=== PATIENT | male | born 1935 | race Caucasian/White ===

== ENCOUNTER 2017-12-12 14:30 | Inpatient (IN) | payer MEDICARE, BC, OTHER, SELFPAY ==
[2017-12-12] VITALS (12 sets, daily range): BP systolic 53–159; BP diastolic 39–77; PULSE 64–101; RESP 16–30; TEMP 36.4–37.3; O2SAT 90–97; BMI 30.2; BMI 30.7
--- NOTE | 2017-12-12 14:42 | ED.RN ---
PT DECLINES WHEN ASKED IF HE WOULD LIKE US TO CONTACT HIS DAUGHTER.
--- NOTE | 2017-12-12 14:51 | EKG12_ITS ---
Test Reason : HYPOTENSION Blood Pressure : / mmHG Vent. Rate : 094 BPM Atrial Rate : 094 BPM P-R Int : 240 ms QRS Dur : 124 ms QT Int : 400 ms P-R-T Axes : 000 143 026 degrees QTc Int : 500 ms Sinus rhythm with 1st degree A-V block with occasional Premature ventricular complexes Right bundle branch block Left posterior fascicular block Bifascicular block Inferior infarct , age undetermined Abnormal ECG Confirmed by ALICIA JENSEN, SANDRA ([id number]), restaurant expeditor ANIL DYER ([id number]) on 12/14/2017 2:30:44 PM Referred By: HARSH/GARRETT Confirmed By:SANDRA VARGAS MD
--- NOTE | 2017-12-12 14:51 | RAD_ITS ---
STUDY: X-RAY CHEST REASON FOR EXAM: Male, 82 years old. Cough. TECHNIQUE: Single AP portable view of the chest. COMPARISON: Comparison is made with prior study dated September 27, 2012. FINDINGS: EKG electrodes are seen. Since prior study, there has been progressive pleural-parenchymal changes in the left hemithorax. This may represent either progressive scarring or superimposed left lower lobe infiltrate. Left pleural scarring. Sternal cerclage wires and vascular clips are present from a prior sternotomy and coronary artery bypass graft procedure (CABG). Normal mediastinum and yosi. Normal visualized pulmonary arteries. There is atherosclerotic calcification of the aortic arch with tortuosity. There are diffuse degenerative changes of the visualized thoracic spine. Normal visualized ribs, clavicles, and shoulders. There is no demonstrated abnormality of the visualized soft tissue structures of the upper abdomen. RAD/Chest 1 View (Portable) IMPRESSION: Since prior study, there has been progressive pleural-parenchymal changes in the left hemithorax. This may represent either progressive fibrosis versus fibrosis and superimposed left basilar atelectasis and/or infiltrate. Radiographic follow-up is recommended. Electronically Signed: Rikki Hastings MD at 15:18 EDT Tel [phone], Service support ,
[2017-12-12 15:09] LABS: Absolute Lymphocyte Count 2.21 X10^3/ul (0.83-4.51); Absolute Neutrophil Count 11.5 X10^3/uL (2.0-7.7); Basophil# 0.07 X10^3/uL; Basophil% 0.5 % (0-1); Eosinophil# 0.02 X10^3/uL; Eosinophils% 0.1 % (0-5); Hematocrit 45.3 % (40-54); Hemoglobin 14.7 g/dl (13.0-16.5); Lymphocyte # 2.21 X10^3/ul (4.0); Lymphocyte % 15.1 % (19-41); Mean Corp Hgb Conc 32.5 g/gl (32-36); Mean Corpuscular Hgb 29.3 pg (27.0-32.0); Mean Corpuscular Volume 90.2 fL (80-94); Mean Platelet Vol. 9.6 fl (6.2-12.0); Monocyte# 0.85 X10^3/uL; Monocyte% 5.8 % (0-10); Neutrophil # 11.47 X10^3/uL (2.7-7.7); Neutrophil % 78.4 % (47-70); Platelet Count 285 K/mm3 (150-450); RBC Distribution Width CV 15.2 % (11.6-14.6); Red Blood Count 5.02 M/mm3 (4.6-6.2); White Blood Count 14.6 K/mm3 (4.4-11.0)
[2017-12-12 15:10] LABS: POSITIVE COUNT NO; POSITIVE DIFFERENTIAL NO; POSITIVE MORPHOLOGY NO
[2017-12-12 15:11] LABS: Prothrombin Time (Protime)PT. 13.6 SECONDS (11.7-14.9)
[2017-12-12] MEDS: 0.9% Normal Saline 1,000 ML IV.SOLN. 3100 ML IV (15:11)
[2017-12-12] MEDS: Ondansetron 4 MG/2 ML Vial IV (15:11)
[2017-12-12 15:12] LABS: Partial Thromboplast Time 25.7 Seconds (24.1-36.2)
[2017-12-12 15:14] LABS: AST(SGOT) 12 U/L (15-37); Alanine Aminotransfer ALT/SGPT 13 U/L (16-61); Albumin, Serum 3.8 g/dL (3.2-5.0); Alkaline Phosphatase 111 U/L (45-117); Anion Gap 9 (5-15); BUN 22 mg/dL (7-18); BUN/Creat Ratio 9.1 RATIO (10-20); Calcium,Total 9.1 mg/dL (8.5-10.1); Chloride 107 mmol/L (98-107); Creatinine, Serum 2.43 mg/dL (0.70-1.30); EST Glomerular Filtration Rate 27 mL/min (>60); Est Glom Filt Rate - Afr Amer 33 mL/min (>60); Glucose 128 mg/dL (74-106); Potassium 4.6 mmol/L (3.5-5.1); Protein, Total 7.8 g/dL (6.4-8.2); Sodium Level 141 mmol/L (136-145)
[2017-12-12 15:16] LABS: Bedside Glucose 122 mg/dL (70-110)
[2017-12-12 15:57] LABS: Lactic Acid 2.2 mmol/L (0.4-2.0)
--- NOTE | 2017-12-12 16:34 | ED.DCSUM_ITS ---
- ER Visit Summary Date of Service: 12/12/17 Chief Complaint: Nausea and vomiting History of Present Illness: The patient is a 82 M presenting for evaluation secondary to nausea and vomiting. Patient reports over the course last 3-4 days he has been having a significant amount of nausea vomiting and difficulty with keeping down fluids. Patient states that his emesis is nonbloody nonbilious, he denies any persistent abdominal pain. Patient reports that he has baseline dyspnea that is unchanged denies any chest pain denies any fevers denies any diarrhea. No blood in his emesis or blood in his stool. Review of systems otherwise negative. Physical Examination: Vital signs are notable for a blood pressure of 53/39. Ill-appearing male lying in the bed somewhat pale and diaphoretic but otherwise not in physiologic distress. No conjunctival pallor no scleral icterus. Dry mucous membranes. No JVD. Heart was regular rate and rhythm lungs sounds clear. Abdomen was soft nontender nondistended. Skin was somewhat cool and diaphoretic and peripheral pulses are decreased and +1 bilaterally no lateralizing neurological deficits. Test Results: CBC demonstrates leukocytosis of 14, chemistry shows acute kidney injury BUN of 22, creatinine 2.43. Lactic acid elevated 2.2. Chest x-ray shows atelectasis. Emergency Department Course and Treatment: Patient presented with a significant amount of hypotension. Immediately 2 IVs were established and the patient was given a 30 cc/kg fluid bolus. She actually had improvement of his blood pressure drastically from the 50s over 30s to 156/63 on repeat evaluation. Patient has evidence of lactic acidosis and elevated creatinine. I did not identify any other evidence of infection on this patient. Given the patient's profound hypotension I do believe that he requires admission and observation. I discussed this with the hospitalist and the patient will be admitted. Disposition: Admission Impression: 1. Hypertension 2. Dehydration 3. Acute kidney injury 4. Nausea and vomiting Critical care time 40 minutes This note was generated with [employer] dictation software. It may contain incorrect words, spelling, and punctuation that were not noted in review of the chart prior to signing ED Disposition - Plan for ED Patient: Chief Complaint: Nausea/Vomiting Referrals: Gomez Mcnally MD [Primary Care Provider] -
--- NOTE | 2017-12-12 16:53 | PCM.HP.STD ---
Problem List (1) Hyperlipidemia Status: Chronic (2) Stage III chronic kidney disease Status: Chronic (3) Type 2 diabetes mellitus Status: Chronic (4) Hypertension Status: Chronic (5) Status post coronary artery bypass graft Status: Chronic (6) Coronary artery disease Status: Chronic History of Present Illness Date of Admission: 12/12/17 Chief Complaint: Nausea and vomiting, low blood pressure. The patient is a 82 year old M with past medical history as mentioned above was referred to the ER by his PCP because of low blood pressure. The patient is poor informant and was not able to provide good history. He was sent by his PCP today for low blood pressure and complains of nausea and vomiting. He mentioned that he has been having nausea and minimal vomiting for last 3-4 days. He mentioned that the vomitus is nonbloody, nonbilious and he denies any abdominal pain. He denies fever chills. He denies constipation or diarrhea. He denies urinary symptoms. Denied cough or sputum production. Denied chest pain or shortness of breath. He has a history of type 2 diabetes mellitus and he has been on insulin, glipizide and Onglyza and his blood sugar seemed to be under control. He has history of CAD status post CABG followed by stents and he has been on aspirin, Plavix, beta blockers and AYAN inhibitors. He has a history of stage III chronic kidney disease and his creatinine has been around 1.9-2 mg/dL. Upon arrival to ER, blood pressure was very low at 53/59 and 92/51. He was afebrile, heart rate was stable and pulse ox is stable. His routine blood work is remarkable for leukocytosis, creatinine of 2.43. Lactic acid was 2.2. LFT was unremarkable. Chest x-ray revealed left mid and lower zone reticular shadow which could be due to fibrosis, no significant change compared to previous x-ray. EKG revealed sinus rhythm with first-degree AV block, AZ interval is 240 ms and also showed a right bundle branch block, no acute ischemic changes. He is being admitted for acute kidney injury double stage III chronic kidney disease, hypotension and lactic acidosis. Past Medical History Past Medical History (Chronic Problems): Chronic Problems Hyperlipidemia (Chronic) Stage III chronic kidney disease (Chronic) Type 2 diabetes mellitus (Chronic) Hypertension (Chronic) Status post coronary artery bypass graft (Chronic) Coronary artery disease (Chronic) Allergies venom-honey bee [bee venom (honey bee)] Allergy (Verified 12/12/17 14:39) Hives Home Medications: Ambulatory Orders Medication Instructions Recorded Atorvastatin Calcium [Lipitor] 40 mg PO QHS 02/17/16 Clopidogrel Bisulfate [Plavix] 75 mg PO DAILY 02/17/16 Furosemide [Lasix] 20 mg PO QODAY 02/17/16 Isosorbide Mononitrate [Isosorbide 30 mg PO DAILY 02/17/16 Mononitrate ER] Metoprolol Tartrate [Lopressor 12.5 mg PO BID 02/17/16 (Beta Vianey)] Omeprazole [Prilosec] 40 mg PO DAILY 02/17/16 Potassium Chloride [Klor-Con 10] 10 meq PO DAILY 02/17/16 Acetaminophen [Tylenol Extra 500 mg PO Q6H PRN PRN 12/12/17 Strength] Glipizide 5 mg PO DAILY 12/12/17 Glucosam/Chond/MSM/[place]/Hyal 1 each PO DAILY 12/12/17 [Glucosamine-Chondr Complex Tab] Insulin Glargine,Hum.rec.anlog 20 unit SQ QHS 12/12/17 [Lantus] Insulin Glargine,Hum.rec.anlog 46 unit SQ BREAKFAST 12/12/17 [Lantus] Lisinopril [Zestril] 2.5 mg PO QHS 12/12/17 Menthol [Biofreeze] 1 applic TP PRN PRN 12/12/17 Multivitamin [Daily Multiple 1 each PO DAILY 12/12/17 Vitamin] Koppel Xl 1 tab PO BID 12/12/17 Saxagliptin HCl [Onglyza] 2.5 mg PO DAILY 12/12/17 Stress Care 2 cap PO DAILY 12/12/17 Surgical History: noncontributory Psychiatric History: No pertinent psych hx Lives: Spouse/ Significant Other Smoking Status: Current every day smoker Tobacco Use: Cigarettes Alcohol: None Drugs: None - *Family History Maternal History Items: No pertinent history Paternal History Items: No pertinent history Review of Systems Constitutional: Denies: Anorexia, Chills, Fever, Weakness Eyes: Denies: Blurred vision, Double vision, Drainage, Redness HEENT: Denies: Difficulty Hearing, Ear Pain, Eye Pain, Nasal Congestion, Sore Throat Cardiovascular: Reports: Light Headedness. Denies: Chest Pain, Chest Tightness, Edema, Heaviness, Palpitations, Syncope Respiratory: Denies: Cough, Pleuritic Pain, Shortness of Breath, Sputum production, Wheezing Gastrointestinal: Reports: Nausea, Vomiting. Denies: Abdominal Pain, Constipation, Diarrhea Genitourinary: Denies: Dysuria, Frequency, Hematuria Musculoskeletal: Denies: Arm Pain, Back Pain, Foot Pain Skin: Denies: Dryness, Rash Neurological: Denies: Balance problems, Double vision, Change in Speech, Slurred speech, Confusion, Focal weakness, Incoordination, Numbness Psychiatric: Denies: Anxiety, Depression Endocrine: Denies: Change in Body Habitus, Polydipsia VTE Information - Inpt Only VTE Present on Admission: No VTE Mechan Device Prophylaxis: None VTE Pharm Prophylaxis ordered?: Yes - Physical Exam General: Alert, Oriented x3, Cooperative, No apparent distress HEENT: Atraumatic, PERRLA, EOMI, Normocephalic Oral: Moist Mucosa, No Gingival or Mucosal Lesions/ Ulcerations Neck: Supple, No JVD, Negative Carotid Bruits, Trachea Midline, Thyroid Normal Size and Texture Lungs: Clear to auscultation, No rhonchi, No wheeze, No rales, Diminished Cardiovascular: Regular rate, Regular Rhythm, Normal S1, Normal S2, PMI Normal Abdomen: Bowel Sounds Present, Soft, Non Tender, Non-Distended, No Hepato-splenomegaly, Obese Extremities: No clubbing, No cyanosis, No edema Skin: No rashes, No breakdown Lymphatic: No Cervical, Supraclavicular, or Inguinal Adenopathy Neurological: Cranial nerves II-XII grossly intact, Motor Exam 5/5 strength throughout Psych/Mental Status: Normal Affect, Appropriate, Alert and oriented to time, place, person, mood and affect Vital Signs Temp Pulse Resp BP Pulse Ox 98.2 F 81 19 H 156/63 H 97 12/12/17 16:05 12/12/17 16:04 12/12/17 16:04 12/12/17 16:04 12/12/17 16:04 Oxygen Flow Rate (L/min) 2 Oxygen Delivery Method Nasal Cannula Weight: 242 lb Body Mass Index (BMI) 30.2 Finger Stick Blood Glucose 122 Laboratory Tests Past 24 Hrs 12/12/17 12/12/17 12/12/17 14:41 14:41 14:41 WBC 14.6 H RBC 5.02 Hgb 14.7 Hct 45.3 MCV 90.2 MCH 29.3 MCHC 32.5 RDW 15.2 H RDW Differential 50.0 H Plt Count 285 MPV 9.6 Immature Gran % (Auto) 0.100 Neut % (Auto) 78.4 H Lymph % (Auto) 15.1 L Vilas % (Auto) 5.8 Eos % (Auto) 0.1 Baso % (Auto) 0.5 Absolute Neuts (auto) 11.5 H Absolute Lymphs (auto) 2.21 Total Counted Not Reportable PT 13.6 INR 1.0 APTT 25.7 Sodium 141 Potassium 4.6 Chloride 107 Carbon Dioxide 25.0 Anion Gap 9 BUN 22 H Creatinine 2.43 H Estim Creat Clear Calc 28.50 Est GFR (MDRD) Af Amer 33 L Est GFR (MDRD) Non-Af 27 L BUN/Creatinine Ratio 9.1 L Glucose 128 H Lactic Acid Calcium 9.1 Total Bilirubin 0.60 AST 12 L ALT 13 L Alkaline Phosphatase 111 Total Protein 7.8 Albumin 3.8 Globulin 4.0 Albumin/Globulin Ratio 1.0 12/12/17 15:02 WBC RBC Hgb Hct MCV MCH MCHC RDW RDW Differential Plt Count MPV Immature Gran % (Auto) Neut % (Auto) Lymph % (Auto) Vilas % (Auto) Eos % (Auto) Baso % (Auto) Absolute Neuts (auto) Absolute Lymphs (auto) Total Counted PT INR APTT Sodium Potassium Chloride Carbon Dioxide Anion Gap BUN Creatinine Estim Creat Clear Calc Est GFR (MDRD) Af Amer Est GFR (MDRD) Non-Af BUN/Creatinine Ratio Glucose Lactic Acid 2.2 H Calcium Total Bilirubin AST ALT Alkaline Phosphatase Total Protein Albumin Globulin Albumin/Globulin Ratio POC Glucose 12/12/17 15:09 POC Glucose 122 H Clinical Impression(s) from Imaging Studies Chest X-Ray 12/12/17 14:51 IMPRESSION: Since prior study, there has been progressive pleural-parenchymal changes in the left hemithorax. This may represent either progressive fibrosis versus fibrosis and superimposed left basilar atelectasis and/or infiltrate. Radiographic follow-up is recommended. Electronically Signed: Rikki Hastings MD at 15:18 EDT Tel [phone], Service support , Assessment/Plan This is an 82 years old male patient presented to the ED from his PCPs office for complaints of nausea and vomiting as well as very low blood pressure, found to have acute on chronic renal failure as well as lactic acidosis and he is being admitted for treatment. #1 hypotension: Initial blood pressure upon arrival to ER was 53/59. With IV fluid bolus therapy, blood pressure significantly improved. Patient is afebrile, heart rate stable, pulse ox is maintained on 2 L of oxygen. EKG reviewed as above. Chest x-ray showed chronic findings, no acute infiltrate. This is likely because of nausea and vomiting as well as his antihypertensive medications and diuretics. Plan: Admit to [facility] floor, cardiac monitoring, IV fluids, hold Lasix, lisinopril, repeat CBC and BMP tomorrow morning, repeat orthostatic vitals tomorrow morning, PT OT evaluation and treatment. #2 acute kidney injury double stage III chronic kidney disease: His baseline creatinine has been around 2 mg/dL. Admission creatinine is 2.4, this is likely because of dehydration, hypotension as well as diuretics and AYAN inhibitors. Patient has been on Lasix and lisinopril. Plan: IV fluids, input output chart, hold lisinopril and Lasix, repeat BMP tomorrow morning. #3 lactic acidosis: This is likely because of hypotension. He does have leukocytosis which is likely reactive secondary to stress and hypotension. Chest x-ray showed no acute findings, chronic findings noted. He denies urinary symptoms. At this time, infection is unlikely. Plan for IV fluids, repeat lactic acid in 3 hours, blood culture sent. #4 CAD status post CABG and stents: EKG reviewed, no acute ischemic changes. Patient denies any chest pain. Continue Plavix, statins, beta blockers, nitrates and lisinopril. #5 type 2 diabetes mellitus: ADA diet, Accu-Cheks, insulin scale, continue glipizide, continue Lantus insulin, continue Onglyza, sliding scale. #6 hypertension: At this time, blood pressure improved. Plan to hold Lasix and lisinopril, continue metoprolol and nitrates. #7 stage III chronic kidney disease: Baseline creatinine has been around 1.9-2 mg/dL, plan as above. #8 hyperlipidemia: Continue statins. #9 DVT prophylaxis: Subcu heparin. This note was generated with [employer] dictation software. It may contain incorrect words, spelling, and punctuation that were not noted in checking the note before signing. Code Visit Inpatient E&M: 42870 Init Hosp L3
--- NOTE | 2017-12-12 17:04 | HP.PCM_ITS ---
Problem List (1) Hyperlipidemia Status: Chronic (2) Stage III chronic kidney disease Status: Chronic (3) Type 2 diabetes mellitus Status: Chronic (4) Hypertension Status: Chronic (5) Status post coronary artery bypass graft Status: Chronic (6) Coronary artery disease Status: Chronic History of Present Illness Date of Admission: 12/12/17 Chief Complaint: Nausea and vomiting, low blood pressure. The patient is a 82 year old M with past medical history as mentioned above was referred to the ER by his PCP because of low blood pressure. The patient is poor informant and was not able to provide good history. He was sent by his PCP today for low blood pressure and complains of nausea and vomiting. He mentioned that he has been having nausea and minimal vomiting for last 3-4 days. He mentioned that the vomitus is nonbloody, nonbilious and he denies any abdominal pain. He denies fever chills. He denies constipation or diarrhea. He denies urinary symptoms. Denied cough or sputum production. Denied chest pain or shortness of breath. He has a history of type 2 diabetes mellitus and he has been on insulin, glipizide and Onglyza and his blood sugar seemed to be under control. He has history of CAD status post CABG followed by stents and he has been on aspirin, Plavix, beta blockers and AYAN inhibitors. He has a history of stage III chronic kidney disease and his creatinine has been around 1.9-2 mg/dL. Upon arrival to ER, blood pressure was very low at 53/59 and 92/ 51. He was afebrile, heart rate was stable and pulse ox is stable. His routine blood work is remarkable for leukocytosis, creatinine of 2.43. Lactic acid was 2.2. LFT was unremarkable. Chest x-ray revealed left mid and lower zone reticular shadow which could be due to fibrosis, no significant change compared to previous x-ray. EKG revealed sinus rhythm with first-degree AV block, WA interval is 240 ms and also showed a right bundle branch block, no acute ischemic changes. He is being admitted for acute kidney injury double stage III chronic kidney disease, hypotension and lactic acidosis. Past Medical History Past Medical History (Chronic Problems): Chronic Problems Hyperlipidemia (Chronic) Stage III chronic kidney disease (Chronic) Type 2 diabetes mellitus (Chronic) Hypertension (Chronic) Status post coronary artery bypass graft (Chronic) Coronary artery disease (Chronic) Allergies venom-honey bee [bee venom (honey bee)] Allergy (Verified 12/12/17 14:39) Hives Home Medications: Ambulatory Orders Medication Instructions Recorded Atorvastatin Calcium [Lipitor] 40 mg PO QHS 02/17/16 Clopidogrel Bisulfate [Plavix] 75 mg PO DAILY 02/17/16 Furosemide [Lasix] 20 mg PO QODAY 02/17/16 Isosorbide Mononitrate [Isosorbide 30 mg PO DAILY 02/17/16 Mononitrate ER] Metoprolol Tartrate [Lopressor 12.5 mg PO BID 02/17/16 (Beta Vianey)] Omeprazole [Prilosec] 40 mg PO DAILY 02/17/16 Potassium Chloride [Klor-Con 10] 10 meq PO DAILY 02/17/16 Acetaminophen [Tylenol Extra 500 mg PO Q6H PRN PRN 12/12/17 Strength] Glipizide 5 mg PO DAILY 12/12/17 Glucosam/Chond/MSM/Stamps/Hyal 1 each PO DAILY 12/12/17 [Glucosamine-Chondr Complex Tab] Insulin Glargine,Hum.rec.anlog 20 unit SQ QHS 12/12/17 [Lantus] Insulin Glargine,Hum.rec.anlog 46 unit SQ BREAKFAST 12/12/17 [Lantus] Lisinopril [Zestril] 2.5 mg PO QHS 12/12/17 Menthol [Biofreeze] 1 applic TP PRN PRN 12/12/17 Multivitamin [Daily Multiple 1 each PO DAILY 12/12/17 Vitamin] [place] Xl 1 tab PO BID 12/12/17 Saxagliptin HCl [Onglyza] 2.5 mg PO DAILY 12/12/17 Stress Care 2 cap PO DAILY 12/12/17 Surgical History: noncontributory Psychiatric History: No pertinent psych hx Lives: Spouse/ Significant Other Smoking Status: Current every day smoker Tobacco Use: Cigarettes Alcohol: None Drugs: None - *Family History Maternal History Items: No pertinent history Paternal History Items: No pertinent history Review of Systems Constitutional: Denies: Anorexia, Chills, Fever, Weakness Eyes: Denies: Blurred vision, Double vision, Drainage, Redness HEENT: Denies: Difficulty Hearing, Ear Pain, Eye Pain, Nasal Congestion, Sore Throat Cardiovascular: Reports: Light Headedness. Denies: Chest Pain, Chest Tightness , Edema, Heaviness, Palpitations, Syncope Respiratory: Denies: Cough, Pleuritic Pain, Shortness of Breath, Sputum production, Wheezing Gastrointestinal: Reports: Nausea, Vomiting. Denies: Abdominal Pain, Constipation, Diarrhea Genitourinary: Denies: Dysuria, Frequency, Hematuria Musculoskeletal: Denies: Arm Pain, Back Pain, Foot Pain Skin: Denies: Dryness, Rash Neurological: Denies: Balance problems, Double vision, Change in Speech, Slurred speech, Confusion, Focal weakness, Incoordination, Numbness Psychiatric: Denies: Anxiety, Depression Endocrine: Denies: Change in Body Habitus, Polydipsia VTE Information - Inpt Only VTE Present on Admission: No VTE Mechan Device Prophylaxis: None VTE Pharm Prophylaxis ordered?: Yes - Physical Exam General: Alert, Oriented x3, Cooperative, No apparent distress HEENT: Atraumatic, PERRLA, EOMI, Normocephalic Oral: Moist Mucosa, No Gingival or Mucosal Lesions/ Ulcerations Neck: Supple, No JVD, Negative Carotid Bruits, Trachea Midline, Thyroid Normal Size and Texture Lungs: Clear to auscultation, No rhonchi, No wheeze, No rales, Diminished Cardiovascular: Regular rate, Regular Rhythm, Normal S1, Normal S2, PMI Normal Abdomen: Bowel Sounds Present, Soft, Non Tender, Non-Distended, No Hepato- splenomegaly, Obese Extremities: No clubbing, No cyanosis, No edema Skin: No rashes, No breakdown Lymphatic: No Cervical, Supraclavicular, or Inguinal Adenopathy Neurological: Cranial nerves II-XII grossly intact, Motor Exam 5/5 strength throughout Psych/Mental Status: Normal Affect, Appropriate, Alert and oriented to time, place, person, mood and affect Vital Signs Temp Pulse Resp BP Pulse Ox 98.2 F 81 19 H 156/63 H 97 12/12/17 16:05 12/12/17 16:04 12/12/17 16:04 12/12/17 16:04 12/12/17 16:04 Oxygen Flow Rate (L/min) 2 Oxygen Delivery Method Nasal Cannula Weight: 242 lb Body Mass Index (BMI) 30.2 Finger Stick Blood Glucose 122 Laboratory Tests Past 24 Hrs 12/12/17 12/12/17 12/12/17 14:41 14:41 14:41 WBC 14.6 H RBC 5.02 Hgb 14.7 Hct 45.3 MCV 90.2 MCH 29.3 MCHC 32.5 RDW 15.2 H RDW Differential 50.0 H Plt Count 285 MPV 9.6 Immature Gran % (Auto) 0.100 Neut % (Auto) 78.4 H Lymph % (Auto) 15.1 L [place] % (Auto) 5.8 Eos % (Auto) 0.1 Baso % (Auto) 0.5 Absolute Neuts (auto) 11.5 H Absolute Lymphs (auto) 2.21 Total Counted Not Reportable PT 13.6 INR 1.0 APTT 25.7 Sodium 141 Potassium 4.6 Chloride 107 Carbon Dioxide 25.0 Anion Gap 9 BUN 22 H Creatinine 2.43 H Estim Creat Clear Calc 28.50 Est GFR (MDRD) Af Amer 33 L Est GFR (MDRD) Non-Af 27 L BUN/Creatinine Ratio 9.1 L Glucose 128 H Lactic Acid Calcium 9.1 Total Bilirubin 0.60 AST 12 L ALT 13 L Alkaline Phosphatase 111 Total Protein 7.8 Albumin 3.8 Globulin 4.0 Albumin/Globulin Ratio 1.0 12/12/17 15:02 WBC RBC Hgb Hct MCV MCH MCHC RDW RDW Differential Plt Count MPV Immature Gran % (Auto) Neut % (Auto) Lymph % (Auto) [place] % (Auto) Eos % (Auto) Baso % (Auto) Absolute Neuts (auto) Absolute Lymphs (auto) Total Counted PT INR APTT Sodium Potassium Chloride Carbon Dioxide Anion Gap BUN Creatinine Estim Creat Clear Calc Est GFR (MDRD) Af Amer Est GFR (MDRD) Non-Af BUN/Creatinine Ratio Glucose Lactic Acid 2.2 H Calcium Total Bilirubin AST ALT Alkaline Phosphatase Total Protein Albumin Globulin Albumin/Globulin Ratio POC Glucose 12/12/17 15:09 POC Glucose 122 H Clinical Impression(s) from Imaging Studies Chest X-Ray 12/12/17 14:51 IMPRESSION: Since prior study, there has been progressive pleural-parenchymal changes in the left hemithorax. This may represent either progressive fibrosis versus fibrosis and superimposed left basilar atelectasis and/or infiltrate. Radiographic follow-up is recommended. Electronically Signed: Rikki Hastings MD at 15:18 EDT Tel [phone], Service support , Assessment/Plan This is an 82 years old male patient presented to the ED from his PCPs office for complaints of nausea and vomiting as well as very low blood pressure, found to have acute on chronic renal failure as well as lactic acidosis and he is being admitted for treatment. #1 hypotension: Initial blood pressure upon arrival to ER was 53/59. With IV fluid bolus therapy, blood pressure significantly improved. Patient is afebrile , heart rate stable, pulse ox is maintained on 2 L of oxygen. EKG reviewed as above. Chest x-ray showed chronic findings, no acute infiltrate. This is likely because of nausea and vomiting as well as his antihypertensive medications and diuretics. Plan: Admit to [facility] floor, cardiac monitoring, IV fluids, hold Lasix, lisinopril, repeat CBC and BMP tomorrow morning, repeat orthostatic vitals tomorrow morning, PT OT evaluation and treatment. #2 acute kidney injury double stage III chronic kidney disease: His baseline creatinine has been around 2 mg/dL. Admission creatinine is 2.4, this is likely because of dehydration, hypotension as well as diuretics and AYAN inhibitors. Patient has been on Lasix and lisinopril. Plan: IV fluids, input output chart, hold lisinopril and Lasix, repeat BMP tomorrow morning. #3 lactic acidosis: This is likely because of hypotension. He does have leukocytosis which is likely reactive secondary to stress and hypotension. Chest x-ray showed no acute findings, chronic findings noted. He denies urinary symptoms. At this time, infection is unlikely. Plan for IV fluids, repeat lactic acid in 3 hours, blood culture sent. #4 CAD status post CABG and stents: EKG reviewed, no acute ischemic changes. Patient denies any chest pain. Continue Plavix, statins, beta blockers, nitrates and lisinopril. #5 type 2 diabetes mellitus: ADA diet, Accu-Cheks, insulin scale, continue glipizide, continue Lantus insulin, continue Onglyza, sliding scale. #6 hypertension: At this time, blood pressure improved. Plan to hold Lasix and lisinopril, continue metoprolol and nitrates. #7 stage III chronic kidney disease: Baseline creatinine has been around 1.9-2 mg/dL, plan as above. #8 hyperlipidemia: Continue statins. #9 DVT prophylaxis: Subcu heparin. This note was generated with [employer] dictation software. It may contain incorrect words, spelling, and punctuation that were not noted in checking the note before signing. Code Visit Inpatient E&M: 39705 Init Hosp L3
[2017-12-12] MEDS: 0.9% Normal Saline 1,000 ML 125 ML IV (17:23)
[2017-12-12 19:11] LABS: Reflex Lactate? Y
[2017-12-12 19:30] LABS: Lactic Acid 1.1 mmol/L (0.4-2.0)
[2017-12-12] MEDS: CLARIFY ORDER NOTE (22:28)
[2017-12-12] MEDS: Metoprolol Tartrate 25 MG Tablet 12.5 MG PO (22:39)
[2017-12-12] MEDS: Atorvastatin Calcium 40 MG Tablet PO (22:39)
[2017-12-12] MEDS: Insulin Lispro 100 UNIT/ML INSULN.PEN SC (22:40)
[2017-12-12 23:26] LABS: Bedside Glucose 154 mg/dL (70-110)
[2017-12-13] VITALS (11 sets, daily range): BP systolic 137–174; BP diastolic 60–92; PULSE 64–93; RESP 18–20; TEMP 36.7–37.1; O2SAT 95–98
[2017-12-13 01:02] LABS: Bacteria 0 SEEN /hpf (None Seen); Mucous, Urine 0 SEEN /hpf (<or=2+); Red Blood Cells-Urine 0 SEEN /hpf (0-5); Squamous Epithelial Cells - UA 0 SEEN /hpf (0-5); White Blood Cells 0 SEEN /hpf (0-5)
[2017-12-13 01:05] LABS: Color, Urine Yellow (Yellow); Glucose, Dipstick Normal (Normal); Ketone-Dipstick Negative (Negative); Leukocyte Esterase-Dipstick Negative /ul (Negative); Nitrite-Dipstick Negative (Negative); Occult Blood-Urine Negative /ul (Negative); Protein-Dipstick 30 mg/dl (Negative); Urine Bilirubin Dipstick Negative (Negative); Urine Clarity Clear (Clear); Urine Urobilinogen Normal (Normal)
[2017-12-13] MEDS: 0.9% Normal Saline 1,000 ML 125 ML IV ×3 (03:39→23:10)
[2017-12-13 06:10] LABS: Anion Gap 7 (5-15); BUN 22 mg/dL (7-18); BUN/Creat Ratio 12.1 RATIO (10-20); Calcium,Total 8.2 mg/dL (8.5-10.1); Chloride 113 mmol/L (98-107); Creatinine, Serum 1.82 mg/dL (0.70-1.30); EST Glomerular Filtration Rate 38 mL/min (>60); Est Glom Filt Rate - Afr Amer 46 mL/min (>60); Estimated Creatinine Clearance 38.05 ml/min; Glucose 76 mg/dL (74-106); Potassium 4.4 mmol/L (3.5-5.1); Sodium Level 146 mmol/L (136-145)
[2017-12-13 06:49] LABS: Absolute Lymphocyte Count 3.21 X10^3/ul (0.83-4.51); Absolute Neutrophil Count 7.7 X10^3/uL (2.0-7.7); Basophil# 0.11 X10^3/uL; Basophil% 0.9 % (0-1); Eosinophil# 0.24 X10^3/uL; Eosinophils% 1.9 % (0-5); Hematocrit 40.3 % (40-54); Hemoglobin 12.4 g/dl (13.0-16.5); Lymphocyte # 3.21 X10^3/ul (4.0); Lymphocyte % 26.1 % (19-41); Mean Corp Hgb Conc 30.8 g/gl (32-36); Mean Corpuscular Hgb 28.4 pg (27.0-32.0); Mean Corpuscular Volume 92.4 fL (80-94); Mean Platelet Vol. 9.5 fl (6.2-12.0); Monocyte# 1.06 X10^3/uL; Monocyte% 8.6 % (0-10); Neutrophil # 7.67 X10^3/uL (2.7-7.7); Neutrophil % 62.3 % (47-70); POSITIVE COUNT NO; POSITIVE DIFFERENTIAL NO; POSITIVE MORPHOLOGY NO; Platelet Count 239 K/mm3 (150-450); RBC Distribution Width CV 15.3 % (11.6-14.6); RBC Distribution Width SD 52.2 fl (35.1-43.9); Red Blood Count 4.36 M/mm3 (4.6-6.2); White Blood Count 12.3 K/mm3 (4.4-11.0)
[2017-12-13 07:06] LABS: Bedside Glucose 71 mg/dL (70-110)
[2017-12-13 07:06] LABS: Bedside Glucose 66 mg/dL (70-110)
[2017-12-13] MEDS: Metoprolol Tartrate 25 MG Tablet 12.5 MG PO ×2 (09:40→21:50)
[2017-12-13] MEDS: LINAGLIPTIN 5 MG TABLET PO (09:40)
[2017-12-13] MEDS: Clopidogrel Bisulfate 75 MG Tablet PO (09:40)
[2017-12-13] MEDS: Pantoprazole Sodium 40 MG Tablet PO (09:40)
[2017-12-13] MEDS: Isosorbide Mononitrate 30 MG Tablet PO (09:40)
--- NOTE | 2017-12-13 11:11 | NURSING ---
Update given to daughter (Caridad) at this time. Patient gave verbal consent to this RN giving update.
[2017-12-13 11:31] LABS: Bedside Glucose 114 mg/dL (70-110)
--- NOTE | 2017-12-13 13:02 | PCM.PN.HOSP ---
Subjective: Patient is an 82-year-old male with a past medical history of hyperlipidemia, CKD stage III, type 2 diabetes, hypertension, and CAD s/p CABG. Patient was admitted via the ED on 12/12/17 from his PCP's office o/a of low blood pressure. He also complained of nausea and vomiting. for 3 days prior to presentation. Emesis was nonbilious and nonbloody. BP in [facility] ED was 53/59, which improved with administration of IVF. He is being managed for [place]-on-CKD , hypotension and lactic acidosis likely due to decreased intake and vomiting. Patient seen and examined this morning. Feels much better and has no complaints. He denies any fever chills, any shortness of breath, any chest pain, any abdominal pain, any diarrhea vomiting. Review of systems otherwise negative. Vitals/I&O's: Vital Signs Temp Pulse Resp BP Pulse Ox 98.6 F 64 20 H 154/60 H 95 12/13/17 09:34 12/13/17 11:05 12/13/17 09:34 12/13/17 09:34 12/13/17 09:34 Oxygen Flow Rate (L/min) 1 Oxygen Delivery Method Room Air Weight: 245 lb 5.992 oz Body Mass Index (BMI) 30.7 Intake and Output for Last 24 Hours 12/11/17 12/12/17 12/13/17 23:59 23:59 23:59 Intake Total 800 / 800 3162 / 3162 Output Total 1350 / 1350 Balance 800 / 800 1812 / 1812 General: Alert, Oriented x3, Cooperative, No apparent distress HEENT: Atraumatic, PERRLA, EOMI, Normocephalic Oral: Moist Mucosa Neck: Supple, No JVD, Negative Carotid Bruits Lungs: Normal air movement, - - moderate bilateral coarse crackles in mid and lower lung [place] Cardiovascular: Regular rate, Regular Rhythm, Normal S1, Normal S2, No murmurs Abdomen: Bowel Sounds Present, Soft, Non Tender, Non-Distended, No Hepato-splenomegaly Extremities: No clubbing, No cyanosis, No edema, Capillary Refill Less than 3 Seconds Skin: No rashes, No breakdown Musculoskeletal: No Tenderness to Palpation of Joints or Extremities, No Muscle Wasting Lymphatic: No Cervical, Supraclavicular, or Inguinal Adenopathy Neurological: Cranial nerves II-XII grossly intact Psych/Mental Status: Normal Affect, Appropriate, Alert and oriented to time, place, person, mood and affect Laboratory Results 12/12/17 18:47: Lactic Acid Cancelled 12/12/17 18:47: Lactic Acid 1.1 12/12/17 22:37: POC Glucose 154 H 12/13/17 00:35: Urine Color Yellow, Urine Clarity Clear, Urine pH 6.0, Ur Specific [place] 1.010, Urine Protein 30 H, Urine Glucose (UA) Normal, Urine Ketones Negative, Urine Occult Blood Negative, Urine Nitrite Negative, Urine Bilirubin Negative, Urine Urobilinogen Normal, Ur Leukocyte Esterase Negative, Urine RBC 0 SEEN, Urine WBC 0 SEEN, Ur Squamous Epith Cells 0 SEEN, Urine Bacteria 0 SEEN, Urine Mucus 0 SEEN 12/13/17 05:24: WBC 12.3 H, RBC 4.36 L, Hgb 12.4 L, Hct 40.3, MCV 92.4, MCH 28.4, MCHC 30.8 L, RDW 15.3 H, RDW Differential 52.2 H, Plt Count 239, MPV 9.5, Immature Gran % (Auto) 0.200, Neut % (Auto) 62.3, Lymph % (Auto) 26.1, [place] % (Auto) 8.6, Eos % (Auto) 1.9, Baso % (Auto) 0.9, Absolute Neuts (auto) 7.7, Absolute Lymphs (auto) 3.21, Total Counted Not Reportable 12/13/17 05:24: Sodium 146 H, Potassium 4.4, Chloride 113 H, Carbon Dioxide 26.0, Anion Gap 7, BUN 22 H, Creatinine 1.82 H, Estim Creat Clear Calc 38.05, Est GFR (MDRD) Af Amer 46 L, Est GFR (MDRD) Non-Af 38 L, BUN/Creatinine Ratio 12.1, Glucose 76, Calcium 8.2 L 12/13/17 06:42: POC Glucose 66 L 12/13/17 06:59: POC Glucose 71 12/13/17 11:20: POC Glucose 114 H Diagnostic Data Chest X-Ray 12/12/17 14:51 IMPRESSION: Since prior study, there has been progressive pleural-parenchymal changes in the left hemithorax. This may represent either progressive fibrosis versus fibrosis and superimposed left basilar atelectasis and/or infiltrate. Radiographic follow-up is recommended. Electronically Signed: Rikki Hastings MD at 15:18 EDT Tel [phone], Service support , Current Medications Acetaminophen (Tylenol) 500 mg PO Q6H PRN PRN PRN Reason: PAIN Atorvastatin Calcium (Lipitor) 40 mg PO QHS [facility] Last Admin: 12/12/17 22:39 Dose: 40 mg Clopidogrel Bisulfate (Plavix) 75 mg PO DAILY [facility] Last Admin: 12/13/17 09:40 Dose: 75 mg Glipizide (Glucotrol) 5 mg PO DAILY [facility] Heparin Sodium (Porcine) (Heparin Na) 5,000 unit SC Q8 [facility] Last Admin: 12/13/17 06:40 Dose: Not Given Sodium Chloride () 1,000 mls @ 125 mls/hr IV .Q8H [facility] Last Admin: 12/13/17 03:39 Dose: 125 mls/hr Sodium Chloride () 250 mls @ 15 mls/hr IV .[id number] PRN PRN Reason: SALINE FLUSH Insulin Glargine (Lantus (Bkc)) 20 units SC QHS [facility] Last Admin: 12/12/17 22:39 Dose: 20 u Insulin Glargine (Lantus (Bkc)) 46 units SC BREAKFAST [facility] Last Admin: 12/13/17 09:39 Dose: 46 u Insulin Human Lispro (Humalog Kwikpen (Bkc)) 0 unit SC ACHS [facility] PRN Reason: Protocol Last Admin: 12/13/17 11:27 Dose: Not Given Isosorbide Mononitrate (Imdur) 30 mg PO DAILY [facility] Last Admin: 12/13/17 09:40 Dose: 30 mg Linagliptin (Tradjenta) 5 mg PO DAILY [facility] Last Admin: 12/13/17 09:40 Dose: 5 mg Magnesium Hydroxide (Milk Of Magnesia) 30 ml PO DAILY PRN PRN PRN Reason: Constipation Metoprolol Tartrate (Lopressor (Beta Vianey)) 12.5 mg PO BID [facility] Last Admin: 12/13/17 09:40 Dose: 12.5 mg Pantoprazole Sodium (Protonix) 40 mg PO DAILY [facility] Last Admin: 12/13/17 09:40 Dose: 40 mg Sodium Chloride () 5 - 30 ml IV UD PRN PRN Reason: SALINE FLUSH Medical Necessity - Tobacco Use Smoking Status: Current every day smoker Tobacco Use: Cigarettes Assessment/Plan 82-year-old male admitted from his PCPs office with complaint of nausea and vomiting was found to have a low blood pressure. Be managed for acute on chronic renal failure and lactic acidosis. 1. Hypotension due to decreased oral intake and diuretics Patient's BP is also as low as 50 systolic. Improved with IV fluid administration. Is no complaints this morning. Had been having nausea and vomiting, although while still taking his diuretics and this believed to be the cause. lactic Acid was also elevated at time of admission. Blood pressure this morning is 154 4/60. Is on IV fluids at 1 50 cc/h. We will cut down on IV fluid administration Lasix and antihypertensives currently on hold. Will resume anti-hypertensive slowly. 2. [place] on CKD, likely pre-renal Creatinine was 2.43 on admission. Slides around 2. Creatinine down to 1.82 this morning. Diuretics and AYAN inhibitors on hold. Had a total input of about 3 L since yesterday and output of 1.35 L. [place] is resolving. We will continue monitoring. 3. lactic acidosis Likely due to hypotension. No evidence of infection noted. Resolved. Was 2.2 on admission, trended down to 1.1. 4. Hypernatremia: Na is 146; was 141 on admission. Likely due to IVF administration. Will switch to 1/2 NS @ 100cc/hr 5. CAD status post CABG and stents: Stable. EKG on admission showed no acute ST changes. On aspirin, Plavix, statins, beta vianey, nitrates and lisinopril. Beta blockers and lisinopril on hold on account of hypotension. 6. Type 2 diabetes mellitus on glipizide and onglyza (formulary here has Tradjenta, so patient is now on Tradjenta) on ISS and lantus insulin 20IU qhs and 46IU qam accuchecks ACHS 7. Hyperlipidemia: stable. On statin 8. DVT prophylaxis: heparin SC This note was generated with [email or web address] dictation software. It may contain incorrect words, spelling, and punctuation that were not noted in checking the note before signing. Code Visit Inpatient E&M: 07060 Subs Hosp L3
--- NOTE | 2017-12-13 13:22 | PN_ITS ---
Subjective: Patient is an 82-year-old male with a past medical history of hyperlipidemia, CKD stage III, type 2 diabetes, hypertension, and CAD s/p CABG. Patient was admitted via the ED on 12/12/17 from his PCP's office o/a of low blood pressure. He also complained of nausea and vomiting. for 3 days prior to presentation. Emesis was nonbilious and nonbloody. BP in [facility] ED was 53/59, which improved with administration of IVF. He is being managed for [place]-on-CKD , hypotension and lactic acidosis likely due to decreased intake and vomiting. Patient seen and examined this morning. Feels much better and has no complaints. He denies any fever chills, any shortness of breath, any chest pain , any abdominal pain, any diarrhea vomiting. Review of systems otherwise negative. Vitals/I&O's: Vital Signs Temp Pulse Resp BP Pulse Ox 98.6 F 64 20 H 154/60 H 95 12/13/17 09:34 12/13/17 11:05 12/13/17 09:34 12/13/17 09:34 12/13/17 09:34 Oxygen Flow Rate (L/min) 1 Oxygen Delivery Method Room Air Weight: 245 lb 5.992 oz Body Mass Index (BMI) 30.7 Intake and Output for Last 24 Hours 12/11/17 12/12/17 12/13/17 23:59 23:59 23:59 Intake Total 800 / 800 3162 / 3162 Output Total 1350 / 1350 Balance 800 / 800 1812 / 1812 General: Alert, Oriented x3, Cooperative, No apparent distress HEENT: Atraumatic, PERRLA, EOMI, Normocephalic Oral: Moist Mucosa Neck: Supple, No JVD, Negative Carotid Bruits Lungs: Normal air movement, - - moderate bilateral coarse crackles in mid and lower lung [place] Cardiovascular: Regular rate, Regular Rhythm, Normal S1, Normal S2, No murmurs Abdomen: Bowel Sounds Present, Soft, Non Tender, Non-Distended, No Hepato- splenomegaly Extremities: No clubbing, No cyanosis, No edema, Capillary Refill Less than 3 Seconds Skin: No rashes, No breakdown Musculoskeletal: No Tenderness to Palpation of Joints or Extremities, No Muscle Wasting Lymphatic: No Cervical, Supraclavicular, or Inguinal Adenopathy Neurological: Cranial nerves II-XII grossly intact Psych/Mental Status: Normal Affect, Appropriate, Alert and oriented to time, place, person, mood and affect Laboratory Results 12/12/17 18:47: Lactic Acid Cancelled 12/12/17 18:47: Lactic Acid 1.1 12/12/17 22:37: POC Glucose 154 H 12/13/17 00:35: Urine Color Yellow, Urine Clarity Clear, Urine pH 6.0, Ur Specific [place] 1.010, Urine Protein 30 H, Urine Glucose (UA) Normal, Urine Ketones Negative, Urine Occult Blood Negative, Urine Nitrite Negative, Urine Bilirubin Negative, Urine Urobilinogen Normal, Ur Leukocyte Esterase Negative, Urine RBC 0 SEEN, Urine WBC 0 SEEN, Ur Squamous Epith Cells 0 SEEN, Urine Bacteria 0 SEEN, Urine Mucus 0 SEEN 12/13/17 05:24: WBC 12.3 H, RBC 4.36 L, Hgb 12.4 L, Hct 40.3, MCV 92.4, MCH 28.4 , MCHC 30.8 L, RDW 15.3 H, RDW Differential 52.2 H, Plt Count 239, MPV 9.5, Immature Gran % (Auto) 0.200, Neut % (Auto) 62.3, Lymph % (Auto) 26.1, [place] % ( Auto) 8.6, Eos % (Auto) 1.9, Baso % (Auto) 0.9, Absolute Neuts (auto) 7.7, Absolute Lymphs (auto) 3.21, Total Counted Not Reportable 12/13/17 05:24: Sodium 146 H, Potassium 4.4, Chloride 113 H, Carbon Dioxide 26.0 , Anion Gap 7, BUN 22 H, Creatinine 1.82 H, Estim Creat Clear Calc 38.05, Est GFR (MDRD) Af Amer 46 L, Est GFR (MDRD) Non-Af 38 L, BUN/Creatinine Ratio 12.1, Glucose 76, Calcium 8.2 L 12/13/17 06:42: POC Glucose 66 L 12/13/17 06:59: POC Glucose 71 12/13/17 11:20: POC Glucose 114 H Diagnostic Data Chest X-Ray 12/12/17 14:51 IMPRESSION: Since prior study, there has been progressive pleural-parenchymal changes in the left hemithorax. This may represent either progressive fibrosis versus fibrosis and superimposed left basilar atelectasis and/or infiltrate. Radiographic follow-up is recommended. Electronically Signed: Rikki Hastings MD at 15:18 EDT Tel [phone], Service support , Current Medications Acetaminophen (Tylenol) 500 mg PO Q6H PRN PRN PRN Reason: PAIN Atorvastatin Calcium (Lipitor) 40 mg PO QHS [facility] Last Admin: 12/12/17 22:39 Dose: 40 mg Clopidogrel Bisulfate (Plavix) 75 mg PO DAILY [facility] Last Admin: 12/13/17 09:40 Dose: 75 mg Glipizide (Glucotrol) 5 mg PO DAILY [facility] Heparin Sodium (Porcine) (Heparin Na) 5,000 unit SC Q8 [facility] Last Admin: 12/13/17 06:40 Dose: Not Given Sodium Chloride () 1,000 mls @ 125 mls/hr IV .Q8H [facility] Last Admin: 12/13/17 03:39 Dose: 125 mls/hr Sodium Chloride () 250 mls @ 15 mls/hr IV .[id number] PRN PRN Reason: SALINE FLUSH Insulin Glargine (Lantus (Bkc)) 20 units SC QHS [facility] Last Admin: 12/12/17 22:39 Dose: 20 u Insulin Glargine (Lantus (Bkc)) 46 units SC BREAKFAST [facility] Last Admin: 12/13/17 09:39 Dose: 46 u Insulin Human Lispro (Humalog Kwikpen (Bkc)) 0 unit SC ACHS [facility] PRN Reason: Protocol Last Admin: 12/13/17 11:27 Dose: Not Given Isosorbide Mononitrate (Imdur) 30 mg PO DAILY [facility] Last Admin: 12/13/17 09:40 Dose: 30 mg Linagliptin (Tradjenta) 5 mg PO DAILY [facility] Last Admin: 12/13/17 09:40 Dose: 5 mg Magnesium Hydroxide (Milk Of Magnesia) 30 ml PO DAILY PRN PRN PRN Reason: Constipation Metoprolol Tartrate (Lopressor (Beta Vianey)) 12.5 mg PO BID [facility] Last Admin: 12/13/17 09:40 Dose: 12.5 mg Pantoprazole Sodium (Protonix) 40 mg PO DAILY [facility] Last Admin: 12/13/17 09:40 Dose: 40 mg Sodium Chloride () 5 - 30 ml IV UD PRN PRN Reason: SALINE FLUSH Medical Necessity - Tobacco Use Smoking Status: Current every day smoker Tobacco Use: Cigarettes Assessment/Plan 82-year-old male admitted from his PCPs office with complaint of nausea and vomiting was found to have a low blood pressure. Be managed for acute on chronic renal failure and lactic acidosis. 1. Hypotension due to decreased oral intake and diuretics * Patient's BP is also as low as 50 systolic. Improved with IV fluid administration. * Is no complaints this morning. Had been having nausea and vomiting, although while still taking his diuretics and this believed to be the cause. * lactic Acid was also elevated at time of admission. * Blood pressure this morning is 154 4/60. * Is on IV fluids at 1 50 cc/h. We will cut down on IV fluid administration * Lasix and antihypertensives currently on hold. Will resume anti-hypertensive slowly. * 2. [place] on CKD, likely pre-renal * Creatinine was 2.43 on admission. Slides around 2. Creatinine down to 1.82 this morning. * Diuretics and AYAN inhibitors on hold. * Had a total input of about 3 L since yesterday and output of 1.35 L. * [place] is resolving. We will continue monitoring. * * 3. lactic acidosis * Likely due to hypotension. No evidence of infection noted. * Resolved. Was 2.2 on admission, trended down to 1.1. * 4. Hypernatremia: Na is 146; was 141 on admission. Likely due to IVF administration. Will switch to 1/2 NS @ 100cc/hr 5. CAD status post CABG and stents: * Stable. * EKG on admission showed no acute ST changes. * On aspirin, Plavix, statins, beta vianey, nitrates and lisinopril. Beta blockers and lisinopril on hold on account of hypotension. 6. Type 2 diabetes mellitus * on glipizide and onglyza (formulary here has Tradjenta, so patient is now on Tradjenta) * on ISS and lantus insulin 20IU qhs and 46IU qam * accuchecks ACHS * 7. Hyperlipidemia: stable. On statin 8. DVT prophylaxis: heparin SC This note was generated with Par8oation software. It may contain incorrect words, spelling, and punctuation that were not noted in checking the note before signing. Code Visit Inpatient E&M: 15711 Subs Hosp L3
[2017-12-13] MEDS: Heparin Injection (Vial) 5,000 UNIT/ML VIAL 5000 UNIT SC ×2 (15:02→21:51)
[2017-12-13 17:00] LABS: Bedside Glucose 94 mg/dL (70-110)
[2017-12-13] MEDS: Atorvastatin Calcium 40 MG Tablet PO (21:51)
[2017-12-13 22:16] LABS: Bedside Glucose 112 mg/dL (70-110)
[2017-12-14] VITALS (7 sets, daily range): BP systolic 144–189; BP diastolic 74–82; PULSE 68–80; RESP 18; TEMP 36.6–37.1; O2SAT 93–97
[2017-12-14] MEDS: 0.9% NaCl Peripheral Flush Adult/Peds IV (05:27)
[2017-12-14] MEDS: Heparin Injection (Vial) 5,000 UNIT/ML VIAL 5000 UNIT SC (05:27)
[2017-12-14] MEDS: 0.9% Normal Saline 1,000 ML 125 ML IV (06:53)
[2017-12-14 08:05] LABS: Bedside Glucose 74 mg/dL (70-110)
[2017-12-14 08:35] LABS: Absolute Lymphocyte Count 2.57 X10^3/ul (0.83-4.51); Absolute Neutrophil Count 6.1 X10^3/uL (2.0-7.7); Basophil# 0.09 X10^3/uL; Basophil% 0.9 % (0-1); Eosinophil# 0.14 X10^3/uL; Eosinophils% 1.5 % (0-5); Hematocrit 38.6 % (40-54); Hemoglobin 12.4 g/dl (13.0-16.5); Lymphocyte # 2.57 X10^3/ul (4.0); Lymphocyte % 26.7 % (19-41); Mean Corp Hgb Conc 32.1 g/gl (32-36); Mean Corpuscular Hgb 29.3 pg (27.0-32.0); Mean Corpuscular Volume 91.3 fL (80-94); Mean Platelet Vol. 9.3 fl (6.2-12.0); Monocyte# 0.67 X10^3/uL; Neutrophil # 6.13 X10^3/uL (2.7-7.7); Neutrophil % 63.8 % (47-70); Platelet Count 228 K/mm3 (150-450); RBC Distribution Width CV 15.2 % (11.6-14.6); RBC Distribution Width SD 50.7 fl (35.1-43.9); Red Blood Count 4.23 M/mm3 (4.6-6.2); White Blood Count 9.6 K/mm3 (4.4-11.0)
[2017-12-14 08:36] LABS: POSITIVE COUNT NO; POSITIVE DIFFERENTIAL NO; POSITIVE MORPHOLOGY NO
[2017-12-14 08:37] LABS: Anion Gap 8 (5-15); BUN 18 mg/dL (7-18); BUN/Creat Ratio 11.5 RATIO (10-20); Calcium,Total 8.5 mg/dL (8.5-10.1); Chloride 113 mmol/L (98-107); Creatinine, Serum 1.56 mg/dL (0.70-1.30); EST Glomerular Filtration Rate 46 mL/min (>60); Est Glom Filt Rate - Afr Amer 55 mL/min (>60); Estimated Creatinine Clearance 44.39 ml/min; Glucose 66 mg/dL (74-106); Potassium 4.4 mmol/L (3.5-5.1); Sodium Level 145 mmol/L (136-145)
[2017-12-14] MEDS: glipiZIDE 5 MG Tablet PO (10:18)
[2017-12-14] MEDS: LINAGLIPTIN 5 MG TABLET PO (10:19)
[2017-12-14] MEDS: Pantoprazole Sodium 40 MG Tablet PO (10:19)
[2017-12-14] MEDS: Metoprolol Tartrate 25 MG Tablet 12.5 MG PO (10:19)
[2017-12-14] MEDS: Isosorbide Mononitrate 30 MG Tablet PO (10:19)
[2017-12-14] MEDS: Clopidogrel Bisulfate 75 MG Tablet PO (10:19)
--- NOTE | 2017-12-14 10:42 | PCM.PN.HOSP ---
Subjective: Patient is an 82-year-old male with a past medical history of hyperlipidemia, CKD stage III, type 2 diabetes, hypertension, and CAD s/p CABG. Patient was admitted via the ED on 12/12/17 from his PCP's office o/a of low blood pressure. He also complained of nausea and vomiting. for 3 days prior to presentation. Emesis was nonbilious and nonbloody. BP in [facility] ED was 53/59, which improved with administration of IVF. He is being managed for [place]-on-CKD , hypotension and lactic acidosis likely due to decreased intake and vomiting. She is seen and examined. He feels well and wants to go home. He has no complaints and is any fever or chills, any cough or chest pain, any abdominal pain, any diarrhea vomiting. Review of systems otherwise negative. Vitals/I&O's: Vital Signs Temp Pulse Resp BP Pulse Ox 98.2 F 68 18 189/82 H 97 12/14/17 09:31 12/14/17 10:19 12/14/17 09:31 12/14/17 09:31 12/14/17 09:31 Oxygen Flow Rate (L/min) 1 Oxygen Delivery Method Room Air Weight: 245 lb 5.992 oz Body Mass Index (BMI) 30.7 Intake and Output for Last 24 Hours 12/12/17 12/13/17 12/14/17 23:59 23:59 23:59 Intake Total 800 / 800 4695 / 4695 1673 / 1673 Output Total 1350 / 1350 Balance 800 / 800 3345 / 3345 1673 / 1673 General: Alert, Oriented x3, Cooperative HEENT: Atraumatic, PERRLA, EOMI, Normocephalic Oral: Moist Mucosa Neck: Supple, No JVD, Negative Carotid Bruits Lungs: Clear to auscultation, Normal air movement, No rhonchi, No wheeze, No rales Cardiovascular: Regular rate, Regular Rhythm, Normal S1, Normal S2, No murmurs Abdomen: Bowel Sounds Present, Soft, Non Tender, Non-Distended, No Hepato-splenomegaly Extremities: No clubbing, No cyanosis, No edema, Capillary Refill Less than 3 Seconds Skin: No rashes, No breakdown Musculoskeletal: No Tenderness to Palpation of Joints or Extremities Lymphatic: No Cervical, Supraclavicular, or Inguinal Adenopathy Neurological: Cranial nerves II-XII grossly intact Psych/Mental Status: Normal Affect, Alert and oriented to time, place, person, mood and affect Microbiology Past 72 Hours 12/13/17 00:35 Urine, Clean Catch Urine Culture - Final Mixed Gram Positive Organisms Laboratory Results 12/13/17 11:20: POC Glucose 114 H 12/13/17 16:48: POC Glucose 94 12/13/17 21:39: POC Glucose 112 H 12/14/17 07:56: WBC 9.6, RBC 4.23 L, Hgb 12.4 L, Hct 38.6 L, MCV 91.3, MCH 29.3, MCHC 32.1, RDW 15.2 H, RDW Differential 50.7 H, Plt Count 228, MPV 9.3, Immature Gran % (Auto) 0.100, Neut % (Auto) 63.8, Lymph % (Auto) 26.7, [place] % (Auto) 7.0, Eos % (Auto) 1.5, Baso % (Auto) 0.9, Absolute Neuts (auto) 6.1, Absolute Lymphs (auto) 2.57, Total Counted Not Reportable 12/14/17 07:56: Sodium 145, Potassium 4.4, Chloride 113 H, Carbon Dioxide 24.0, Anion Gap 8, BUN 18, Creatinine 1.56 H, Estim Creat Clear Calc 44.39, Est GFR (MDRD) Af Amer 55 L, Est GFR (MDRD) Non-Af 46 L, BUN/Creatinine Ratio 11.5, Glucose 66 L, Calcium 8.5 12/14/17 07:59: POC Glucose 74 Current Medications Acetaminophen (Tylenol) 500 mg PO Q6H PRN PRN PRN Reason: PAIN Atorvastatin Calcium (Lipitor) 40 mg PO QHS [facility] Last Admin: 12/13/17 21:51 Dose: 40 mg Clopidogrel Bisulfate (Plavix) 75 mg PO DAILY [facility] Last Admin: 12/14/17 10:19 Dose: 75 mg Glipizide (Glucotrol) 5 mg PO DAILYCM [facility] Last Admin: 12/14/17 10:18 Dose: 5 mg Heparin Sodium (Porcine) (Heparin Na) 5,000 unit SC Q8 [facility] Last Admin: 12/14/17 05:27 Dose: 5,000 u Sodium Chloride () 1,000 mls @ 125 mls/hr IV .Q8H [facility] Last Admin: 12/14/17 06:53 Dose: 125 mls/hr Sodium Chloride () 250 mls @ 15 mls/hr IV .[id number] PRN PRN Reason: SALINE FLUSH Insulin Glargine (Lantus (Bkc)) 20 units SC QHS [facility] Last Admin: 12/13/17 21:51 Dose: 20 u Insulin Glargine (Lantus (Bkc)) 46 units SC BREAKFAST [facility] Last Admin: 12/14/17 08:05 Dose: 46 u Insulin Human Lispro (Humalog Kwikpen ([facility])) 0 unit SC ACHS [facility] PRN Reason: Protocol Last Admin: 12/14/17 07:59 Dose: Not Given Isosorbide Mononitrate (Imdur) 30 mg PO DAILY [facility] Last Admin: 12/14/17 10:19 Dose: 30 mg Linagliptin (Tradjenta) 5 mg PO DAILY [facility] Last Admin: 12/14/17 10:19 Dose: 5 mg Magnesium Hydroxide (Milk Of Magnesia) 30 ml PO DAILY PRN PRN PRN Reason: Constipation Metoprolol Tartrate (Lopressor (Beta Vianey)) 12.5 mg PO BID [facility] Last Admin: 12/14/17 10:19 Dose: 12.5 mg Pantoprazole Sodium (Protonix) 40 mg PO DAILY [facility] Last Admin: 12/14/17 10:19 Dose: 40 mg Sodium Chloride () 5 - 30 ml IV UD PRN PRN Reason: SALINE FLUSH Last Admin: 12/14/17 05:27 Dose: 10 ml Medical Necessity - Tobacco Use Smoking Status: Current every day smoker Tobacco Use: Cigarettes Assessment/Plan 82-year-old male admitted from his PCPs office with complaint of nausea and vomiting was found to have a low blood pressure. Be managed for acute on chronic renal failure and lactic acidosis. 1. Hypotension due to decreased oral intake and diuretics Resolved. Blood pressure now running in 150s-180 systolic. Acidosis has resolved. Resume antihypertensives. 2. [place] on CKD, likely pre-renal Resolving. Creatinine was 2.43 on admission and is down to 1.56 today. Still on IV fluids. Will DC IV fluids and discharged today. Will resume antihypertensives. 3. lactic acidosis resolved 4. Hypernatremia: resolved. Na is 145 today. 5. CAD status post CABG and stents: Stable. EKG on admission showed no acute ST changes. On aspirin, Plavix, statins, nitrates . Beta blockers and lisinopril on hold on account of hypotension. will resume antihypertensives 6. Type 2 diabetes mellitus on glipizide and onglyza (formulary here has Tradjenta, so patient is now on Tradjenta) on ISS and lantus insulin 20IU qhs and 46IU qam accuchecks ACHS 7. Hyperlipidemia: stable. On statin 8. DVT prophylaxis: heparin SC Disposition: Discharge home today. To follow-up with PCP. This note was generated with LoLo dictation software. It may contain incorrect words, spelling, and punctuation that were not noted in checking the note before signing. Code Visit Inpatient E&M: 43820 Subs Hosp L3
--- NOTE | 2017-12-14 10:46 | PN_ITS ---
Subjective: Patient is an 82-year-old male with a past medical history of hyperlipidemia, CKD stage III, type 2 diabetes, hypertension, and CAD s/p CABG. Patient was admitted via the ED on 12/12/17 from his PCP's office o/a of low blood pressure. He also complained of nausea and vomiting. for 3 days prior to presentation. Emesis was nonbilious and nonbloody. BP in [facility] ED was 53/59, which improved with administration of IVF. He is being managed for [place]-CKD , hypotension and lactic acidosis likely due to decreased intake and vomiting. She is seen and examined. He feels well and wants to go home. He has no complaints and is any fever or chills, any cough or chest pain, any abdominal pain, any diarrhea vomiting. Review of systems otherwise negative. Vitals/I&O's: Vital Signs Temp Pulse Resp BP Pulse Ox 98.2 F 68 18 189/82 H 97 12/14/17 09:31 12/14/17 10:19 12/14/17 09:31 12/14/17 09:31 12/14/17 09:31 Oxygen Flow Rate (L/min) 1 Oxygen Delivery Method Room Air Weight: 245 lb 5.992 oz Body Mass Index (BMI) 30.7 Intake and Output for Last 24 Hours 12/12/17 12/13/17 12/14/17 23:59 23:59 23:59 Intake Total 800 / 800 4695 / 4695 1673 / 1673 Output Total 1350 / 1350 Balance 800 / 800 3345 / 3345 1673 / 1673 General: Alert, Oriented x3, Cooperative HEENT: Atraumatic, PERRLA, EOMI, Normocephalic Oral: Moist Mucosa Neck: Supple, No JVD, Negative Carotid Bruits Lungs: Clear to auscultation, Normal air movement, No rhonchi, No wheeze, No rales Cardiovascular: Regular rate, Regular Rhythm, Normal S1, Normal S2, No murmurs Abdomen: Bowel Sounds Present, Soft, Non Tender, Non-Distended, No Hepato- splenomegaly Extremities: No clubbing, No cyanosis, No edema, Capillary Refill Less than 3 Seconds Skin: No rashes, No breakdown Musculoskeletal: No Tenderness to Palpation of Joints or Extremities Lymphatic: No Cervical, Supraclavicular, or Inguinal Adenopathy Neurological: Cranial nerves II-XII grossly intact Psych/Mental Status: Normal Affect, Alert and oriented to time, place, person, mood and affect Microbiology Past 72 Hours 12/13/17 00:35 Urine, Clean Catch Urine Culture - Final Mixed Gram Positive Organisms Laboratory Results 12/13/17 11:20: POC Glucose 114 H 12/13/17 16:48: POC Glucose 94 12/13/17 21:39: POC Glucose 112 H 12/14/17 07:56: WBC 9.6, RBC 4.23 L, Hgb 12.4 L, Hct 38.6 L, MCV 91.3, MCH 29.3 , MCHC 32.1, RDW 15.2 H, RDW Differential 50.7 H, Plt Count 228, MPV 9.3, Immature Gran % (Auto) 0.100, Neut % (Auto) 63.8, Lymph % (Auto) 26.7, [place] % ( Auto) 7.0, Eos % (Auto) 1.5, Baso % (Auto) 0.9, Absolute Neuts (auto) 6.1, Absolute Lymphs (auto) 2.57, Total Counted Not Reportable 12/14/17 07:56: Sodium 145, Potassium 4.4, Chloride 113 H, Carbon Dioxide 24.0, Anion Gap 8, BUN 18, Creatinine 1.56 H, Estim Creat Clear Calc 44.39, Est GFR ( MDRD) Af Amer 55 L, Est GFR (MDRD) Non-Af 46 L, BUN/Creatinine Ratio 11.5, Glucose 66 L, Calcium 8.5 12/14/17 07:59: POC Glucose 74 Current Medications Acetaminophen (Tylenol) 500 mg PO Q6H PRN PRN PRN Reason: PAIN Atorvastatin Calcium (Lipitor) 40 mg PO QHS [facility] Last Admin: 12/13/17 21:51 Dose: 40 mg Clopidogrel Bisulfate (Plavix) 75 mg PO DAILY [facility] Last Admin: 12/14/17 10:19 Dose: 75 mg Glipizide (Glucotrol) 5 mg PO DAILYCM [facility] Last Admin: 12/14/17 10:18 Dose: 5 mg Heparin Sodium (Porcine) (Heparin Na) 5,000 unit SC Q8 [facility] Last Admin: 12/14/17 05:27 Dose: 5,000 u Sodium Chloride () 1,000 mls @ 125 mls/hr IV .Q8H [facility] Last Admin: 12/14/17 06:53 Dose: 125 mls/hr Sodium Chloride () 250 mls @ 15 mls/hr IV .[id number] PRN PRN Reason: SALINE FLUSH Insulin Glargine (Lantus (Bkc)) 20 units SC QHS [facility] Last Admin: 12/13/17 21:51 Dose: 20 u Insulin Glargine (Lantus (Bkc)) 46 units SC BREAKFAST [facility] Last Admin: 12/14/17 08:05 Dose: 46 u Insulin Human Lispro (Humalog Kwikpen ([facility])) 0 unit SC ACHS [facility] PRN Reason: Protocol Last Admin: 12/14/17 07:59 Dose: Not Given Isosorbide Mononitrate (Imdur) 30 mg PO DAILY [facility] Last Admin: 12/14/17 10:19 Dose: 30 mg Linagliptin (Tradjenta) 5 mg PO DAILY [facility] Last Admin: 12/14/17 10:19 Dose: 5 mg Magnesium Hydroxide (Milk Of Magnesia) 30 ml PO DAILY PRN PRN PRN Reason: Constipation Metoprolol Tartrate (Lopressor (Beta Vianey)) 12.5 mg PO BID [facility] Last Admin: 12/14/17 10:19 Dose: 12.5 mg Pantoprazole Sodium (Protonix) 40 mg PO DAILY [facility] Last Admin: 12/14/17 10:19 Dose: 40 mg Sodium Chloride () 5 - 30 ml IV UD PRN PRN Reason: SALINE FLUSH Last Admin: 12/14/17 05:27 Dose: 10 ml Medical Necessity - Tobacco Use Smoking Status: Current every day smoker Tobacco Use: Cigarettes Assessment/Plan 82-year-old male admitted from his PCPs office with complaint of nausea and vomiting was found to have a low blood pressure. Be managed for acute on chronic renal failure and lactic acidosis. 1. Hypotension due to decreased oral intake and diuretics * Resolved. Blood pressure now running in 150s-180 systolic. * Acidosis has resolved. Resume antihypertensives. * * 2. [place] on CKD, likely pre-renal * Resolving. Creatinine was 2.43 on admission and is down to 1.56 today. * Still on IV fluids. Will DC IV fluids and discharged today. Will resume antihypertensives. * * 3. lactic acidosis * resolved * 4. Hypernatremia: resolved. Na is 145 today. 5. CAD status post CABG and stents: * Stable. * EKG on admission showed no acute ST changes. * On aspirin, Plavix, statins, nitrates . Beta blockers and lisinopril on hold on account of hypotension. * will resume antihypertensives 6. Type 2 diabetes mellitus * on glipizide and onglyza (formulary here has Tradjenta, so patient is now on Tradjenta) * on ISS and lantus insulin 20IU qhs and 46IU qam * accuchecks ACHS * 7. Hyperlipidemia: stable. On statin 8. DVT prophylaxis: heparin SC Disposition: Discharge home today. To follow-up with PCP. This note was generated with [employer]ir dictation software. It may contain incorrect words, spelling, and punctuation that were not noted in checking the note before signing. Code Visit Inpatient E&M: 01995 Subs Hosp L3
--- NOTE | 2017-12-14 10:52 | PCM.DC ---
- Discharge Diagnoses Current Active Problems: hypotension, [place] on CKD You will use the following diet at home:: Calorie/Carbohydrate Controlled (specify 1200, 1400, etc) Your food should be the consistency of: Regular Your liquids should be the consistency of: Regular/Thin Discharge Activity: Return to Normal Activity May resume sexual activity in: No Restrictions Weight Bearing Status: Weight bearing as tolerated Call your doctor if you observe: Inability to urinate, Dizziness Allergies/Adverse Reactions: Allergies venom-honey bee [bee venom (honey bee)] Allergy (Verified 12/12/17 14:39) Hives Medications to take at Discharge Atorvastatin Calcium [Lipitor] 40 mg PO QHS 02/17/16 Clopidogrel Bisulfate [Plavix] 75 mg PO DAILY 02/17/16 Furosemide [Lasix] 20 mg PO QODAY 02/17/16 Isosorbide Mononitrate [Isosorbide Mononitrate ER] 30 mg PO DAILY 02/17/16 Metoprolol Tartrate [Lopressor (beta kyaw)] 12.5 mg PO BID 02/17/16 Omeprazole [Prilosec] 40 mg PO DAILY 02/17/16 Potassium Chloride [Klor-Con 10] 10 meq PO DAILY 02/17/16 Acetaminophen [Tylenol] 500 mg PO Q6H PRN PRN 12/12/17 Glipizide 5 mg PO DAILY 12/12/17 Glucosam/Chond/MSM/[place]/Hyal [Glucosamine-Chondr Complex Tab] 1 each PO DAILY 12/12/17 Insulin Glargine,Hum.rec.anlog [Lantus] 20 unit SQ QHS 12/12/17 Insulin Glargine,Hum.rec.anlog [Lantus] 46 unit SQ BREAKFAST 12/12/17 Lisinopril [Zestril] 2.5 mg PO QHS 12/12/17 Menthol [Biofreeze] 1 applic TP PRN PRN 12/12/17 Multivitamin [Daily Multiple Vitamin] 1 each PO DAILY 12/12/17 [place] Xl 1 tab PO BID 12/12/17 Saxagliptin HCl [Onglyza] 2.5 mg PO DAILY 12/12/17 Stress Care 2 cap PO DAILY 12/12/17 Primary Care Physician: Gomez Mcnally MD [Primary Care Provider] - Please follow up with your Primary Care Physician in: one week Test Results: Proposed Discharge Date: 12/14/17
--- NOTE | 2017-12-14 10:56 | DCINST_ITS ---
- Discharge Diagnoses Current Active Problems: hypotension, [place] on CKD You will use the following diet at home:: Calorie/Carbohydrate Controlled ( specify 1200, 1400, etc) Your food should be the consistency of: Regular Your liquids should be the consistency of: Regular/Thin Discharge Activity: Return to Normal Activity May resume sexual activity in: No Restrictions Weight Bearing Status: Weight bearing as tolerated Call your doctor if you observe: Inability to urinate, Dizziness Allergies/Adverse Reactions: Allergies venom-honey bee [bee venom (honey bee)] Allergy (Verified 12/12/17 14:39) Hives Medications to take at Discharge Atorvastatin Calcium [Lipitor] 40 mg PO QHS 02/17/16 Clopidogrel Bisulfate [Plavix] 75 mg PO DAILY 02/17/16 Furosemide [Lasix] 20 mg PO QODAY 02/17/16 Isosorbide Mononitrate [Isosorbide Mononitrate ER] 30 mg PO DAILY 02/17/16 Metoprolol Tartrate [Lopressor (beta kyaw)] 12.5 mg PO BID 02/17/16 Omeprazole [Prilosec] 40 mg PO DAILY 02/17/16 Potassium Chloride [Klor-Con 10] 10 meq PO DAILY 02/17/16 Acetaminophen [Tylenol] 500 mg PO Q6H PRN PRN 12/12/17 Glipizide 5 mg PO DAILY 12/12/17 Glucosam/Chond/MSM/[place]/Hyal [Glucosamine-Chondr Complex Tab] 1 each PO DAILY 12/12/17 Insulin Glargine,Hum.rec.anlog [Lantus] 20 unit SQ QHS 12/12/17 Insulin Glargine,Hum.rec.anlog [Lantus] 46 unit SQ BREAKFAST 12/12/17 Lisinopril [Zestril] 2.5 mg PO QHS 12/12/17 Menthol [Biofreeze] 1 applic TP PRN PRN 12/12/17 Multivitamin [Daily Multiple Vitamin] 1 each PO DAILY 12/12/17 [place] Xl 1 tab PO BID 12/12/17 Saxagliptin HCl [Onglyza] 2.5 mg PO DAILY 12/12/17 Stress Care 2 cap PO DAILY 12/12/17 Primary Care Physician: Gomez Mcnally MD [Primary Care Provider] - Please follow up with your Primary Care Physician in: one week Test Results: Proposed Discharge Date: 12/14/17
--- NOTE | 2017-12-14 10:57 | DS.PCM_ITS ---
Discharge Date and Diagnosis Date of Admission: 12/12/17 Date of Discharge: 12/14/17 - Primary Discharge Diagnosis hypotension lactic acidosis MODESTO on CKD - Secondary Discharge Diagnosis Chronic Problems Hyperlipidemia (Chronic) Stage III chronic kidney disease (Chronic) Type 2 diabetes mellitus (Chronic) Hypertension (Chronic) Status post coronary artery bypass graft (Chronic) Coronary artery disease (Chronic) Hospital Course and Treatment Imaging Results: Diagnostic Data Chest X-Ray 12/12/17 14:51 IMPRESSION: Since prior study, there has been progressive pleural-parenchymal changes in the left hemithorax. This may represent either progressive fibrosis versus fibrosis and superimposed left basilar atelectasis and/or infiltrate. Radiographic follow-up is recommended. Electronically Signed: Rikki Hastings MD at 15:18 EDT Tel [phone], Service support , Laboratory Tests 12/12/17 12/12/17 12/12/17 14:41 14:41 14:41 WBC 14.6 H RBC 5.02 Hgb 14.7 Hct 45.3 MCV 90.2 MCH 29.3 MCHC 32.5 RDW 15.2 H RDW Differential 50.0 H Plt Count 285 MPV 9.6 Immature Gran % (Auto) 0.100 Neut % (Auto) 78.4 H Lymph % (Auto) 15.1 L Hughes % (Auto) 5.8 Eos % (Auto) 0.1 Baso % (Auto) 0.5 Absolute Neuts (auto) 11.5 H Absolute Lymphs (auto) 2.21 Total Counted Not Reportable PT 13.6 INR 1.0 APTT 25.7 Sodium 141 Potassium 4.6 Chloride 107 Carbon Dioxide 25.0 Anion Gap 9 BUN 22 H Creatinine 2.43 H Estim Creat Clear Calc 28.50 Est GFR (MDRD) Af Amer 33 L Est GFR (MDRD) Non-Af 27 L BUN/Creatinine Ratio 9.1 L Glucose 128 H Lactic Acid Calcium 9.1 Total Bilirubin 0.60 AST 12 L ALT 13 L Alkaline Phosphatase 111 Total Protein 7.8 Albumin 3.8 Globulin 4.0 Albumin/Globulin Ratio 1.0 Urine Color Urine Clarity Urine pH Ur Specific [place] Urine Protein Urine Glucose (UA) Urine Ketones Urine Occult Blood Urine Nitrite Urine Bilirubin Urine Urobilinogen Ur Leukocyte Esterase Urine RBC Urine WBC Ur Squamous Epith Cells Urine Bacteria Urine Mucus POC Glucose 12/12/17 12/12/17 12/12/17 15:02 15:09 18:47 WBC RBC Hgb Hct MCV MCH MCHC RDW RDW Differential Plt Count MPV Immature Gran % (Auto) Neut % (Auto) Lymph % (Auto) Hughes % (Auto) Eos % (Auto) Baso % (Auto) Absolute Neuts (auto) Absolute Lymphs (auto) Total Counted PT INR APTT Sodium Potassium Chloride Carbon Dioxide Anion Gap BUN Creatinine Estim Creat Clear Calc Est GFR (MDRD) Af Amer Est GFR (MDRD) Non-Af BUN/Creatinine Ratio Glucose Lactic Acid 2.2 H Cancelled Calcium Total Bilirubin AST ALT Alkaline Phosphatase Total Protein Albumin Globulin Albumin/Globulin Ratio Urine Color Urine Clarity Urine pH Ur Specific [place] Urine Protein Urine Glucose (UA) Urine Ketones Urine Occult Blood Urine Nitrite Urine Bilirubin Urine Urobilinogen Ur Leukocyte Esterase Urine RBC Urine WBC Ur Squamous Epith Cells Urine Bacteria Urine Mucus POC Glucose 122 H 12/12/17 12/12/17 12/13/17 18:47 22:37 00:35 WBC RBC Hgb Hct MCV MCH MCHC RDW RDW Differential Plt Count MPV Immature Gran % (Auto) Neut % (Auto) Lymph % (Auto) Hughes % (Auto) Eos % (Auto) Baso % (Auto) Absolute Neuts (auto) Absolute Lymphs (auto) Total Counted PT INR APTT Sodium Potassium Chloride Carbon Dioxide Anion Gap BUN Creatinine Estim Creat Clear Calc Est GFR (MDRD) Af Amer Est GFR (MDRD) Non-Af BUN/Creatinine Ratio Glucose Lactic Acid 1.1 Calcium Total Bilirubin AST ALT Alkaline Phosphatase Total Protein Albumin Globulin Albumin/Globulin Ratio Urine Color Yellow Urine Clarity Clear Urine pH 6.0 Ur Specific [place] 1.010 Urine Protein 30 H Urine Glucose (UA) Normal Urine Ketones Negative Urine Occult Blood Negative Urine Nitrite Negative Urine Bilirubin Negative Urine Urobilinogen Normal Ur Leukocyte Esterase Negative Urine RBC 0 SEEN Urine WBC 0 SEEN Ur Squamous Epith Cells 0 SEEN Urine Bacteria 0 SEEN Urine Mucus 0 SEEN POC Glucose 154 H 12/13/17 12/13/17 12/13/17 05:24 05:24 06:42 WBC 12.3 H RBC 4.36 L Hgb 12.4 L Hct 40.3 MCV 92.4 MCH 28.4 MCHC 30.8 L RDW 15.3 H RDW Differential 52.2 H Plt Count 239 MPV 9.5 Immature Gran % (Auto) 0.200 Neut % (Auto) 62.3 Lymph % (Auto) 26.1 Hughes % (Auto) 8.6 Eos % (Auto) 1.9 Baso % (Auto) 0.9 Absolute Neuts (auto) 7.7 Absolute Lymphs (auto) 3.21 Total Counted Not Reportable PT INR APTT Sodium 146 H Potassium 4.4 Chloride 113 H Carbon Dioxide 26.0 Anion Gap 7 BUN 22 H Creatinine 1.82 H Estim Creat Clear Calc 38.05 Est GFR (MDRD) Af Amer 46 L Est GFR (MDRD) Non-Af 38 L BUN/Creatinine Ratio 12.1 Glucose 76 Lactic Acid Calcium 8.2 L Total Bilirubin AST ALT Alkaline Phosphatase Total Protein Albumin Globulin Albumin/Globulin Ratio Urine Color Urine Clarity Urine pH Ur Specific [place] Urine Protein Urine Glucose (UA) Urine Ketones Urine Occult Blood Urine Nitrite Urine Bilirubin Urine Urobilinogen Ur Leukocyte Esterase Urine RBC Urine WBC Ur Squamous Epith Cells Urine Bacteria Urine Mucus POC Glucose 66 L 12/13/17 12/13/17 12/13/17 06:59 11:20 16:48 WBC RBC Hgb Hct MCV MCH MCHC RDW RDW Differential Plt Count MPV Immature Gran % (Auto) Neut % (Auto) Lymph % (Auto) Hughes % (Auto) Eos % (Auto) Baso % (Auto) Absolute Neuts (auto) Absolute Lymphs (auto) Total Counted PT INR APTT Sodium Potassium Chloride Carbon Dioxide Anion Gap BUN Creatinine Estim Creat Clear Calc Est GFR (MDRD) Af Amer Est GFR (MDRD) Non-Af BUN/Creatinine Ratio Glucose Lactic Acid Calcium Total Bilirubin AST ALT Alkaline Phosphatase Total Protein Albumin Globulin Albumin/Globulin Ratio Urine Color Urine Clarity Urine pH Ur Specific [place] Urine Protein Urine Glucose (UA) Urine Ketones Urine Occult Blood Urine Nitrite Urine Bilirubin Urine Urobilinogen Ur Leukocyte Esterase Urine RBC Urine WBC Ur Squamous Epith Cells Urine Bacteria Urine Mucus POC Glucose 71 114 H 94 12/13/17 12/14/17 12/14/17 21:39 07:56 07:56 WBC 9.6 RBC 4.23 L Hgb 12.4 L Hct 38.6 L MCV 91.3 MCH 29.3 MCHC 32.1 RDW 15.2 H RDW Differential 50.7 H Plt Count 228 MPV 9.3 Immature Gran % (Auto) 0.100 Neut % (Auto) 63.8 Lymph % (Auto) 26.7 Hughes % (Auto) 7.0 Eos % (Auto) 1.5 Baso % (Auto) 0.9 Absolute Neuts (auto) 6.1 Absolute Lymphs (auto) 2.57 Total Counted Not Reportable PT INR APTT Sodium 145 Potassium 4.4 Chloride 113 H Carbon Dioxide 24.0 Anion Gap 8 BUN 18 Creatinine 1.56 H Estim Creat Clear Calc 44.39 Est GFR (MDRD) Af Amer 55 L Est GFR (MDRD) Non-Af 46 L BUN/Creatinine Ratio 11.5 Glucose 66 L Lactic Acid Calcium 8.5 Total Bilirubin AST ALT Alkaline Phosphatase Total Protein Albumin Globulin Albumin/Globulin Ratio Urine Color Urine Clarity Urine pH Ur Specific [place] Urine Protein Urine Glucose (UA) Urine Ketones Urine Occult Blood Urine Nitrite Urine Bilirubin Urine Urobilinogen Ur Leukocyte Esterase Urine RBC Urine WBC Ur Squamous Epith Cells Urine Bacteria Urine Mucus POC Glucose 112 H 12/14/17 07:59 WBC RBC Hgb Hct MCV MCH MCHC RDW RDW Differential Plt Count MPV Immature Gran % (Auto) Neut % (Auto) Lymph % (Auto) Hughes % (Auto) Eos % (Auto) Baso % (Auto) Absolute Neuts (auto) Absolute Lymphs (auto) Total Counted PT INR APTT Sodium Potassium Chloride Carbon Dioxide Anion Gap BUN Creatinine Estim Creat Clear Calc Est GFR (MDRD) Af Amer Est GFR (MDRD) Non-Af BUN/Creatinine Ratio Glucose Lactic Acid Calcium Total Bilirubin AST ALT Alkaline Phosphatase Total Protein Albumin Globulin Albumin/Globulin Ratio Urine Color Urine Clarity Urine pH Ur Specific [place] Urine Protein Urine Glucose (UA) Urine Ketones Urine Occult Blood Urine Nitrite Urine Bilirubin Urine Urobilinogen Ur Leukocyte Esterase Urine RBC Urine WBC Ur Squamous Epith Cells Urine Bacteria Urine Mucus POC Glucose 74 Operations: None Procedures: None Summary of Care Provided: The patient is an 82 year old M with past medical history of hyperlipidemia, CKD III, type 2 diabetes, hypertension and CAD s/p CABG. was admitted via the ED on 12/11/17 after being referred by his PCP because of low blood pressure. He also had complaints of nausea and vomiting for 3-4 days prior to admission. He had no associated diarrhea. During this period of vomiting, still been taking his blood pressure medications and diuretics. On admission in the ED his blood pressure was found to be very low at 53/49 and went up to 92/51 after resuscitation with IV fluids. Blood work was only significant for creatinine of about 2.3 with his baseline being around 1.61.8. Lactic acid was also elevated at 2.2 and chest x-ray showed only made and lower zone reticular shadows which could be due to fibrosis and no significant change from previous x -rays. EKG showed only sinus rhythm with first-degree AV block and a right bundle branch block. He was admitted and managed for acute on chronic kidney injury, due to hypotension and also lactic acidosis due to decreased intake and vomiting. Creatinine trended down and lactic acidosis resolved with IV fluid administration. Blood pressure medications were held during admission. Kidney injury also resolved with IV fluid administration, and Cr at time of discharge was 1.56. Patient remained stable. Home medications were reviewed and reconciled and blood pressure medications were resumed. He was discharged home on 12/14/2017 to follow-up with his primary care doctor in 1 week. Discharge Diet: 2000 mg Sodium Diet Discharge Activity: Return to Normal Activity May resume sexual activity in: No Restrictions Weight Bearing Status: Weight bearing as tolerated Call your doctor if you observe: Inability to urinate, Dizziness Home Medications: Medications to take at Discharge Atorvastatin Calcium [Lipitor] 40 mg PO QHS 02/17/16 Clopidogrel Bisulfate [Plavix] 75 mg PO DAILY 02/17/16 Furosemide [Lasix] 20 mg PO QODAY 02/17/16 Isosorbide Mononitrate [Isosorbide Mononitrate ER] 30 mg PO DAILY 02/17/16 Metoprolol Tartrate [Lopressor (beta kyaw)] 12.5 mg PO BID 02/17/16 Omeprazole [Prilosec] 40 mg PO DAILY 02/17/16 Potassium Chloride [Klor-Con 10] 10 meq PO DAILY 02/17/16 Acetaminophen [Tylenol] 500 mg PO Q6H PRN PRN 12/12/17 Glipizide 5 mg PO DAILY 12/12/17 Glucosam/Chond/MSM/[place]/Hyal [Glucosamine-Chondr Complex Tab] 1 each PO DAILY 12/12/17 Insulin Glargine,Hum.rec.anlog [Lantus] 20 unit SQ QHS 12/12/17 Insulin Glargine,Hum.rec.anlog [Lantus] 46 unit SQ BREAKFAST 12/12/17 Lisinopril [Zestril] 2.5 mg PO QHS 12/12/17 Menthol [Biofreeze] 1 applic TP PRN PRN 12/12/17 Multivitamin [Daily Multiple Vitamin] 1 each PO DAILY 12/12/17 Elsie Xl 1 tab PO BID 12/12/17 Saxagliptin HCl [Onglyza] 2.5 mg PO DAILY 12/12/17 Stress Care 2 cap PO DAILY 12/12/17 Primary Care Physician: Gomez Mcnally MD [Primary Care Provider] - Please follow up with your Primary Care Physician in: one week Disposition: Home Minutes spent on discharge:: 35 Patient Condition:: Good Medical Necessity - Tobacco Use Smoking Status: Current every day smoker Tobacco Use: Cigarettes Meaningful Use Info Meaningful Use Diagnoses (Choose all that apply): None applicable Code Visit Inpatient E&M: 98945 Disch Hosp
--- NOTE | 2017-12-14 11:35 | CASEMGMT ---
RN CM Face to Face with patient for initial transition planning/care coordination assessment. RN CM introduced self and role at [facility]. Patient sitting on edge of bed, alert and oriented. Patient willing to participate in assessment and is able to answer all questions appropriately. Care providers, pharmacy, and demographics verified. Patient states that he lives in 1 story house with 4 step with railing to enter home. Patient states he is independent and drives self. Patient states that he has a shower chair, cane, and walker at home. Patient wishes to discharge home, denies need for home health at this time. Patient states he has no further needs or concerns at this time. CM to follow for discharge planning needs that may arise. Disposition Plan: Patient to discharge home with follow-up plans in place.
== END 2017-12-14 11:38 | disposition home or self-care (01) | DRG 683 ==
LOC: ED 16:00 → MS3 17:06
PROVIDERS: Admitting Provider Hospitalist; Emergency Provider Emergency Medicine; Visit Provider Student in an Organized Health Care Education/Training Program
DX: N17.9 Acute kidney failure, unspecified (principal); E87.2 Acidosis; E87.0 Hyperosmolality and hypernatremia; F17.210 Nicotine dependence, cigarettes, uncomplicated; N18.3 Chronic kidney disease, stage 3 (moderate); Z95.1 Presence of aortocoronary bypass graft; Z95.5 Presence of coronary angioplasty implant and graft; I25.10 Atherosclerotic heart disease of native coronary artery without angina pectoris; E11.22 Type 2 diabetes mellitus with diabetic chronic kidney disease; Z79.84 Long term (current) use of oral hypoglycemic drugs; E78.5 Hyperlipidemia, unspecified; I12.9 Hypertensive chronic kidney disease with stage 1 through stage 4 chronic kidney disease, or unspecified chronic kidney disease; Z79.899 Other long term (current) drug therapy; I95.9 Hypotension, unspecified
CPT/HCPCS: 36415; 71045; 80048; 80053; 81001; 82962; 83605; 85025; 85610; 85730; 87040; 87086; 87088; 93005; 97802; 99283; J7030; A4216; J2405

== ENCOUNTER 2020-12-09 21:32 | Inpatient (IN) | payer MEDICARE, BC, SELFPAY ==
[2020-12-09 21:33] VITALS: BP 120/85; PULSE 76; RESP 16; TEMP 37.2; O2SAT 96; BMI 26.8
[2020-12-09 21:38] VITALS: BP 120/85; PULSE 76; RESP 16; TEMP 37.2; O2SAT 96
--- NOTE | 2020-12-09 21:47 | EKG12_ITS ---
Test Reason : CONFUSION Blood Pressure : / mmHG Vent. Rate : 086 BPM Atrial Rate : 086 BPM P-R Int : 290 ms QRS Dur : 140 ms QT Int : 404 ms P-R-T Axes : 089 105 016 degrees QTc Int : 483 ms Sinus rhythm with 1st degree A-V block with frequent Premature ventricular complexes Right bundle branch block Abnormal ECG Confirmed by ALICIA JENSEN, SANDRA ([id number]), image editor LEONORA COLVIN ([id number]) on 12/11/2020 1:11:20 PM Referred By: LONG Confirmed By:SANDRA VARGAS MD
--- NOTE | 2020-12-09 21:48 | EX.ED.DYSGE1 ---
HPI History of Present Illness Chief Complaint: Confusion Narrative Narrative: Patient arrives from home with confusion. He lives at home by himself his daughter went to talk to him this morning and she noticed that he was confused, patient does not remember any of those events. She called for a well check and patient was brought to the ED via ambulance. Patient knows his name but does not know where he is he does not know the year and cannot give me reasonable history or review of systems. [facility] Medical History (Updated 12/09/20 @ 23:[address] Josh Killian MD) Chronic pain COPD (chronic obstructive pulmonary disease) Dementia Diabetes Hypercholesteremia Irregular heart beat Kidney disease Home Medications Omeprazole [Prilosec] 40 mg PO DAILY 02/17/16 [History Last Taken Unknown] atorvastatin 40 mg PO QHS 02/17/16 [History Last Taken 12/11/17] clopidogrel 75 mg PO DAILY 02/17/16 [History Last Taken 12/12/17] furosemide 20 mg PO DAILY 02/17/16 [History Last Taken 12/12/17] isosorbide mononitrate 30 mg PO DAILY 02/17/16 [History Last Taken Unknown] metoprolol tartrate 25 mg PO BID 02/17/16 [History Last Taken Unknown] potassium chloride [Klor-Con 10] 10 meq PO DAILY 02/17/16 [History Last Taken Unknown] acetaminophen 500 mg PO Q6H PRN PRN 12/12/17 [History Last Taken Unknown] glipizide 5 mg PO BID 12/12/17 [History Last Taken 12/12/17] insulin glargine [Lantus U-100 Insulin] 20 unit SQ QHS 12/12/17 [History Last Taken 12/11/17] insulin glargine [Lantus U-100 Insulin] 46 unit SQ BREAKFAST 12/12/17 [History Last Taken 12/12/17] lisinopril [Zestril] 2.5 mg PO QHS 12/12/17 [History Last Taken Unknown] menthol [Biofreeze (menthol)] 1 applic TP PRN PRN 12/12/17 [History Last Taken Unknown] alogliptin 12.5 mg PO DAILY 12/09/20 [History Last Taken Unknown] cholecalciferol (vitamin D3) [Vitamin D3] 125 mcg PO DAILY 12/09/20 [History Last Taken Unknown] gabapentin 100 mg PO LUNCH 12/09/20 [History Last Taken Unknown] gabapentin 200 mg PO BID 12/09/20 [History Last Taken Unknown] Allergy/AdvReac Type Severity Reaction Status Date / Time venom-honey bee Allergy Hives Verified 12/12/17 14:39 [bee venom (honey bee)] Surgical History (Updated 12/09/20 @ 22:30 by Bela Reina) Hx of CABG Social History Smoking Status: Current every day smoker tobacco type: cigarettes ROS ROS ED ROS Narrative Past medical history: Reviewed, includes coronary artery disease, hypertension, hypercholesterolemia, kidney disease, diabetes. Medications: Reviewed, he has a bottle of medication at the bedside Reviewed with the nurse. Social history: Noncontributory Review of systems: Unable secondary to patient's confusion. EXAM Physical Exam Narrative Exam Narrative: Physical exam General: Patient appears chronically ill, he appears in slight distress Head: Normocephalic, Atraumatic Eyes: Conjunctiva not pale ENT: Dry mucous membranes Neck: Supple, Nontender, No lymphadenopathy Cardiovascular: Irregular rhythm, normal rate no obvious murmurs Respiratory: No distress, coarse bilateral breath sounds Abdomen: Soft, Nontender, Nondistended : Normal external genitalia however he does have a small decub ulcer with skin breakdown in the sacral region. Back: Nontender, Normal Inspection. Negative for: CVA tenderness Extremities: Nontender, No edema Skin: Normal color, No rash Neurological: Alert, oriented to person only but no focal deficits. Const Vital Signs: 12/09/20 21:33 12/09/20 21:38 12/09/20 22:00 Temperature 99.0 F 99.0 F 99.0 F Temperature Source Oral Oral Oral Pulse Rate 76 76 76 Respiratory Rate 16 16 16 Blood Pressure 120/85 H 120/85 H 120/85 H Blood Pressure Mean 96 96 96 Pulse Ox 96 96 96 Oxygen Delivery Method Room Air MDM MDM MDM Narrative Medical decision making narrative: Patient has MODESTO, otherwise his work-up is relatively unremarkable. I will admit him, he will likely need placement after IV fluids and hydration. Lab Data Labs: Laboratory Results - last 24 hr 12/09/20 12/09/20 12/09/20 21:50 21:50 21:50 WBC 12.6 H RBC 4.14 L Hgb 11.9 L Hct 37.9 L MCV 91.5 MCH 28.7 MCHC 31.4 L RDW Std Deviation 49.4 H RDW Coeff of Jael 14.7 H Plt Count 228 MPV 10.0 Immature Gran % (Auto) 0.600 Neut % (Auto) 70.2 H Lymph % (Auto) 18.0 L [place] % (Auto) 8.3 Eos % (Auto) 1.9 Baso % (Auto) 1.0 Absolute Neuts (auto) 8.9 H Absolute Lymphs (auto) 2.26 Nucleated RBC % 0 PT 14.1 INR 1.2 APTT 22.5 L Sodium 138 Potassium 4.4 Chloride 108 H Carbon Dioxide 21.0 Anion Gap 9 BUN 48 H Creatinine 2.97 H Estim Creat Clear Calc 22.13 Est GFR (MDRD) Af Amer 26 L Est GFR (MDRD) Non-Af 22 L BUN/Creatinine Ratio 16.2 Glucose 159 H Lactic Acid Calcium 8.2 L Total Bilirubin 0.40 AST 11 L ALT 9 L Alkaline Phosphatase 101 Total Protein 6.6 Albumin 3.0 L Globulin 3.6 Albumin/Globulin Ratio 0.8 L 12/09/20 21:50 WBC RBC Hgb Hct MCV MCH MCHC RDW Std Deviation RDW Coeff of Jael Plt Count MPV Immature Gran % (Auto) Neut % (Auto) Lymph % (Auto) [place] % (Auto) Eos % (Auto) Baso % (Auto) Absolute Neuts (auto) Absolute Lymphs (auto) Nucleated RBC % PT INR APTT Sodium Potassium Chloride Carbon Dioxide Anion Gap BUN Creatinine Estim Creat Clear Calc Est GFR (MDRD) Af Amer Est GFR (MDRD) Non-Af BUN/Creatinine Ratio Glucose Lactic Acid 1.9 Calcium Total Bilirubin AST ALT Alkaline Phosphatase Total Protein Albumin Globulin Albumin/Globulin Ratio Radiography Diagnostic Testing: Radiology Impression Chest X-Ray 12/09/20 21:59 IMPRESSION: No acute findings in the chest. Stable scarring in the left lung. at 2230 Reported and signed by: Gurvinder Moy MD Electronically Signed: Gurvinder Moy MD at 22:29 EDT Tel , Service support , Brain CT 12/09/20 22:04 IMPRESSION: No acute intracranial abnormality. 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 Chronic involutional and ischemic changes of the brain. Electronically Signed: Oliver Lion MD at 22:36 EDT Tel , Service support , Discharge Plan Triage Chief Complaint: Confusion ED Provider: Josh Killian Dx/Rx/DC Orders Clinical Impression: Acute confusion, MODESTO (acute kidney injury) Prescriptions: No Action atorvastatin 40 MG tablet 40 mg PO QHS RF: 0 isosorbide mononitrate 30 MG tablet extended release 24 hr 30 mg PO DAILY RF: 0 potassium chloride [Klor-Con 10] 10 MEQ tablet extended release 10 meq PO DAILY RF: 0 clopidogrel 75 MG tablet 75 mg PO DAILY RF: 0 furosemide 20 MG tablet 20 mg PO DAILY RF: 0 metoprolol tartrate 25 MG tablet 25 mg PO BID RF: 0 Omeprazole [Prilosec] 20 MG capsule 40 mg PO DAILY RF: 0 lisinopril [Zestril] 5 MG tablet 2.5 mg PO QHS RF: 0 glipizide 5 MG tablet 5 mg PO BID RF: 0 insulin glargine [Lantus U-100 Insulin] 100 UNIT/ML Ml 46 unit SQ BREAKFAST RF: 0 insulin glargine [Lantus U-100 Insulin] 100 UNIT/ML Ml 20 unit SQ QHS RF: 0 acetaminophen 500 MG tablet 500 mg PO Q6H PRN PRN (Reason: Pain) RF: 0 menthol [Biofreeze (menthol)] 1 APPLIC Tube 1 applic TP PRN PRN (Reason: Pain) RF: 0 gabapentin 100 mg Capsule 200 mg PO BID RF: 0 gabapentin 100 mg Capsule 100 mg PO LUNCH RF: 0 cholecalciferol (vitamin D3) [Vitamin D3] 125 mcg (5,000 unit) Tablet 125 mcg PO DAILY RF: 0 alogliptin 12.5 mg Tablet 12.5 mg PO DAILY RF: 0 [facility] [[facility] - Disposition Disposition: Acute Care Hospital [facility]
--- NOTE | 2020-12-09 21:50 | ED.RN ---
spoke with daughter, Caridad INTERIANO on phone
--- NOTE | 2020-12-09 21:59 | RAD_ITS ---
EXAM: XR CHEST, 1 VIEW : 1935 CLINICAL INDICATION: weakness TECHNIQUE: Frontal view of the chest. This report was created using [employer] report generation technology. COMPARISON: 12/12/17 FINDINGS: LUNGS AND PLEURAL SPACES: Stable scarring in the lateral margin of the left lung. No pneumothorax. No effusion. HEART: Unremarkable. Cardiac silhouette not enlarged. MEDIASTINUM: Surgical changes of the mediastinum. BONES/JOINTS: Unremarkable. SOFT TISSUES: Unremarkable. RAD/Chest 1 View (Portable) IMPRESSION: No acute findings in the chest. Stable scarring in the left lung. at 2230 Reported and signed by: Gurvinder Moy MD Electronically Signed: Gurvinder Moy MD at 22:29 EDT Tel , Service support ,
[2020-12-09 22:00] VITALS: BP 120/85; PULSE 76; RESP 16; TEMP 37.2; O2SAT 96
--- NOTE | 2020-12-09 22:04 | CT_ITS ---
EXAMINATION : Head CT w/out contrast HISTORY : encephalopathy COMPARISON : None. TECHNIQUE : Multiple contiguous axial images were obtained from the skull base to the vertex without intravenous contrast. A radiation dose optimization technique was used for this scan. FINDINGS : There is no evidence for acute intracranial hemorrhage, mass effect, or midline shift. There is no extra-axial fluid collection. There are periventricular white matter changes consistent with chronic microvascular ischemic disease. There is sulcal widening and ventricular enlargement consistent with cerebral atrophy. There is normal orourke-white differentiation, without CT evidence of acute ischemia or infarct. 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 The skull base and calvarium are unremarkable. The orbits are unremarkable. The paranasal sinuses are clear. The mastoid air cells are well-aerated. The soft tissues are unremarkable. CT/Brain/Head without Contrast IMPRESSION: No acute intracranial abnormality. 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 Chronic involutional and ischemic changes of the brain. Electronically Signed: Oliver Lion MD at 22:36 EDT Tel , Service support ,
[2020-12-09 22:13] LABS: Absolute Lymphocyte Count 2.26 X10^3/uL (0.83-4.51); Absolute Neutrophil Count 8.9 X10^3/uL (2.0-7.7); Basophil# 0.12 X10^3/uL; Eosinophil# 0.24 X10^3/uL; Eosinophils% 1.9 % (0-5); Hematocrit 37.9 % (40-54); Hemoglobin 11.9 g/dL (13.0-16.5); Lymphocyte # 2.26 X10^3/ul (0.83-4.51); Mean Corp Hgb Conc 31.4 g/dL (32-36); Mean Corpuscular Hgb 28.7 pg (27.0-32.0); Mean Corpuscular Volume 91.5 fL (80-94); Monocyte# 1.04 X10^3/uL; Monocyte% 8.3 % (0-10); NRBC Flagged by Analyzer 0 % (0-5); Neutrophil # 8.86 X10^3/uL (2.7-7.7); Neutrophil % 70.2 % (47-70); Platelet Count 228 K/mm3 (150-450); RBC Distribution Width CV 14.7 % (11.6-14.6); RBC Distribution Width SD 49.4 fl (35.1-43.9); Red Blood Count 4.14 M/mm3 (4.6-6.2); White Blood Count 12.6 K/mm3 (4.4-11.0)
[2020-12-09 22:18] LABS: International Normalized Ratio 1.2; Prothrombin Time (Protime)PT. 14.1 SECONDS (11.7-14.9)
[2020-12-09 22:19] LABS: Partial Thromboplast Time 22.5 Seconds (24.1-36.2)
[2020-12-09 22:25] LABS: ALB/GLOB Ratio 0.8 RATIO (0.9-2.4); AST(SGOT) 11 U/L (15-37); Alanine Aminotransfer ALT/SGPT 9 U/L (16-61); Alkaline Phosphatase 101 U/L (45-117); Anion Gap 9 (5-15); BUN 48 mg/dL (7-18); BUN/Creat Ratio 16.2 RATIO (10-20); Calcium,Total 8.2 mg/dL (8.5-10.1); Chloride 108 mmol/L (98-107); Creatinine, Serum 2.97 mg/dL (0.70-1.30); EST Glomerular Filtration Rate 22 mL/min (>60); Est Glom Filt Rate - Afr Amer 26 mL/min (>60); Estimated Creatinine Clearance 22.13 ml/min; Globulin 3.6 g/dL (2.2-4.2); Glucose 159 mg/dL (74-106); Potassium 4.4 mmol/L (3.5-5.1); Protein, Total 6.6 g/dL (6.4-8.2); Sodium Level 138 mmol/L (136-145)
[2020-12-09 22:28] LABS: Lactic Acid 1.9 mmol/L (0.4-1.9)
--- NOTE | 2020-12-09 22:31 | ED.RN ---
Spoke with daughter LAISHA Mclean who reports his past medical and surgical history to me as patient is confused and poor historian. Daughter mentions that PT has been evaluated by [facility] and he reported to them that he was done taking his medications and ready to . Daughter supports this statement that she has seen his decline. She state that he has chronic hip pain, should have gotten a hip replacement 10+ years ago but refused. Now he has chronic pain that doesn't allow him to ambulate without significant pain, as a result, pt doesn't move from his chair for hours. PT is unable to make it to the bathroom d/t pain. He has a wound on coccyx supporting his poor movement. Daughter reports PT has lost 25lb in the past 4-6 weeks, either d/t him inability to move or want to eat. She has called at least 9 home health companies and is on the wait list for 3. She lives 1 hr away, works steward/stewardess lounge and is able to care for her dad on weekends only. Her cousin sees him on Wednesdays. Daughter wants her Dad placed into long-term care facility. PT seems appropriate for hospice consult. Caridad aware that I or Dr. Killian will update her once results are finalized.
--- NOTE | 2020-12-09 22:54 | HP.PCM.HOS_ITS ---
HPI - General General Date of Admission: 12/09/20 Date of Service: 12/09/20 Chief Complaint: Increased confusion, underlying dementia, FTT Adult HPI Narrative The patient is an 85 y/o M w/ PMHx: CAD s/p CABG, CKD stage III unclear subtype, HTN, HLD, Diabetes mellitus type II, Chronic COPD, Underlying presumed dementia which has been progressively worsening with family attempts to place him at SNF but currently he is on 2 waiting lists who presents to the [facility] ED on 12/09/20 with history of noted increased confusion above baseline per family upon checking up on him earlier in the day with well check requested per his daughter and given significant disorientation EMS evaluation prompted. Patient baseline is confused and unable to take care of himself but is notably worsened upon current presentation. Patient denies any recent fever, chills, nausea, emesis, abdominal pain, diarrhea but is very irritable with these questions and does have significant underlying confusion/dementia. Work-up in the ED included T 99, heart rate 76, BP 120/85, respiratory rate 16, 96% room air, CBC with WC 12.6, hemoglobin 11.9, platelet 228 with left shift, coags unremarkable, CMP with chloride 108, BUN/creatinine 48/2.97, glucose 159, lactic acid 1.9, AST/LT 11/9, CT brain with no acute intracranial findings however there is evidence of old lacunar infarcts in the right centrum semiovale and known take alert nucleus, chronic involutional ischemic changes of the brain, chest x-ray with no acute cardiopulmonary findings with stable scarring of the left lung, UA pending upon evaluation, urine culture and blood culture x2 pending per ED. [facility] Medical History (Updated 12/09/20 @ 23:[address] Ivon Martinez MD) Chronic pain COPD (chronic obstructive pulmonary disease) Dementia Diabetes Hypercholesteremia Irregular heart beat Kidney disease Home Medications Omeprazole [Prilosec] 40 mg PO DAILY 02/17/16 [History Last Taken Unknown] atorvastatin 40 mg PO QHS 02/17/16 [History Last Taken 12/11/17] clopidogrel 75 mg PO DAILY 02/17/16 [History Last Taken 12/12/17] furosemide 20 mg PO DAILY 02/17/16 [History Last Taken 12/12/17] isosorbide mononitrate 30 mg PO DAILY 02/17/16 [History Last Taken Unknown] metoprolol tartrate 25 mg PO BID 02/17/16 [History Last Taken Unknown] potassium chloride [Klor-Con 10] 10 meq PO DAILY 02/17/16 [History Last Taken Unknown] acetaminophen 500 mg PO Q6H PRN PRN 12/12/17 [History Last Taken Unknown] glipizide 5 mg PO BID 12/12/17 [History Last Taken 12/12/17] insulin glargine [Lantus U-100 Insulin] 20 unit SQ QHS 12/12/17 [History Last Taken 12/11/17] insulin glargine [Lantus U-100 Insulin] 46 unit SQ BREAKFAST 12/12/17 [History Last Taken 12/12/17] lisinopril [Zestril] 2.5 mg PO QHS 12/12/17 [History Last Taken Unknown] menthol [Biofreeze (menthol)] 1 applic TP PRN PRN 12/12/17 [History Last Taken Unknown] alogliptin 12.5 mg PO DAILY 12/09/20 [History Last Taken Unknown] cholecalciferol (vitamin D3) [Vitamin D3] 125 mcg PO DAILY 12/09/20 [History Last Taken Unknown] gabapentin 100 mg PO LUNCH 12/09/20 [History Last Taken Unknown] gabapentin 200 mg PO BID 12/09/20 [History Last Taken Unknown] Allergy/AdvReac Type Severity Reaction Status Date / Time venom-honey bee Allergy Hives Verified 12/12/17 14:39 [bee venom (honey bee)] Family History (Updated 12/09/20 @ 23:[address] Ivon Martinez MD) Mother Heart disease Father Heart disease Surgical History (Updated 12/09/20 @ 22:30 by Bela Reina) Hx of CABG Social History (Updated 12/09/20 @ 23:[address] Ivon Martinez MD) household members: none Smoking Status: Current every day smoker tobacco type: cigarettes alcohol intake: never substance use type: does not use ROS ROS Narrative Admission Review of Systems: CONSTITUTIONAL: No weight loss, fever, chills, + weakness or fatigue. HEENT: Eyes: No visual loss, blurred vision, double vision or yellow sclerae. Ears, Nose, Throat: No hearing loss, sneezing, congestion, runny nose or sore throat. SKIN: + Decubitus ulcer. CARDIOVASCULAR: No chest pain, chest pressure or chest discomfort, palpitations, edema, orthopnea, syncopal events. RESPIRATORY: No shortness of breath, cough or sputum, wheezing, hemoptysis. GASTROINTESTINAL: No anorexia, nausea, vomiting or diarrhea, abdominal pain, melena, BRBPR. GENITOURINARY: No dysuria, frequency, urgency or retention. NEUROLOGICAL: + Increased confusion above baseline, underlying dementia. No headache, dizziness, syncope, paralysis, ataxia, numbness or tingling in the extremities, focal weakness, change in bowel or bladder control, seizure. MUSCULOSKELETAL: + muscle, back pain, joint pain or stiffness. HEMATOLOGIC: + anemia, bleeding or bruising. LYMPHATICS: No enlarged nodes. No history of splenectomy. PSYCHIATRIC: No history of depression or anxiety. ENDOCRINOLOGIC: No reports of sweating, cold or heat intolerance. No polyuria or polydipsia. ALLERGIES: No history of asthma, hives, eczema or rhinitis. Vital Signs Vital Signs Vital Signs: 12/09/20 21:33 12/09/20 21:38 12/09/20 22:00 Temperature 99.0 F 99.0 F 99.0 F Temperature Source Oral Oral Oral Pulse Rate 76 76 76 Respiratory Rate 16 16 16 Blood Pressure 120/85 H 120/85 H 120/85 H Blood Pressure Mean 96 96 96 Pulse Ox 96 96 96 Oxygen Delivery Method Room Air Weight Weight: 214 lb 11.684 oz Body Mass Index (BMI) 26.8 Physical Exam Narrative Physical Examination: General: Awake, alert, oriented to self and does report he is in the hospital currently, notes that he is not been treated well but cannot say why, seated upright in the ED bed, irritable. Skin: Normal color, normal turgor, no icterus, no cyanosis except occasional staged ecchymoses and posterior coccyx pressure injury, mild bilateral lower extremity stasis skin changes. HEENT: AT/NC, EOMI, PERRLA, dry MM, no carotid bruits or JVD noted. Lungs: Mildly diminished, greater bases, moderate effort, no rales, ronchi or wheezing. Heart: Regular rate and rhythm; no gallop, rub audible. Abdomen: Soft, NTTP, ND, mildly hyperactive BS, no HSM. Extremities: No cyanosis, no clubbing, bilateral lower extremity pedal to distal dubose edema, chronic. Neurological: Patient awake, alert, oriented as noted, cognitive function diminished baseline with underlying cognitive impairment/dementia, unclear type, decreased from baseline per family, more confused, able to answer less questions appropriately; pupils equally reactive to light and accommodation, cranial nerves II-XII grossly normal, moving all 4 extremities, no focal deficits, strength moderately to severely globally decreased. Psychiatric: Affect appears irritable, no acute evidence of depressive or anxiety feelings. Results Lab / Micro Data Result Diagrams: 12/09/20 21:50 12/09/20 21:50 Labs: Laboratory Results - last 24 hr 12/09/20 12/09/20 12/09/20 21:50 21:50 21:50 WBC 12.6 H RBC 4.14 L Hgb 11.9 L Hct 37.9 L MCV 91.5 MCH 28.7 MCHC 31.4 L RDW Std Deviation 49.4 H RDW Coeff of Jael 14.7 H Plt Count 228 MPV 10.0 Immature Gran % (Auto) 0.600 Neut % (Auto) 70.2 H Lymph % (Auto) 18.0 L [place] % (Auto) 8.3 Eos % (Auto) 1.9 Baso % (Auto) 1.0 Absolute Neuts (auto) 8.9 H Absolute Lymphs (auto) 2.26 Nucleated RBC % 0 PT 14.1 INR 1.2 APTT 22.5 L Sodium 138 Potassium 4.4 Chloride 108 H Carbon Dioxide 21.0 Anion Gap 9 BUN 48 H Creatinine 2.97 H Estim Creat Clear Calc 22.13 Est GFR (MDRD) Af Amer 26 L Est GFR (MDRD) Non-Af 22 L BUN/Creatinine Ratio 16.2 Glucose 159 H Lactic Acid Calcium 8.2 L Total Bilirubin 0.40 AST 11 L ALT 9 L Alkaline Phosphatase 101 Total Protein 6.6 Albumin 3.0 L Globulin 3.6 Albumin/Globulin Ratio 0.8 L 12/09/20 21:50 WBC RBC Hgb Hct MCV MCH MCHC RDW Std Deviation RDW Coeff of Jael Plt Count MPV Immature Gran % (Auto) Neut % (Auto) Lymph % (Auto) [place] % (Auto) Eos % (Auto) Baso % (Auto) Absolute Neuts (auto) Absolute Lymphs (auto) Nucleated RBC % PT INR APTT Sodium Potassium Chloride Carbon Dioxide Anion Gap BUN Creatinine Estim Creat Clear Calc Est GFR (MDRD) Af Amer Est GFR (MDRD) Non-Af BUN/Creatinine Ratio Glucose Lactic Acid 1.9 Calcium Total Bilirubin AST ALT Alkaline Phosphatase Total Protein Albumin Globulin Albumin/Globulin Ratio Radiology Impression Chest X-Ray 12/09/20 21:59 IMPRESSION: No acute findings in the chest. Stable scarring in the left lung. at 2230 Reported and signed by: Gurvinder Moy MD Electronically Signed: Gurvinder Moy MD at 22:29 EDT Tel , Service support , Brain CT 12/09/20 22:04 IMPRESSION: No acute intracranial abnormality. 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 Chronic involutional and ischemic changes of the brain. Electronically Signed: Oliver Lion MD at 22:36 EDT Tel , Service support , Assessment & Plan Assessment/Plan (1) Acute encephalopathy: (2) MODESTO (acute kidney injury): PLAN: The patient is an 85 y/o M w/ PMHx: CAD s/p CABG, CKD stage III unclear subtype, HTN, HLD, Diabetes mellitus type II, Chronic COPD, Underlying presumed dementia which has been progressively worsening with family attempts to place him at SNF but currently he is on 2 waiting lists who presents to the [facility] ED on 12/09/20 with history of noted increased confusion above baseline per family upon checking up on him earlier in the day with well check requested per his daughter and given significant disorientation EMS evaluation prompted. Patient baseline is confused and unable to take care of himself but is notably worsened. 1. Acute encephalopathy on Underlying Dementia, Progressive, Unclear type with unclear behavioral disturbance history w/ general Failure to Thrive Adult: We will request surgical floor, continue judicious hydration given significant MODESTO, urinalysis is pending with CBC with WC mild elevation with left shift with negative CT of the head for acute findings but evidence of prior stroke, chest x-ray with no acute cardiopulmonary findings. If urinalysis is marked will initiate antibiotic therapy pending urine culture. PT, OT, case management consultations for discharge planning. 2. MODESTO on Chronic Kidney Disease Stage III, unclear subtype: Unclear specific etiology poss related to acute presentation #1, admission BUN/Cr 48/2.97, baseline renal function 1.5-2.0, will hydrate, hold nephrotoxic medications and repeat chemistry in AM. If no improvement would plan FeNa and renal ultrasound assessment. 3. Imaging evidence prior CVA: CT head with evidence old lacunar infarcts in the right centrum semiovale and lenticular nucleus, continue Plavix, statin, hypertensive regimen with hold parameters given MODESTO as noted as well as diabetic regimen. 4. CAD: Status post CABG, continue Plavix, statin, metoprolol regimen, temporarily holding lisinopril given MODESTO. 5. Hypertension: Continue home regimen including isosorbide, metoprolol, holding Lasix and lisinopril temporarily given MODESTO, PRN hydralazine. 6. Hyperlipidemia: Continue home statin regimen. 7. Chronic COPD: Not on routine inhalers, encourage head of bed, I-S, as needed albuterol. 8. Chronic normocytic anemia: Admission hemoglobin 11.9, similar to prior, 11- 12 range, continue outpatient follow-up. 9. Diabetes mellitus type II: Hold oral home regimen, continue home insulin regimen, ADA diet, accu checks w/ ISS. 10. GERD: Continue patient on PPI. 11. DVT prophylaxis: SCDs, heparin given MODESTO as noted. Charges/Coding Visit Charges Inpatient E&M: 23014 Init Hosp L3
[2020-12-09 23:11] VITALS: BP 111/80; PULSE 87; RESP 22; O2SAT 98
[2020-12-09 23:12] VITALS: BP 111/80; PULSE 87; RESP 22; TEMP 37.2; O2SAT 98
--- NOTE | 2020-12-09 23:30 | ED.RN ---
Caridad, daughter updated with POC, room number, nurses station number.
[2020-12-09 23:45] LABS: Magnesium 2.3 mg/dL (1.6-2.6)
[2020-12-09 23:50] VITALS: BP 124/56; PULSE 87; RESP 16; TEMP 36.8; O2SAT 97; BMI 25.8
[2020-12-09] MEDS: 0.9% Normal Saline 1,000 ML 125 ML IV (23:50)
[2020-12-10] VITALS (8 sets, daily range): BP systolic 109–164; BP diastolic 61–90; PULSE 71–85; RESP 16–18; TEMP 36.6–37; O2SAT 95–99; BMI 25.8
[2020-12-10 02:26] LABS: Bacteria 0 SEEN /hpf (None Seen); Mucous, Urine 0 SEEN /hpf (<or=2+); Squamous Epithelial Cells - UA 0 SEEN /hpf (0-5); White Blood Cells 0 SEEN /hpf (0-5)
[2020-12-10 02:27] LABS: Color, Urine Yellow (Yellow); Glucose, Dipstick Normal (Normal); Ketone-Dipstick Negative (Negative); Leukocyte Esterase-Dipstick Negative /ul (Negative); Nitrite-Dipstick Negative (Negative); Occult Blood-Urine 25 /ul (Negative); Protein-Dipstick 15 mg/dl (Negative); Urine Bilirubin Dipstick Negative (Negative); Urine Clarity Clear (Clear); Urine Urobilinogen Normal (Normal)
[2020-12-10 02:32] LABS: Red Blood Cells-Urine 0-5 SEEN /hpf (0-5)
[2020-12-10 06:06] LABS: Absolute Lymphocyte Count 2.88 X10^3/uL (0.83-4.51); Absolute Neutrophil Count 8.6 X10^3/uL (2.0-7.7); Basophil# 0.11 X10^3/uL; Basophil% 0.9 % (0-1); Eosinophil# 0.26 X10^3/uL; Hematocrit 38.8 % (40-54); Hemoglobin 12.2 g/dL (13.0-16.5); Lymphocyte # 2.88 X10^3/ul (0.83-4.51); Lymphocyte % 22.3 % (19-41); Mean Corp Hgb Conc 31.4 g/dL (32-36); Mean Corpuscular Hgb 28.6 pg (27.0-32.0); Mean Corpuscular Volume 91.1 fL (80-94); Mean Platelet Vol. 10.1 fl (6.2-12.0); Monocyte# 1.01 X10^3/uL; Monocyte% 7.8 % (0-10); NRBC Flagged by Analyzer 0 % (0-5); Neutrophil # 8.55 X10^3/uL (2.7-7.7); Neutrophil % 66.4 % (47-70); Platelet Count 223 K/mm3 (150-450); RBC Distribution Width CV 14.7 % (11.6-14.6); RBC Distribution Width SD 49.3 fl (35.1-43.9); Red Blood Count 4.26 M/mm3 (4.6-6.2); White Blood Count 12.9 K/mm3 (4.4-11.0)
[2020-12-10 06:41] LABS: ALB/GLOB Ratio 0.7 RATIO (0.9-2.4); AST(SGOT) 9 U/L (15-37); Alanine Aminotransfer ALT/SGPT 8 U/L (16-61); Albumin, Serum 2.6 g/dL (3.2-5.0); Alkaline Phosphatase 101 U/L (45-117); Anion Gap 7 (5-15); BUN 44 mg/dL (7-18); BUN/Creat Ratio 18.1 RATIO (10-20); Calcium,Total 8.2 mg/dL (8.5-10.1); Chloride 111 mmol/L (98-107); Creatinine, Serum 2.43 mg/dL (0.70-1.30); EST Glomerular Filtration Rate 27 mL/min (>60); Est Glom Filt Rate - Afr Amer 33 mL/min (>60); Estimated Creatinine Clearance 27.05 ml/min; Globulin 3.8 g/dL (2.2-4.2); Glucose 122 mg/dL (74-106); Potassium 4.3 mmol/L (3.5-5.1); Protein, Total 6.4 g/dL (6.4-8.2); Sodium Level 136 mmol/L (136-145)
[2020-12-10] MEDS: 0.9% Normal Saline 1,000 ML 125 ML IV (07:50)
[2020-12-10] MEDS: Gabapentin 100 MG Capsule 200 MG PO ×2 (07:55→22:12)
[2020-12-10] MEDS: Heparin Injection (Vial) 5,000 UNIT/ML VIAL 5000 UNIT SC ×2 (08:06→22:12)
[2020-12-10] MEDS: Cholecalciferol (VIT D3) 25 MCG TABLET (1,000 UNITS) 125 MCG PO (08:18)
[2020-12-10] MEDS: Pantoprazole Sodium 40 MG Tablet PO (08:18)
[2020-12-10] MEDS: Isosorbide Mononitrate 30 MG Tablet PO (08:19)
[2020-12-10] MEDS: Metoprolol Tartrate 25 MG Tablet PO ×2 (08:19→22:12)
[2020-12-10] MEDS: Clopidogrel Bisulfate 75 MG Tablet PO (08:19)
[2020-12-10 08:30] LABS: Bedside Glucose 124 mg/dL (70-110)
--- NOTE | 2020-12-10 10:28 | PCM.PN.HOSP ---
Documented by User: Jen Sumner NP, ART SUPERVISOR-C 12/10/20 10:43 Subjective Subjective Patient seen and examined. Denies current symptoms or complaints. No acute events overnight. Patient pleasant, underlying dementia. Objective Data Objective Data Vital Signs: Vital Signs Temp Pulse Resp BP Pulse Ox 98.3 F 77 18 121/71 H 96 12/10/20 08:00 12/10/20 08:19 12/10/20 08:00 12/10/20 08:00 12/10/20 08:00 Oxygen Delivery Method Room Air Weight: 206 lb 12.697 oz Body Mass Index (BMI) 25.8 Intake & Output: Intake and Output for Last 24 Hours 12/08/20 12/09/20 12/10/20 23:59 23:59 23:59 Intake Total 500 / 500 1120 / 1120 Output Total 100 / 100 Balance 500 / 500 1020 / 1020 Lab / Micro Data Result Diagrams: 12/10/20 05:46 12/10/20 05:46 Labs: Laboratory Results - last 24 hr 12/09/20 12/09/20 12/09/20 21:50 21:50 21:50 WBC 12.6 H RBC 4.14 L Hgb 11.9 L Hct 37.9 L MCV 91.5 MCH 28.7 MCHC 31.4 L RDW Std Deviation 49.4 H RDW Coeff of Jael 14.7 H Plt Count 228 MPV 10.0 Immature Gran % (Auto) 0.600 Neut % (Auto) 70.2 H Lymph % (Auto) 18.0 L [place] % (Auto) 8.3 Eos % (Auto) 1.9 Baso % (Auto) 1.0 Absolute Neuts (auto) 8.9 H Absolute Lymphs (auto) 2.26 Nucleated RBC % 0 PT 14.1 INR 1.2 APTT 22.5 L Sodium 138 Potassium 4.4 Chloride 108 H Carbon Dioxide 21.0 Anion Gap 9 BUN 48 H Creatinine 2.97 H Estim Creat Clear Calc 22.13 Est GFR (MDRD) Af Amer 26 L Est GFR (MDRD) Non-Af 22 L BUN/Creatinine Ratio 16.2 Glucose 159 H Lactic Acid Calcium 8.2 L Magnesium Total Bilirubin 0.40 AST 11 L ALT 9 L Alkaline Phosphatase 101 Total Protein 6.6 Albumin 3.0 L Globulin 3.6 Albumin/Globulin Ratio 0.8 L Urine Color Urine Clarity Urine pH Ur Specific [place] Urine Protein Urine Glucose (UA) Urine Ketones Urine Occult Blood Urine Nitrite Urine Bilirubin Urine Urobilinogen Ur Leukocyte Esterase Urine RBC Urine WBC Ur Squamous Epith Cells Urine Bacteria Urine Mucus POC Glucose 12/09/20 12/09/20 12/10/20 21:50 21:50 02:15 WBC RBC Hgb Hct MCV MCH MCHC RDW Std Deviation RDW Coeff of Jael Plt Count MPV Immature Gran % (Auto) Neut % (Auto) Lymph % (Auto) [place] % (Auto) Eos % (Auto) Baso % (Auto) Absolute Neuts (auto) Absolute Lymphs (auto) Nucleated RBC % PT INR APTT Sodium Potassium Chloride Carbon Dioxide Anion Gap BUN Creatinine Estim Creat Clear Calc Est GFR (MDRD) Af Amer Est GFR (MDRD) Non-Af BUN/Creatinine Ratio Glucose Lactic Acid 1.9 Calcium Magnesium 2.3 Total Bilirubin AST ALT Alkaline Phosphatase Total Protein Albumin Globulin Albumin/Globulin Ratio Urine Color Yellow Urine Clarity Clear Urine pH 5.0 Ur Specific [place] 1.020 Urine Protein 15 H Urine Glucose (UA) Normal Urine Ketones Negative Urine Occult Blood 25 H Urine Nitrite Negative Urine Bilirubin Negative Urine Urobilinogen Normal Ur Leukocyte Esterase Negative Urine RBC 0-5 SEEN Urine WBC 0 SEEN Ur Squamous Epith Cells 0 SEEN Urine Bacteria 0 SEEN Urine Mucus 0 SEEN POC Glucose 12/10/20 12/10/20 12/10/20 05:46 05:46 07:54 WBC 12.9 H RBC 4.26 L Hgb 12.2 L Hct 38.8 L MCV 91.1 MCH 28.6 MCHC 31.4 L RDW Std Deviation 49.3 H RDW Coeff of Jael 14.7 H Plt Count 223 MPV 10.1 Immature Gran % (Auto) 0.600 Neut % (Auto) 66.4 Lymph % (Auto) 22.3 [place] % (Auto) 7.8 Eos % (Auto) 2.0 Baso % (Auto) 0.9 Absolute Neuts (auto) 8.6 H Absolute Lymphs (auto) 2.88 Nucleated RBC % 0 PT INR APTT Sodium 136 Potassium 4.3 Chloride 111 H Carbon Dioxide 18.0 L Anion Gap 7 BUN 44 H Creatinine 2.43 H Estim Creat Clear Calc 27.05 Est GFR (MDRD) Af Amer 33 L Est GFR (MDRD) Non-Af 27 L BUN/Creatinine Ratio 18.1 Glucose 122 H Lactic Acid Calcium 8.2 L Magnesium Total Bilirubin 0.40 AST 9 L ALT 8 L Alkaline Phosphatase 101 Total Protein 6.4 Albumin 2.6 L Globulin 3.8 Albumin/Globulin Ratio 0.7 L Urine Color Urine Clarity Urine pH Ur Specific [place] Urine Protein Urine Glucose (UA) Urine Ketones Urine Occult Blood Urine Nitrite Urine Bilirubin Urine Urobilinogen Ur Leukocyte Esterase Urine RBC Urine WBC Ur Squamous Epith Cells Urine Bacteria Urine Mucus POC Glucose 124 H Radiography Diagnostic Testing: Radiology Impression Chest X-Ray 12/09/20 21:59 IMPRESSION: No acute findings in the chest. Stable scarring in the left lung. at 2230 Reported and signed by: Gurvinder Moy MD Electronically Signed: Gurvinder Moy MD at 22:29 EDT Tel , Service support , Brain CT 12/09/20 22:04 IMPRESSION: No acute intracranial abnormality. 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 Chronic involutional and ischemic changes of the brain. Electronically Signed: Oliver Lion MD at 22:36 EDT Tel , Service support , Physical Exam Const alert and no apparent distress Orientation / Consciousness: awake HEENT normocephalic and moist oral mucous membranes Eyes PERRL, EOMs intact bilaterally and conjunctivae normal Neck no lymphadenopathy Resp normal respiratory effort and clear to auscultation bilaterally Cardio regular rate, regular rhythm and no murmurs Peripheral Pulses: pulses 2+ throughout GI normal to inspection, nondistended, normoactive bowel sounds, non-tender and non-distended Extremity normal to inspection Skin no rashes or lesions noted Skin Narrative: Buttock/salome area incontinence related excoriation. Lesions: no lesions Rashes: no rashes Trauma: no lacerations or abrasions Neuro CN's II-XII intact bilaterally, no focal motor deficits, no sensory deficits noted and deep tendon reflexes 2+ bilaterally Psych mental status grossly normal and affect normal Assessment & Plan Assessment/Plan (1) MODESTO (acute kidney injury): (2) Acute encephalopathy: PLAN: 1. Acute encephalopathy, underlying progressive dementia-unknown behavioral disturbance history. No evidence of infectious etiology. Brain CT negative for acute findings, consistent with prior CVA. Chest x-ray unremarkable. PT/OT. 2. Failure to thrive-secondary to underlying progressive dementia. PT/OT. SW/CM following. Plan for SNF pending acceptance. 3. Acute kidney injury on chronic kidney disease stage IIIb-IV fluids, trend BMP. Creatinine improving. 4. History of CVA-continue Plavix, statin. 5. CAD-history of CABG. Continue Plavix, statin, metoprolol. 6. Hypertension-continue isosorbide, metoprolol. Hold nephrotoxic regimen including Lasix and lisinopril. 7. Hyperlipidemia-continue statin. 8. Chronic COPD-as needed albuterol aerosol 9. Chronic normocytic anemia-at baseline. 10. Type 2 diabetes [id number] with sliding scale insulin 11. GERD-on PPI. 12. Tobacco dependence-nicotine replacement patch ordered. DVT prophylaxis-heparin subcu This patient was seen by Jen Sumner NP-Evens under the supervision of Dr. Malik. Documented by User: Dr. Luis Malik MD 12/10/20 15:12 Subjective Subjective Seen and examined. Patient was admitted for generalized weakness, failure to thrive, difficulty ambulation with underlying dementia. Objective Data Lab / Micro Data Result Diagrams: 12/10/20 05:46 12/10/20 05:46 Physical Exam Narrative General: Alert, Oriented x3, Cooperative HEENT: Atraumatic, PERRLA, EOMI, Normocephalic Oral: No Gingival or Mucosal Lesions/ Ulcerations Neck: Supple, No JVD, Negative Carotid Bruits Lungs: Air entry diminished in bilateral lung bases. No crepitation/rhonchi Cardiovascular: Regular rate, Regular Rhythm, Normal S1, Normal S2, No murmurs Abdomen: Bowel Sounds Present, Soft, Non Tender, Non-Distended : No renal angle tenderness. No suprapubic tenderness. Extremities: Mild ankle edema, Capillary Refill Less than 3 Seconds Skin: No rashes, No breakdown Musculoskeletal: No Tenderness to Palpation of Joints or Extremities Neurological: Cranial nerves II-XII grossly intact, Deep Tendon Reflexes 2+/4 strength 4+ at major joints at hip and knee joints Psych/Mental Status: Flat affect, dementia Assessment & Plan Assessment/Plan (1) MODESTO (acute kidney injury): (2) Acute encephalopathy: (3) Stage III chronic kidney disease: PLAN: This patient was seen in conjunction with ART SUPERVISORJen. I have independently interviewed and examined the patient and reviewed pertinent history, examination findings, laboratory and plan of management. I have reviewed the note and agree with the documented findings with the few additional points. In brief, patient is admitted for patient admitted for confusion, abnormal behavior, inability to take care of himself from progressive dementia. No obvious infectious etiology. Patient has MODESTO on CKD stage IIIb. On IV fluid. Avoid nephrotoxic medications. Patient has extensive medical history including CVA, coronary artery status post CABG, hypertension, dyslipidemia, COPD, chronic anemia and diabetes mellitus type 2 as mentioned above. PT OT and case planner involved in care. I have discussed my assessment with Jen CHRISTOPHER and orders have been reviewed. Charges/Coding Visit Charges Inpatient E&M: 40823 Subs Hosp L2
[2020-12-10] MEDS: Gabapentin 100 MG Capsule PO (11:13)
[2020-12-10] MEDS: Insulin Lispro 100 UNIT/ML INSULN.PEN SC ×2 (11:16→22:07)
--- NOTE | 2020-12-10 11:20 | RAD.NOTE ---
wound photo: bilateral buttocks/ cleft
--- NOTE | 2020-12-10 11:25 | CASEMGMT ---
REMY called patient's daughter. Introduced self and role at [facility]. She confirmed patient needs to go to a skilled nursing. She said she did not have a preference. At first she said she prefers to have him some place closer to her, but then she said she didn't care right now she just wants to get him somewhere safe. She said she will be in today around 2p. She will ask for Social Work when she gets to the hospital. REM[facility] and [facility]. REMY called [facility] and left a message for the Extract Wringer there, Sav Carrera. He called SW back a little later and said patient is not service connected. REMY will work with patient's daughter on SNF placement. Neha LO
[2020-12-10 11:31] LABS: Bedside Glucose 160 mg/dL (70-110)
--- NOTE | 2020-12-10 13:15 | EX.NTREPO ---
Medical Nutrition Therapy - History Nutrition Services has been consulted to:: Manage nutrient details of diet order Current diet/nutrition support order:: Consistent carb - calorie controlled 1800kcal diet. Regular food consistency. Regular/thin liquid consistency. No ONS at this time. - Anthropometric Measurements Height:: 6 ft 3 in Weight:: 93.8 kg Body Mass Index (BMI):: 25.8 - Relevant Labs Relevant Labs:: WBC 12.9 K/mm3 (4.4-11.0) H 12/10/20 05:46 RBC 4.26 M/mm3 (4.6-6.2) L 12/10/20 05:46 Hgb 12.2 g/dL (13.0-16.5) L 12/10/20 05:46 Hct 38.8 % (40-54) L 12/10/20 05:46 MCHC 31.4 g/dL (32-36) L 12/10/20 05:46 RDW Std Deviation 49.3 fl (35.1-43.9) H 12/10/20 05:46 RDW Coeff of Jael 14.7 % (11.6-14.6) H 12/10/20 05:46 Neut % (Auto) 70.2 % (47-70) H 12/09/20 21:50 Lymph % (Auto) 18.0 % (19-41) L 12/09/20 21:50 Absolute Neuts (auto) 8.6 X10^3/uL (2.0-7.7) H 12/10/20 05:46 APTT 22.5 Seconds (24.1-36.2) L 12/09/20 21:50 Chloride 111 mmol/L (98-107) H 12/10/20 05:46 Carbon Dioxide 18.0 mmol/L (21.0-32.0) L 12/10/20 05:46 BUN 44 mg/dL (7-18) H 12/10/20 05:46 Creatinine 2.43 mg/dL (0.70-1.30) H 12/10/20 05:46 Est GFR (MDRD) Af Amer 33 mL/min (>60) L 12/10/20 05:46 Est GFR (MDRD) Non-Af 27 mL/min (>60) L 12/10/20 05:46 Glucose 122 mg/dL (74-106) H 12/10/20 05:46 Calcium 8.2 mg/dL (8.5-10.1) L 12/10/20 05:46 AST 9 U/L (15-37) L 12/10/20 05:46 ALT 8 U/L (16-61) L 12/10/20 05:46 Albumin 2.6 g/dL (3.2-5.0) L 12/10/20 05:46 Albumin/Globulin Ratio 0.7 RATIO (0.9-2.4) L 12/10/20 05:46 - Assessment Food and Nutrient Intake: Pt ate 100% of breakfast this morning. Pt reports that he had a poor appetite at home but has an increase in appetite since hospital admit. Reports that he checks his BG but wasn't able to identify his normal BG range. Pt reports that he has lost weight in ~6 months unintentionally. Pt's UBW is 230# and CBW is 206.8# representing 23.2#/10% weight loss in ~6 months-pt's intake and wt loss is significant for malnutrition. - Nutrition Diagnosis: Intake Problem Increased Nutrient Needs (specify) Intake Problem - Etiology: (protein) r/t wounds Intake Problem - Signs/Symptoms: as evidenced by BLE abrasions and pressure injury of coccyx. Status: Active Problem - Nutrition Diagnosis: Clinical Problem Chronic Disease or Condition Related Malnutrition Clinical Problem - Etiology: moderate malnutrition r/t inadequate oral intake Clinical Problem - Signs/Symptoms: as evidenced by pt report of decreased appetite, consumption of <75% of estimated energy needs, and unintentional wt loss of 23.2#/10% x6 months. Status: Active Problem - Protein Calorie Malnutrition Evidence of Malnutrition Exists: Yes Moderate Protein Calorie Malnutrition: Chronic - Nutrition Intervention Nutrition Prescription: 2,200-2,300kcal/day (RMR x 1.3). Protein 97-117g/day (1.0-1.2g/kg). Fluid 2,300-2,400mL/day (25mL/kg) - Food / Nutrient Delivery Interventions Nutrition support ordered as / adjusted to:: Increase to 2200kcal consistent carbohydrate diet. Add glucerna 120mL PO 4x/day at [facility]. Add 1 pkt Perez BID at lunch and dinner to aid in wound healing. - MNT Monitoring Active Nutrition Patient: Yes Nutrition Status: Requires Follow Up 3-5 Days
[2020-12-10] MEDS: Menthol/Lanolin/Calamine/Znox 113 GM Tube 1 APPLIC TOPICAL ×2 (14:10→22:13)
[2020-12-10] MEDS: Glucerna Shake 120 ML LIQUID PO ×3 (14:12→22:11)
--- NOTE | 2020-12-10 15:18 | CASEMGMT ---
REMY spoke with patient's daughter when she arrived. Discussed facilities. She said patient smokes so if there is a facility that will let him smoke that would be best. REMY told her [facility], [facility], and [facility] all allow smoking. She was in agreement with [facility]. REMY told her that Medicare will pay for days 1-20 at 100%. Starting at day 21 there is a daily co-pay, however his secondary insurance will pay for this. REMY told her once he starts to plateau with therapy they won't be able to bill Medicare and it would be private pay. She said he does not have the money to private pay. REMY told her they will help her apply for Medicaid for him. She said she tried about a year ago and he was over by $250. REMY called [facility] with referral to [facility] and also faxed information. Plan: [facility] pending acceptance. Neha Dallas ENGINEERING DIRECTOR WALLY
--- NOTE | 2020-12-10 15:47 | CASEMGMT ---
SW let patient's daughter know that SW has not heard back from [facility] yet, but will call her tomorrow to let her know if they can take him or not. Neha LO
[2020-12-10 16:36] LABS: Bedside Glucose 133 mg/dL (70-110)
[2020-12-10 22:11] LABS: Bedside Glucose 159 mg/dL (70-110)
[2020-12-10] MEDS: Atorvastatin Calcium 40 MG Tablet PO (22:12)
[2020-12-11 03:15] VITALS: BP 153/78; PULSE 90; RESP 18; TEMP 36.3; O2SAT 96
[2020-12-11] MEDS: Menthol/Lanolin/Calamine/Znox 113 GM Tube 1 APPLIC TOPICAL ×2 (05:46→11:32)
[2020-12-11 05:57] LABS: Absolute Lymphocyte Count 2.79 X10^3/uL (0.83-4.51); Absolute Neutrophil Count 6.4 X10^3/uL (2.0-7.7); Basophil# 0.11 X10^3/uL; Eosinophil# 0.35 X10^3/uL; Eosinophils% 3.3 % (0-5); Hematocrit 36.1 % (40-54); Hemoglobin 11.2 g/dL (13.0-16.5); Lymphocyte # 2.79 X10^3/ul (0.83-4.51); Lymphocyte % 26.4 % (19-41); Mean Corpuscular Hgb 28.6 pg (27.0-32.0); Mean Corpuscular Volume 92.3 fL (80-94); Mean Platelet Vol. 10.2 fl (6.2-12.0); Monocyte% 8.5 % (0-10); NRBC Flagged by Analyzer 0 % (0-5); Neutrophil # 6.36 X10^3/uL (2.7-7.7); Neutrophil % 60.3 % (47-70); Platelet Count 238 K/mm3 (150-450); RBC Distribution Width CV 14.7 % (11.6-14.6); RBC Distribution Width SD 50.2 fl (35.1-43.9); Red Blood Count 3.91 M/mm3 (4.6-6.2); White Blood Count 10.6 K/mm3 (4.4-11.0)
[2020-12-11 06:16] LABS: Anion Gap 7 (5-15); BUN 42 mg/dL (7-18); BUN/Creat Ratio 20.5 RATIO (10-20); Calcium,Total 8.4 mg/dL (8.5-10.1); Chloride 109 mmol/L (98-107); Creatinine, Serum 2.05 mg/dL (0.70-1.30); EST Glomerular Filtration Rate 33 mL/min (>60); Est Glom Filt Rate - Afr Amer 40 mL/min (>60); Estimated Creatinine Clearance 32.06 ml/min; Glucose 112 mg/dL (74-106); Potassium 4.3 mmol/L (3.5-5.1); Sodium Level 140 mmol/L (136-145)
[2020-12-11 07:45] VITALS: O2SAT 90
[2020-12-11] MEDS: Heparin Injection (Vial) 5,000 UNIT/ML VIAL 5000 UNIT SC (07:54)
[2020-12-11] MEDS: Gabapentin 100 MG Capsule 200 MG PO (07:54)
[2020-12-11 07:55] VITALS: BP 152/56; PULSE 64
[2020-12-11] MEDS: Metoprolol Tartrate 25 MG Tablet PO (07:55)
[2020-12-11] MEDS: Isosorbide Mononitrate 30 MG Tablet PO (07:55)
[2020-12-11] MEDS: Cholecalciferol (VIT D3) 25 MCG TABLET (1,000 UNITS) 125 MCG PO (07:56)
[2020-12-11] MEDS: Clopidogrel Bisulfate 75 MG Tablet PO (07:56)
[2020-12-11] MEDS: Glucerna Shake 120 ML LIQUID PO ×2 (08:02→11:50)
[2020-12-11] MEDS: Pantoprazole Sodium 40 MG Tablet PO (08:02)
[2020-12-11 08:04] VITALS: BP 152/56; PULSE 64; RESP 18; TEMP 36.8; O2SAT 99
[2020-12-11 08:11] LABS: Bedside Glucose 99 mg/dL (70-110)
--- NOTE | 2020-12-11 09:01 | CASEMGMT ---
REMY faxed PT/OT evaluations to [facility]. Neha Dallas TOOL PROFILING MACHINE SET UP OPERATOR WALLY
--- NOTE | 2020-12-11 10:37 | CASEMGMT ---
[facility] can take patient today. SW notified patient's daughter. She would like to know what time he will be going so she can be here. 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 Neha Dallas WASH OIL PUMP OPERATOR HELPER WALLY
--- NOTE | 2020-12-11 10:57 | PCM.TXEXTCAR ---
Diet 12/09/20 23:48 Diet: Consistent Carb - Calorie Controlled Food consistency:: Regular Liquid Consistency:: Regular/Thin Type of Dietary Supplement:: Perez Is pt able to select menu?: No Diet Comments: Perez lunch and dinner How many daily calories?: 2200 calorie Routine Orders/Code Status Enema Type: Fleetz Enema Frequency: Daily PRN Suppository Type: Dulcolax 10mg Suppository Frequency: Daily PRN Routine Lab Work: - (CBC, BMP Q Week) Code Status: Full Code Wound(s) coccyx: Wound Type: Pressure Injury BLE: Wound Type: Abrasion inner buttocks/yoselin cleft: Wound Type: incontinence associated skin damage Suggestions for Active Care Change Position every (hours): 2 Times a day to sit in chair: 3 Therapies Physical Therapy: Eval and Treat Occupational Therapy: Eval and Treat Problem/Diagnosis (1) MODESTO (acute kidney injury): Status: Acute (2) Acute encephalopathy: Status: Acute (3) Stage III chronic kidney disease: Status: Chronic Allergies/Procedures Done in Hospital Allergies venom-honey bee [bee venom (honey bee)] Allergy (Verified 12/12/17 14:39) Hives Procedures: None Type of Care/Length of Stay Estimated LOS: Convalescent Care Less Than 30 days Type of Care Needed: Skilled Rehab Potential: Fair Prognosis: Fair Additional Orders/Day of Discharge H&P will serve as current which was dated: 12/09/20 Day of Discharge: 12/11/20 Dietary and Speech Recommendations Dietitian Recommendations/Changes: Increase to 2200kcal consistent carbohydrate diet. Add glucerna 120mL PO 4x/day at [facility]. Add 1 pkt Perez BID at lunch and dinner to aid in wound healing. Discharge Plan Admission Admit Date/Time: 12/09/20 23:23 Primary Reason for Your Visit: Weakness Attending Provider: Augusto Lao Primary Care Provider: [facility],[place] Discharge Orders/Prescriptions Prescriptions: Continued atorvastatin 40 MG tablet 40 mg PO QHS RF: 0 isosorbide mononitrate 30 MG tablet extended release 24 hr 30 mg PO DAILY RF: 0 clopidogrel 75 MG tablet 75 mg PO DAILY RF: 0 metoprolol tartrate 25 MG tablet 25 mg PO BID RF: 0 Omeprazole [Prilosec] 20 MG capsule 40 mg PO DAILY RF: 0 lisinopril [Zestril] 5 MG tablet 2.5 mg PO QHS RF: 0 glipizide 5 MG tablet 5 mg PO BID RF: 0 acetaminophen 500 MG tablet 500 mg PO Q6H PRN PRN (Reason: Pain) RF: 0 menthol [Biofreeze (menthol)] 1 APPLIC gel 1 applic TP PRN PRN (Reason: Pain) RF: 0 gabapentin 100 mg Capsule 200 mg PO BID RF: 0 gabapentin 100 mg Capsule 100 mg PO LUNCH RF: 0 cholecalciferol (vitamin D3) [Vitamin D3] 125 mcg (5,000 unit) Tablet 125 mcg PO DAILY RF: 0 alogliptin 12.5 mg Tablet 12.5 mg PO DAILY RF: 0 Discontinued potassium chloride [Klor-Con 10] 10 MEQ tablet extended release 10 meq PO DAILY RF: 0 furosemide 20 MG tablet 20 mg PO DAILY RF: 0 Lantus U-100 Insulin 100 UNIT/ML solution 46 unit SQ BREAKFAST RF: 0 Lantus U-100 Insulin 100 UNIT/ML solution 20 unit SQ QHS RF: 0 [facility] - In 1 Week Disposition Disposition (needs filled in before D/C Order can be placed): Senior Care Facility
--- NOTE | 2020-12-11 11:07 | CASEMGMT ---
SW spoke with patient. Introduced self and role at [facility]. SW let him know that we found a place for him to do rehab and it is called [facility]. SW let him know he will be able to smoke. SW also let him know he will probably go today and his daughter wants to be here when he goes. He was in agreement with plan. Plan: [facility] under skilled level of care on a PASRR as he may be care home. Neha Dallas RESIDENTIAL PROGRAM WORKER WALLY
--- NOTE | 2020-12-11 11:10 | PCM.DC.SUM ---
Documented by User: Jen Sumner NP, SURVEILLANCE SYSTEM MONITOR-C 12/11/20 11:19 Providers Date of Admission: 12/09/20 Date of Discharge: 12/11/20 Primary Care Physician: [place] [facility] Consultations 12/09/20 23:48 Consult: Onc/Wound/mild disabilities teacher Routine Comment: Reason For Visit: MODESTO, ENCEPHALOPATHY, FTT ADULT Diagnosis Discharge Diagnosis (1) MODESTO (acute kidney injury): Status: Acute Code(s): N17.9 - Acute kidney failure, unspecified (2) Acute encephalopathy: Status: Acute Code(s): G93.40 - Encephalopathy, unspecified (3) Stage III chronic kidney disease: Status: Chronic Code(s): N18.3 - Chronic kidney disease, stage 3 (moderate) Medications at Discharge Home Medications Omeprazole [Prilosec] 40 mg PO DAILY 02/17/16 atorvastatin 40 mg PO QHS 02/17/16 clopidogrel 75 mg PO DAILY 02/17/16 isosorbide mononitrate 30 mg PO DAILY 02/17/16 metoprolol tartrate 25 mg PO BID 02/17/16 acetaminophen 500 mg PO Q6H PRN PRN 12/12/17 glipizide 5 mg PO BID 12/12/17 lisinopril [Zestril] 2.5 mg PO QHS 12/12/17 menthol [Biofreeze (menthol)] 1 applic TP PRN PRN 12/12/17 alogliptin 12.5 mg PO DAILY 12/09/20 cholecalciferol (vitamin D3) [Vitamin D3] 125 mcg PO DAILY 12/09/20 gabapentin 100 mg PO LUNCH 12/09/20 gabapentin 200 mg PO BID 12/09/20 Hospital Course Operations None Procedures None Summary of Care Provided Minutes Spent on Discharge: 35 Hospital Course: Patient is an 85-year-old male admitted 12/09/20 due to failure to thrive. 1. Acute encephalopathy, underlying progressive dementia-unknown behavioral disturbance history. No evidence of infectious etiology. Brain CT negative for acute findings, consistent with prior CVA. Chest x-ray unremarkable. At baseline mental status. SNF at [place] for [place]. 2. Failure to thrive-secondary to underlying progressive dementia. SNF at [place]. 3. Acute kidney injury on chronic kidney disease stage IIIb- Creatinine improved with IV fluids. Lasix discontinued at discharge. 4. History of CVA-continue Plavix, statin. 5. CAD-history of CABG. Continue Plavix, statin, metoprolol. 6. Hypertension-continue isosorbide, metoprolol. Resume lisinopril at DC. Continue to hold lasix. 7. Hyperlipidemia-continue statin. 8. Chronic COPD-as needed albuterol aerosol 9. Chronic normocytic anemia-at baseline. 10. Type 2 diabetes mellitus-continue home oral regimen. [facility], patient is not on insulin at baseline which was listed on his home medication list. Continue glipizide and alogliptin. 11. GERD-on PPI. 12. Tobacco dependence-nicotine replacement patch ordered. Physical Exam Const alert and no apparent distress Orientation / Consciousness: awake HEENT normocephalic and moist oral mucous membranes Eyes PERRL, EOMs intact bilaterally and conjunctivae normal Neck no lymphadenopathy Resp normal respiratory effort and clear to auscultation bilaterally Cardio regular rate, regular rhythm and no murmurs Peripheral Pulses: pulses 2+ throughout GI normal to inspection, nondistended, normoactive bowel sounds, non-tender and non-distended Extremity normal to inspection Skin no rashes or lesions noted Skin Narrative: Buttock/salome area incontinence related excoriation. Lesions: no lesions Rashes: no rashes Trauma: no lacerations or abrasions Neuro CN's II-XII intact bilaterally, no focal motor deficits, no sensory deficits noted and deep tendon reflexes 2+ bilaterally Psych mental status grossly normal and affect normal Patient seen and examined prior to discharge. Physical assessment as noted above. Patient is stable for discharge with follow up recommendations as noted above. This patient was seen by BLU Manrique under the supervision of Dr. Lao. Weight / BMI Weight Weight: 220 lb 14.451 oz Body Mass Index (BMI) 25.8 ABG / Lab / Microbiology Data Result Diagrams: 12/11/20 04:50 12/11/20 04:50 Laboratory: Laboratory Results - last 24 hr 12/10/20 12/10/20 12/10/20 02:15 11:14 16:31 WBC RBC Hgb Hct MCV MCH MCHC RDW Std Deviation RDW Coeff of Jael Plt Count MPV Immature Gran % (Auto) Neut % (Auto) Lymph % (Auto) [place] % (Auto) Eos % (Auto) Baso % (Auto) Absolute Neuts (auto) Absolute Lymphs (auto) Nucleated RBC % Sodium Potassium Chloride Carbon Dioxide Anion Gap BUN Creatinine Estim Creat Clear Calc Est GFR (MDRD) Af Amer Est GFR (MDRD) Non-Af BUN/Creatinine Ratio Glucose Calcium Urine Color Yellow Urine Clarity Clear Urine pH 5.0 Ur Specific [place] 1.020 Urine Protein 15 H Urine Glucose (UA) Normal Urine Ketones Negative Urine Occult Blood 25 H Urine Nitrite Negative Urine Bilirubin Negative Urine Urobilinogen Normal Ur Leukocyte Esterase Negative Urine RBC 0-5 SEEN Urine WBC 0 SEEN Ur Squamous Epith Cells 0 SEEN Urine Bacteria 0 SEEN Urine Mucus 0 SEEN POC Glucose 160 H 133 H 12/10/20 12/11/20 12/11/20 22:03 04:50 04:50 WBC 10.6 RBC 3.91 L Hgb 11.2 L Hct 36.1 L MCV 92.3 MCH 28.6 MCHC 31.0 L RDW Std Deviation 50.2 H RDW Coeff of Jael 14.7 H Plt Count 238 MPV 10.2 Immature Gran % (Auto) 0.500 Neut % (Auto) 60.3 Lymph % (Auto) 26.4 [place] % (Auto) 8.5 Eos % (Auto) 3.3 Baso % (Auto) 1.0 Absolute Neuts (auto) 6.4 Absolute Lymphs (auto) 2.79 Nucleated RBC % 0 Sodium 140 Potassium 4.3 Chloride 109 H Carbon Dioxide 24.0 Anion Gap 7 BUN 42 H Creatinine 2.05 H Estim Creat Clear Calc 32.06 Est GFR (MDRD) Af Amer 40 L Est GFR (MDRD) Non-Af 33 L BUN/Creatinine Ratio 20.5 H Glucose 112 H Calcium 8.4 L Urine Color Urine Clarity Urine pH Ur Specific [place] Urine Protein Urine Glucose (UA) Urine Ketones Urine Occult Blood Urine Nitrite Urine Bilirubin Urine Urobilinogen Ur Leukocyte Esterase Urine RBC Urine WBC Ur Squamous Epith Cells Urine Bacteria Urine Mucus POC Glucose 159 H 12/11/20 07:40 WBC RBC Hgb Hct MCV MCH MCHC RDW Std Deviation RDW Coeff of Jael Plt Count MPV Immature Gran % (Auto) Neut % (Auto) Lymph % (Auto) [place] % (Auto) Eos % (Auto) Baso % (Auto) Absolute Neuts (auto) Absolute Lymphs (auto) Nucleated RBC % Sodium Potassium Chloride Carbon Dioxide Anion Gap BUN Creatinine Estim Creat Clear Calc Est GFR (MDRD) Af Amer Est GFR (MDRD) Non-Af BUN/Creatinine Ratio Glucose Calcium Urine Color Urine Clarity Urine pH Ur Specific [place] Urine Protein Urine Glucose (UA) Urine Ketones Urine Occult Blood Urine Nitrite Urine Bilirubin Urine Urobilinogen Ur Leukocyte Esterase Urine RBC Urine WBC Ur Squamous Epith Cells Urine Bacteria Urine Mucus POC Glucose 99 Microbiology: Microbiology 12/10/20 02:15 Urine Culture - Final Urine, Clean Catch Mixed Gram Pos & Gram Neg Org Microbiology 12/10/20 02:15 Urine, Clean Catch Urine Culture - Final Mixed Gram Pos & Gram Neg Org Meaningful Use Info Meaningful Use Diagnoses (Choose all that apply): None applicable Discharge Plan Admission Admit Date/Time: 12/09/20 23:23 Primary Reason for Your Visit: Weakness Attending Provider: Augusto Lao Primary Care Provider: [facility] [place] Discharge Orders/Prescriptions Prescriptions: Continued atorvastatin 40 MG tablet 40 mg PO QHS RF: 0 isosorbide mononitrate 30 MG tablet extended release 24 hr 30 mg PO DAILY RF: 0 clopidogrel 75 MG tablet 75 mg PO DAILY RF: 0 metoprolol tartrate 25 MG tablet 25 mg PO BID RF: 0 Omeprazole [Prilosec] 20 MG capsule 40 mg PO DAILY RF: 0 lisinopril [Zestril] 5 MG tablet 2.5 mg PO QHS RF: 0 glipizide 5 MG tablet 5 mg PO BID RF: 0 acetaminophen 500 MG tablet 500 mg PO Q6H PRN PRN (Reason: Pain) RF: 0 menthol [Biofreeze (menthol)] 1 APPLIC gel 1 applic TP PRN PRN (Reason: Pain) RF: 0 gabapentin 100 mg Capsule 200 mg PO BID RF: 0 gabapentin 100 mg Capsule 100 mg PO LUNCH RF: 0 cholecalciferol (vitamin D3) [Vitamin D3] 125 mcg (5,000 unit) Tablet 125 mcg PO DAILY RF: 0 alogliptin 12.5 mg Tablet 12.5 mg PO DAILY RF: 0 Discontinued potassium chloride [Klor-Con 10] 10 MEQ tablet extended release 10 meq PO DAILY RF: 0 furosemide 20 MG tablet 20 mg PO DAILY RF: 0 Lantus U-100 Insulin 100 UNIT/ML solution 46 unit SQ BREAKFAST RF: 0 Lantus U-100 Insulin 100 UNIT/ML solution 20 unit SQ QHS RF: 0 Referrals / Follow Up: [facility],[place] [Primary Care Provider] - In 1 Week Disposition Disposition (needs filled in before D/C Order can be placed): Senior Care Facility Documented by User: Dr. Augusto Lao DO 12/11/20 13:46 Providers Date of Admission: 12/09/20 Reason For Visit: MODESTO, ENCEPHALOPATHY, FTT ADULT Medications at Discharge Home Medications Omeprazole [Prilosec] 40 mg PO DAILY 02/17/16 atorvastatin 40 mg PO QHS 02/17/16 clopidogrel 75 mg PO DAILY 02/17/16 isosorbide mononitrate 30 mg PO DAILY 02/17/16 metoprolol tartrate 25 mg PO BID 02/17/16 acetaminophen 500 mg PO Q6H PRN PRN 12/12/17 glipizide 5 mg PO BID 12/12/17 lisinopril [Zestril] 2.5 mg PO QHS 12/12/17 menthol [Biofreeze (menthol)] 1 applic TP PRN PRN 12/12/17 alogliptin 12.5 mg PO DAILY 12/09/20 cholecalciferol (vitamin D3) [Vitamin D3] 125 mcg PO DAILY 12/09/20 gabapentin 100 mg PO LUNCH 12/09/20 gabapentin 200 mg PO BID 12/09/20 Hospital Course Operations None Summary of Care Provided Minutes Spent on Discharge: 32 Hospital Course: Patient seen and examined independently. Data reviewed. I agree with the above note by the nurse practitioner. 85-year-old female presents with confusion. Patient has known dementia. Patient underwent work-up and revealed no infectious etiology for the encephalopathy. Patient did have an elevated creatinine when he presented at 2.97. Did receive IV fluids and his furosemide was discontinued. Today his creatinine is down to 2.05. Patient was in by self and was just declining and was evaluated for failure to thrive. Patient was assessed and deemed appropriate for assisted facility by therapy. Patient be discharged home in stable condition. Physical Exam Const alert Resp normal respiratory effort, no use of accessory muscles and clear to auscultation bilaterally Cardio regular rate, regular rhythm, S1 normal heart sound and S2 normal heart sound GI normal to inspection, nondistended, normoactive bowel sounds, non-tender and non-distended ABG / Lab / Microbiology Data Result Diagrams: 12/11/20 04:50 12/11/20 04:50 D/C Instructions Discharge Diet: No restrictions Discharge Plan Admission Admit Date/Time: 12/09/20 23:23 Primary Reason for Your Visit: Weakness Attending Provider: Augusto Lao Primary Care Provider: [facility],[place] Discharge Orders/Prescriptions Prescriptions: Continued atorvastatin 40 MG tablet 40 mg PO QHS RF: 0 isosorbide mononitrate 30 MG tablet extended release 24 hr 30 mg PO DAILY RF: 0 clopidogrel 75 MG tablet 75 mg PO DAILY RF: 0 metoprolol tartrate 25 MG tablet 25 mg PO BID RF: 0 Omeprazole [Prilosec] 20 MG capsule 40 mg PO DAILY RF: 0 lisinopril [Zestril] 5 MG tablet 2.5 mg PO QHS RF: 0 glipizide 5 MG tablet 5 mg PO BID RF: 0 acetaminophen 500 MG tablet 500 mg PO Q6H PRN PRN (Reason: Pain) RF: 0 menthol [Biofreeze (menthol)] 1 APPLIC gel 1 applic TP PRN PRN (Reason: Pain) RF: 0 gabapentin 100 mg Capsule 200 mg PO BID RF: 0 gabapentin 100 mg Capsule 100 mg PO LUNCH RF: 0 cholecalciferol (vitamin D3) [Vitamin D3] 125 mcg (5,000 unit) Tablet 125 mcg PO DAILY RF: 0 alogliptin 12.5 mg Tablet 12.5 mg PO DAILY RF: 0 Discontinued potassium chloride [Klor-Con 10] 10 MEQ tablet extended release 10 meq PO DAILY RF: 0 furosemide 20 MG tablet 20 mg PO DAILY RF: 0 Lantus U-100 Insulin 100 UNIT/ML solution 46 unit SQ BREAKFAST RF: 0 Lantus U-100 Insulin 100 UNIT/ML solution 20 unit SQ QHS RF: 0 Referrals / Follow Up: [place] [Primary Care Provider] - In 1 Week Disposition Disposition (needs filled in before D/C Order can be placed): Senior Care Facility Charges/Coding Visit Charges Inpatient E&M: 45636 Disch Hosp
[2020-12-11] MEDS: Insulin Lispro 100 UNIT/ML INSULN.PEN SC (11:30)
[2020-12-11] MEDS: Gabapentin 100 MG Capsule PO (11:31)
--- NOTE | 2020-12-11 11:42 | CASEMGMT ---
REMY arranged for patient to get picked up at 3p via cot. REMY notified RN, secretary of police, patient, his daughter who will meet him there, and Charity with [facility]. Plan: d/c to [place] under skilled level of care on a PASRR. [facility] will transport via cot due to Dementia. Neha Dallas CIGAR MAKING MACHINE SUPERVISOR WALLY
[2020-12-11 12:00] LABS: Bedside Glucose 196 mg/dL (70-110)
--- NOTE | 2020-12-11 14:04 | CASEMGMT ---
REMY faxed negative COVID test to Charity with [facility]. Neha Dallas CLINICAL PROFESSOR FLITCH HANGER
[2020-12-11 14:23] VITALS: BP 133/55; PULSE 60; RESP 18; TEMP 36.6; O2SAT 96
== END 2020-12-11 15:07 | disposition skilled nursing facility (03) | DRG 683 ==
LOC: ED 23:10 → PCU 23:27
PROVIDERS: Internal Medicine; Nurse Practitioner Family; Admitting Provider Family Medicine; Emergency Provider Emergency Medicine
DX: N17.9 Acute kidney failure, unspecified (principal); G93.40 Encephalopathy, unspecified; E44.0 Moderate protein-calorie malnutrition; R62.7 Adult failure to thrive; J44.9 Chronic obstructive pulmonary disease, unspecified; E11.22 Type 2 diabetes mellitus with diabetic chronic kidney disease; E78.5 Hyperlipidemia, unspecified; D64.9 Anemia, unspecified; K21.9 Gastro-esophageal reflux disease without esophagitis; I12.9 Hypertensive chronic kidney disease with stage 1 through stage 4 chronic kidney disease, or unspecified chronic kidney disease; N18.32 Chronic kidney disease, stage 3b; I25.10 Atherosclerotic heart disease of native coronary artery without angina pectoris; F03.90 Unspecified dementia, unspecified severity, without behavioral disturbance, psychotic disturbance, mood disturbance, and anxiety; Z86.73 Personal history of transient ischemic attack (TIA), and cerebral infarction without residual deficits; Z95.1 Presence of aortocoronary bypass graft; G89.29 Other chronic pain; E78.00 Pure hypercholesterolemia, unspecified; F17.210 Nicotine dependence, cigarettes, uncomplicated; Z79.02 Long term (current) use of antithrombotics/antiplatelets; Z79.4 Long term (current) use of insulin; Z79.899 Other long term (current) drug therapy; Z82.49 Family history of ischemic heart disease and other diseases of the circulatory system; Z68.25 Body mass index [BMI] 25.0-25.9, adult
CPT/HCPCS: 36415; 70450; 71045; 80048; 80053; 81001; 82962; 83605; 83735; 85025; 85610; 85730; 87040; 87086; 87088; 87426; 93005; 97110; 97162; 97167; 97530; 97535; 97802; 99251; 99285; 99406; J7030; G0463

== ENCOUNTER 2021-02-04 10:56 | Inpatient (IN) | payer OTHER, MEDICARE, BC, SELFPAY ==
[2021-02-04] VITALS (8 sets, daily range): BP systolic 115–160; BP diastolic 69–93; PULSE 78–100; RESP 16–24; TEMP 36.8–37.6; O2SAT 95–99; BMI 26.1; BMI 25.7
--- NOTE | 2021-02-04 11:55 | RAD_ITS ---
STUDY: X-RAY - PELVIS AND RIGHT HIP REASON FOR EXAM: Male, 85 years old. Eval hip fracture TECHNIQUE: 3 views of the pelvis and hip. COMPARISON: None. FINDINGS: There is a non-specific bowel gas pattern. There are atherosclerotic vascular calcifications of the pelvic arteries. There is narrowing with cortical sclerosis and osteophyte formation of the sacroiliac joint consistent with degenerative osteoarthritic changes. Normal bilateral superior and inferior pubic rami. There are degenerative changes of the pubic symphysis with articular narrowing and sclerosis. Normal bilateral ischial tuberosities. There is a nondisplaced transverse fracture at the base of the right femoral neck. Marked degree of osteoarthritis and joint space narrowing of the right hip joint with subchondral cystic changes in the right femoral head and irregularity of the femoral cortex suggestive of avascular necrosis. There is an element of right femoral acetabular impingement. RAD/HIP, UNI W/ Pelvis 2-3 Views IMPRESSION: Nondisplaced transverse fracture at the base of the right femoral neck. Marked degree of osteoarthritis of the right hip joint as described. Avascular necrosis should be ruled out. Electronically Signed: Rikki Hastings MD at 12:39 EDT , Service support ,
--- NOTE | 2021-02-04 11:55 | CT_ITS ---
STUDY: CT BRAIN WITHOUT CONTRAST REASON FOR EXAM: Male, 85 years old. Fall RADIATION DOSAGE (If Supplied By Facility): CTDIvol = ( 44.99 ) mGy, DLP = ( 1558.47 ) mGycm TECHNIQUE: Transaxial CT imaging of the brain was performed without administration of intravenous contrast material. Individualized dose optimization techniques were used for this CT. COMPARISON: Comparison is made with prior study dated 12/09/2020. FINDINGS: Normal soft tissue structures. Normal calvarium. There is mild cerebral atrophy with widening of the extra-axial spaces and ventricular dilatation. There are areas of decreased attenuation within the white matter tracts of the supratentorial brain, consistent with microvascular disease changes. Stable small left lacunar basal ganglion infarct. Normal brainstem. Normal cerebellum. There is no intracranial hemorrhage. There are no findings of an acute ischemic infarction. Normal visualized paranasal sinuses. CT/Brain/Head without Contrast IMPRESSION: Chronic involutional changes of the brain. Electronically Signed: Rikki Hastings MD at 12:27 EDT , Service support ,
--- NOTE | 2021-02-04 11:58 | EDS_ITS ---
HPI HPI - Fall History of Present Illness Chief Complaint: Fall Informant: family and SNF Narrative Narrative: Patient is an 85-year-old male with a past medical history of dementia who presents to the emergency department after a fall this morning. Apparently patient has had 4 falls recently. They obtained an x-ray and found a hip fracture. Patient is not able to help provide any history. I did contact the patient's POA, his daughter Caridad. Patient does not appear to be in any acute pain at this time. It is unsure if he struck his head. Patient was ambulating well with [facility]er at the [facility] facility since he was admi tted in December. He ended up developing pneumonia and has had significant decline in weakness since then. Over the past 2 weeks he has had difficulty ambulating. [facility] Medical History (Updated 02/04/21 @ 15:[address] Abdiel Estrada, ) CAD (coronary artery disease) Chronic anemia Chronic pain COPD (chronic obstructive pulmonary disease) Dementia Depression Diabetes Encephalopathy GERD (gastroesophageal reflux disease) Hip fx Hypercholesteremia Hyperlipemia Hypertension Irregular heart beat Kidney disease Myocardial infarct TIA (transient ischemic attack) Home Medications atorvastatin 40 mg PO QHS 02/17/16 [History Last Taken 12/11/17] clopidogrel 75 mg PO DAILY 02/17/16 [History Last Taken 12/12/17] isosorbide mononitrate 30 mg PO DAILY 02/17/16 [History Last Taken Unknown] metoprolol tartrate 25 mg PO BID 02/17/16 [History Last Taken Unknown] acetaminophen 500 mg PO Q6H PRN PRN 12/12/17 [History Last Taken Unknown] glipizide 5 mg PO BID 12/12/17 [History Last Taken 12/12/17] lisinopril [Zestril] 5 mg PO QHS 12/12/17 [History Last Taken Unknown] alogliptin 12.5 mg PO DAILY 12/09/20 [History Last Taken Unknown] cholecalciferol (vitamin D3) [Vitamin D3] 125 mcg PO DAILY 12/09/20 [History Last Taken Unknown] gabapentin 100 mg PO LUNCH 12/09/20 [History Last Taken Unknown] gabapentin 200 mg PO BID 12/09/20 [History Last Taken Unknown] ipratropium-albuterol [DuoNeb] 3 ml INHALATION Q6H PRN 02/04/21 [History Last Taken Unknown] pantoprazole 40 mg PO DAILY 02/04/21 [History Last Taken Unknown] sertraline [Zoloft] 50 mg PO DAILY 02/04/21 [History Last Taken Unknown] Allergy/AdvReac Type Severity Reaction Status Date / Time venom-honey bee Allergy Hives Verified 02/04/21 11:05 [bee venom (honey bee)] Family History Mother Heart disease Father Heart disease Surgical History Hx of CABG Social History household members: none housing: house Smoking Status: Current every day smoker tobacco type: cigarettes Tobacco: How many years used: 70 alcohol intake: never substance use type: does not use ROS ROS ED Review of Systems ROS Unobtainable: due to mental condition EXAM Physical Exam Const Vital Signs: 02/04/21 10:57 02/04/21 12:01 02/04/21 13:12 Temperature 99.7 F H Temperature Source Oral Pulse Rate 100 92 Respiratory Rate 16 24 H Blood Pressure 140/87 H 140/69 H 140/85 H Blood Pressure Mean 104 92 103 Pulse Ox 98 98 Oxygen Delivery Method Nasal Cannula Nasal Cannula Oxygen Flow Rate (L/min) 3 3 Positive well nourished and well developed General Appearance ED: well developed and NAD HEENT Reports normocephalic, head/scalp atraumatic and moist mucous membranes Eyes PERRL and EOMs intact bilaterally Neck supple General: Negative for tenderness Chest Wall inspection of chest normal Resp normal respiratory effort and clear to auscultation bilaterally Auscultation: Negative for rales, rhonchi or wheezes Cardio regular rate, regular rhythm and no murmurs GI normal to inspection, nondistended, normoactive bowel sounds and non-tender Palpation: soft; Negative for guarding or rebound tenderness present Back/Spine Cervical Spine: Negative for cervical spine tenderness Thoracic Spine / Upper Back: Negative for thoracic spinal tenderness Lumbar Spine / Lower Back: Negative for lumbar spinal tenderness Extremity Extremity Narrative: Right leg is slightly shortened and externally rotated. 2+ DP pulse. General Extremety ED: Negative for edema or tenderness General Extremity: Negative for edema Neuro Neuro Narrative: Patient not answering orientation questions. Is not able to help provide any history. Sensorium / Orientation: alert Motor Exam: strength 5/5 throughout Skin no rashes or lesions noted Lesions: no lesions Rashes: no rashes MDM MDM MDM Narrative Medical decision making narrative: Patient presents to the emergency department for fall today. Apparently outpatient x-ray showed a hip fracture. Patient does have a DNR/CC. I did contact the patient's POA. Will obtain her own imaging and basic lab work. X-ray showed a nondisplaced transverse fracture at the right femoral neck. CT scan of the head did not reveal any acute traumatic findings. Lab work showed mild increase of white blood cell count. He is mildly anemic but this is higher from previous lab draws. He has a creatinine of 1.54 which is improved from his previous lab draw as well. At this time will bring into the hospital for further evaluation and management. He has remained stable throughout ED stay. Lab Data Labs: Laboratory Results - last 24 hr 02/04/21 02/04/21 02/04/21 11:10 11:40 11:40 WBC 14.4 H RBC 4.49 L Hgb 12.2 L Hct 39.0 L MCV 86.9 MCH 27.2 MCHC 31.3 L RDW Std Deviation 52.2 H RDW Coeff of Jael 16.4 H Plt Count 254 MPV 9.8 Immature Gran % (Auto) 0.700 Neut % (Auto) 92.1 H Lymph % (Auto) 3.3 L Dane % (Auto) 3.7 Eos % (Auto) 0.0 Baso % (Auto) 0.2 Absolute Neuts (auto) 13.3 H Absolute Lymphs (auto) 0.48 L Nucleated RBC % 0 Differential Comment COMMENT Sodium 137 Potassium 4.7 Chloride 107 Carbon Dioxide 24.0 Anion Gap 6 BUN 26 H Creatinine 1.54 H Estim Creat Clear Calc 42.68 Est GFR (MDRD) Af Amer 56 L Est GFR (MDRD) Non-Af 46 L BUN/Creatinine Ratio 16.9 Glucose 192 H Calcium 8.7 Blood Type O POSITIVE Antibody Screen NEGATIVE Radiography Diagnostic Testing: Radiology Impression Brain CT 02/04/21 11:55 IMPRESSION: Chronic involutional changes of the brain. Electronically Signed: Rikki Hastings MD at 12:27 EDT , Service support , Hip/Pelvis X-Ray 02/04/21 11:55 IMPRESSION: Nondisplaced transverse fracture at the base of the right femoral neck. Marked degree of osteoarthritis of the right hip joint as described. Avascular necrosis should be ruled out. Electronically Signed: Rikki Hastings MD at 12:39 EDT , Service support , Discharge Plan Dx/Rx/DC Orders Clinical Impression: Femoral neck fracture Disposition Disposition: Acute Care Hospital [facility] Discharge Date/Time: 02/04/21 14:29
[2021-02-04 12:08] LABS: Absolute Lymphocyte Count 0.48 X10^3/uL (0.83-4.51); Absolute Neutrophil Count 13.3 X10^3/uL (2.0-7.7); Basophil# 0.03 X10^3/uL; Basophil% 0.2 % (0-1); Hemoglobin 12.2 g/dL (13.0-16.5); Lymphocyte # 0.48 X10^3/ul (0.83-4.51); Lymphocyte % 3.3 % (19-41); Mean Corp Hgb Conc 31.3 g/dL (32-36); Mean Corpuscular Hgb 27.2 pg (27.0-32.0); Mean Corpuscular Volume 86.9 fL (80-94); Mean Platelet Vol. 9.8 fl (6.2-12.0); Monocyte# 0.53 X10^3/uL; Monocyte% 3.7 % (0-10); NRBC Flagged by Analyzer 0 % (0-5); Neutrophil % 92.1 % (47-70); POSITIVE DIFFERENTIAL YES; Platelet Count 254 K/mm3 (150-450); RBC Distribution Width CV 16.4 % (11.6-14.6); RBC Distribution Width SD 52.2 fl (35.1-43.9); Red Blood Count 4.49 M/mm3 (4.6-6.2); White Blood Count 14.4 K/mm3 (4.4-11.0)
[2021-02-04 12:11] LABS: Differential Indicated SCAN CRITERIA MET
[2021-02-04 12:17] LABS: Anion Gap 6 (5-15); BUN 26 mg/dL (7-18); BUN/Creat Ratio 16.9 RATIO (10-20); Calcium,Total 8.7 mg/dL (8.5-10.1); Chloride 107 mmol/L (98-107); Creatinine, Serum 1.54 mg/dL (0.70-1.30); EST Glomerular Filtration Rate 46 mL/min (>60); Est Glom Filt Rate - Afr Amer 56 mL/min (>60); Estimated Creatinine Clearance 42.68 ml/min; Glucose 192 mg/dL (74-106); Potassium 4.7 mmol/L (3.5-5.1); Sodium Level 137 mmol/L (136-145)
--- NOTE | 2021-02-04 13:39 | EKG12_ITS ---
Test Reason : FALL Blood Pressure : / mmHG Vent. Rate : 087 BPM Atrial Rate : 087 BPM P-R Int : 192 ms QRS Dur : 132 ms QT Int : 400 ms P-R-T Axes : 000 113 006 degrees QTc Int : 481 ms Sinus rhythm with occasional Premature ventricular complexes Right bundle branch block Left posterior fascicular block Bifascicular block Abnormal ECG Confirmed by SAÚL JENSEN, CYNDI ([id number]), makeup editor LEONORA COLVIN ([id number]) on 02/10/2021 10:04:06 AM Referred By: KANE Confirmed By:CYNDI HAYS MD
--- NOTE | 2021-02-04 13:45 | NURSING ---
[facility] AND [facility]ESS[facility] FOR [facility]
[2021-02-04] MEDS: Morphine 2 MG/ML Syringe IV (13:54)
--- NOTE | 2021-02-04 15:12 | ECHOD_ITS ---
Reason For Study: PRE-OP Procedure This was a 2D Doppler, Color Flow transthoracic echocardiogram. The study was technically difficult. Exam performed portable in patient room. Left Ventricle Normal LV size. The estimated ejection fraction is 45 %. Stage 1 diastolic dysfunction. No regional wall motion abnormalities noted. Right Ventricle Normal RV size. Normal systolic function. Atria Normal left atrium. Normal right atrium. Mitral Valve There is mild to moderate mitral annular calcification. Tricuspid Valve Normal tricuspid valve. Aortic Valve Trisinus/trileaflet aortic valve. Mild focal aortic valve calcification. Mild aortic stenosis. MMode/2D Measurements & Calculations LVIDd: 4.9 cm IVSd: 0.95 cm LVOT diam: 2.0 cm LVIDs: 4.0 cm LVPWd: 1.0 cm RVDd: 3.8 cm FS: 19.2 % LVOT area: 3.3 cm2 Ao root diam: 3.2 cm LAV(MOD-bp): 54.9 ml LA A4 area: 19.9 cm2 LAV(MOD-bp) Indexed: 24.7 ml/m2 LAV(MOD-sp2): 51.4 ml LAV(MOD-sp4): 55.3 ml LA dimension(2D): 3.8 cm RA A4 area: 20.7 cm2 Time Measurements MV dec time: 0.23 sec Doppler Measurements & Calculations MV E max lawrence: 96.7 cm/sec Lat Peak E' Lawrence: 7.3 cm/sec Med Peak E' Lawrence: 6.5 cm/sec MV A max lawrence: 114.6 cm/sec E/E' lat: 13.3 E/E' med: 14.8 MV E/A: 0.84 MV V2 max: 134.1 cm/sec Ao V2 max: 157.2 cm/sec LV V1 max: 77.9 cm/sec MV max P.2 mmHg Ao max P.9 mmHg LV V1 max P.4 mmHg MV V2 mean: 94.6 cm/sec Ao V2 mean: 118.7 cm/sec LV V1 mean P.4 mmHg MV mean P.9 mmHg Ao mean P.1 mmHg LV V1 mean: 56.8 cm/sec MV V2 VTI: 36.2 cm Ao V2 VTI: 35.2 cm LV V1 VTI: 17.5 cm MVA(VTI): 1.6 cm2 MARIELLE(I,D): 1.6 cm2 MARIELLE(V,D): 1.6 cm2 SV(LVOT): 57.4 ml ECHO/Echo Complete Interpretation Summary Normal LV size. The estimated ejection fraction is 45 %. There is mild to moderate mitral annular calcification. Mild focal aortic valve calcification. Stage 1 diastolic dysfunction. Ordering Physician: Tony Caputo Referring Physician: [facility] Performed By: Adelina Calderon, RDCS, RVT
[2021-02-04] MEDS: 0.9% Normal Saline 1,000 ML 75 ML IV (15:23)
[2021-02-04 15:36] LABS: Bedside Glucose 200 mg/dL (70-110)
[2021-02-04] MEDS: Insulin Lispro 100 UNIT/ML INSULN.PEN SC ×2 (16:01→23:01)
[2021-02-04] MEDS: Morphine 4 MG/ML Syringe IV (16:02)
[2021-02-04] MEDS: glipiZIDE 5 MG Tablet PO (16:07)
--- NOTE | 2021-02-04 16:34 | HP.PCM.HOS_ITS ---
HPI - General General Date of Admission: 02/04/21 Date of Service: 02/04/21 Chief Complaint: Right hip fracture HPI Narrative SARAH FREEMAN, is a 85 M who presents to the urgency room at [facility] from an extended care facility at which she resides, patient had a fall which was unwitnessed this morning at 5 AM and had x-rays of his right hip due to complaints of right hip pain following the fall. The hip x-ray that was done at the alf showed a right hip fracture and the patient was transferred in for evaluation at the emergency room here at [facility]. Work-up of the patient here included repeating the x-ray of the right hip which showed a nondisplaced femoral neck fracture on the right, patient had a CT of the brain which showed involutional changes. Labs obtained on the patient sh owed an elevated white blood cell count 14.4, creatinine was 1.54, BUN was 26. Glucose was 192. Patient will be admitted for a right femoral neck fracture, I talked with his daughter by phone and his daughter who is his POA due to the fact the patient has dementia, wishes the fracture to be repaired so that the patient can ambulate. I also talked to Dr. Davis [facility] Medical History (Updated 02/04/21 @ 15:[address] Abdiel Estrada DO) CAD (coronary artery disease) Chronic anemia Chronic pain COPD (chronic obstructive pulmonary disease) Dementia Depression Diabetes Encephalopathy GERD (gastroesophageal reflux disease) Hip fx Hypercholesteremia Hyperlipemia Hypertension Irregular heart beat Kidney disease Myocardial infarct TIA (transient ischemic attack) Home Medications atorvastatin 40 mg PO QHS 02/17/16 [History Last Taken 12/11/17] clopidogrel 75 mg PO DAILY 02/17/16 [History Last Taken 12/12/17] isosorbide mononitrate 30 mg PO DAILY 02/17/16 [History Last Taken Unknown] metoprolol tartrate 25 mg PO BID 02/17/16 [History Last Taken Unknown] acetaminophen 500 mg PO Q6H PRN PRN 12/12/17 [History Last Taken Unknown] glipizide 5 mg PO BID 12/12/17 [History Last Taken 12/12/17] lisinopril [Zestril] 5 mg PO QHS 12/12/17 [History Last Taken Unknown] alogliptin 12.5 mg PO DAILY 12/09/20 [History Last Taken Unknown] cholecalciferol (vitamin D3) [Vitamin D3] 125 mcg PO DAILY 12/09/20 [History Last Taken Unknown] gabapentin 100 mg PO LUNCH 12/09/20 [History Last Taken Unknown] gabapentin 200 mg PO BID 12/09/20 [History Last Taken Unknown] ipratropium-albuterol [DuoNeb] 3 ml INHALATION Q6H PRN 02/04/21 [History Last Taken Unknown] pantoprazole 40 mg PO DAILY 02/04/21 [History Last Taken Unknown] sertraline [Zoloft] 50 mg PO DAILY 02/04/21 [History Last Taken Unknown] Allergy/AdvReac Type Severity Reaction Status Date / Time venom-honey bee Allergy Hives Verified 02/04/21 11:05 [bee venom (honey bee)] Family History Mother Heart disease Father Heart disease Surgical History Hx of CABG Social History household members: none housing: house Smoking Status: Current every day smoker tobacco type: cigarettes Tobacco: How many years used: 70 alcohol intake: never substance use type: does not use ROS ROS Narrative Review of systems was unobtainable due to patient dementia Review of Systems ROS Unobtainable: due to mental status Vital Signs Vital Signs Vital Signs: 02/04/21 10:57 02/04/21 12:01 02/04/21 13:12 Temperature 99.7 F H Temperature Source Oral Pulse Rate 100 92 Respiratory Rate 16 24 H Respiratory Effort Respiratory Depth Respiratory Pattern Blood Pressure 140/87 H 140/69 H 140/85 H Blood Pressure Mean 104 92 103 Blood Pressure Source Blood Pressure Position Blood Pressure Location Pulse Ox 98 98 Oxygen Delivery Method Nasal Cannula Nasal Cannula Oxygen Flow Rate (L/min) 3 3 02/04/21 13:47 02/04/21 15:04 02/04/21 15:09 Temperature 99.4 F H 98.9 F Temperature Source Temporal Oral Pulse Rate 88 95 Respiratory Rate 18 16 Respiratory Effort Normal Respiratory Depth Normal Respiratory Pattern Normal Blood Pressure 115/81 H 160/93 H Blood Pressure Mean 92 115 Blood Pressure Source Monitor Blood Pressure Position Semi-Fowlers Blood Pressure Location Right Arm Pulse Ox 96 97 Oxygen Delivery Method Nasal Cannula Nasal Cannula Nasal Cannula Oxygen Flow Rate (L/min) 3 3 3 Weight Weight: 93.44 kg Body Mass Index (BMI) 25.7 Physical Exam Const alert and no apparent distress General Appearance: cooperative Orientation / Consciousness: confused and disoriented HEENT normocephalic, head/scalp atraumatic and hearing grossly normal bilaterally Eyes PERRL, EOMs intact bilaterally and conjunctivae normal Neck no lymphadenopathy, supple, no JVD and no carotid bruits Resp normal respiratory effort, no retractions, no use of accessory muscles and clear to auscultation bilaterally Cardio regular rate, regular rhythm, S1 normal heart sound, S2 normal heart sound, no murmurs and no rub GI normal to inspection, nondistended, normoactive bowel sounds, soft to palpation, non-tender and non-distended Extremity no clubbing, cyanosis or edema Extremity Narrative: Right leg is shortened and externally rotated, right hip is tender to palpation Skin no rashes or lesions noted, skin turgor normal and no jaundice Neuro CN's II-XII intact bilaterally Sensorium / Orientation: awake and alert Psych Psych Narrative: Patient is alert but confused Results Lab / Micro Data Result Diagrams: 02/04/21 11:40 02/04/21 11:40 Labs: Laboratory Results - last 24 hr 02/04/21 11:10: Blood Type O POSITIVE, Antibody Screen NEGATIVE 02/04/21 11:40: WBC 14.4 H, RBC 4.49 L, Hgb 12.2 L, Hct 39.0 L, MCV 86.9, MCH 27.2, MCHC 31.3 L, RDW Std Deviation 52.2 H, RDW Coeff of Jael 16.4 H, Plt Count 254, MPV 9.8, Immature Gran % (Auto) 0.700, Neut % (Auto) 92.1 H, Lymph % (Auto) 3.3 L, [place] % (Auto) 3.7, Eos % (Auto) 0.0, Baso % (Auto) 0.2, Absolute Neuts (auto) 13.3 H, Absolute Lymphs (auto) 0.48 L, Nucleated RBC % 0, Differential Comment COMMENT 02/04/21 11:40: Sodium 137, Potassium 4.7, Chloride 107, Carbon Dioxide 24.0, Anion Gap 6, BUN 26 H, Creatinine 1.54 H, Estim Creat Clear Calc 42.68, Est GFR (MDRD) Af Amer 56 L, Est GFR (MDRD) Non-Af 46 L, BUN/Creatinine Ratio 16.9, Glucose 192 H, Calcium 8.7 02/04/21 15:28: POC Glucose 200 H Micro: Microbiology 02/04/21 15:15 Nasal Secretion SARS-CoV-2 Antigen (Rapid) - Final 02/04/21 12:00 Nasal Secretion SARS-CoV-2 Antigen (Rapid) - Final Radiology Impression Brain CT 02/04/21 11:55 IMPRESSION: Chronic involutional changes of the brain. Electronically Signed: Rikki Hastings MD at 12:27 EDT , Service support , Hip/Pelvis X-Ray 02/04/21 11:55 IMPRESSION: Nondisplaced transverse fracture at the base of the right femoral neck. Marked degree of osteoarthritis of the right hip joint as described. Avascular necrosis should be ruled out. Electronically Signed: Rikki Hastings MD at 12:39 EDT , Service support , Assessment & Plan Assessment/Plan (1) Femoral neck fracture: PLAN: 1. Right femoral neck fracture secondary to osteoporosis-patient will be admitted to [facility] 3, he will be seen in consultation by orthopedic surgery, I have elected to obtain an echocardiogram and the patient due to his past history of coronary artery disease (patient had quadruple bypass in 2010), according to the patient's daughter, he has had no ongoing cardiac issues to her knowledge since that time. I will also obtain an EKG. I suspect patient will be stable for surgery, orthopedic surgery wants to wait 48 hours after his last dose of Plavix which he had this morning at the alf. #2 type 2 diabetes-blood sugars will be monitored, patient is on oral medications at the alf, these will be continued here #3 essential hypertension #4 stage IIIa chronic kidney disease secondary to type 2 diabetes #5 Alzheimer's dementia #6 hyperlipidemia Patient is a DNR comfort care only, I explained to his daughter that this will be reversed during the time of his surgery.
--- NOTE | 2021-02-04 16:43 | CON.PCM_ITS ---
HPI Consult Data Date of Consult: 02/04/21 HPI Narrative HPI Narrative: SARAH FREEMAN, is a 85 M who presents status post fall patient is demented cannot follow commands. Or provide any verbal feedback. Spoke with daughter who is the power of claims attorney and we did discuss the fracture if she would like surgical fixation to be performed for pain control. Risk benefits reviewed patient is consented by the daughter verbally with witness nursing for right hip hemiarthroplasty tomorrow morning 7:30am there is risk of increased bleeding with Plavix use. [facility] Medical History (Updated 02/04/21 @ 15:[address] Abdiel Estrada, DO) CAD (coronary artery disease) Chronic anemia Chronic pain COPD (chronic obstructive pulmonary disease) Dementia Depression Diabetes Encephalopathy GERD (gastroesophageal reflux disease) Hip fx Hypercholesteremia Hyperlipemia Hypertension Irregular heart beat Kidney disease Myocardial infarct TIA (transient ischemic attack) Home Medications atorvastatin 40 mg PO QHS 02/17/16 [History Last Taken 12/11/17] clopidogrel 75 mg PO DAILY 02/17/16 [History Last Taken 12/12/17] isosorbide mononitrate 30 mg PO DAILY 02/17/16 [History Last Taken Unknown] metoprolol tartrate 25 mg PO BID 02/17/16 [History Last Taken Unknown] acetaminophen 500 mg PO Q6H PRN PRN 12/12/17 [History Last Taken Unknown] glipizide 5 mg PO BID 12/12/17 [History Last Taken 12/12/17] lisinopril [Zestril] 5 mg PO QHS 12/12/17 [History Last Taken Unknown] alogliptin 12.5 mg PO DAILY 12/09/20 [History Last Taken Unknown] cholecalciferol (vitamin D3) [Vitamin D3] 125 mcg PO DAILY 12/09/20 [History Last Taken Unknown] gabapentin 100 mg PO LUNCH 12/09/20 [History Last Taken Unknown] gabapentin 200 mg PO BID 12/09/20 [History Last Taken Unknown] ipratropium-albuterol [DuoNeb] 3 ml INHALATION Q6H PRN 02/04/21 [History Last Taken Unknown] pantoprazole 40 mg PO DAILY 02/04/21 [History Last Taken Unknown] sertraline [Zoloft] 50 mg PO DAILY 02/04/21 [History Last Taken Unknown] Allergy/AdvReac Type Severity Reaction Status Date / Time venom-honey bee Allergy Hives Verified 02/04/21 11:05 [bee venom (honey bee)] Family History Mother Heart disease Father Heart disease Surgical History Hx of CABG Social History household members: none housing: house Smoking Status: Current every day smoker tobacco type: cigarettes Tobacco: How many years used: 70 alcohol intake: never substance use type: does not use Physical Exam Const no apparent distress; Negative for alert, oriented x3, healthy appearing or well nourished General Appearance: uncooperative and ill appearing Orientation / Consciousness: lethargic Extremity Extremity Narrative: Right lower extremity with palpable pedal pulses he is unable to comply with motor examination compartments soft Lab / Micro Data Result Diagrams: 02/04/21 11:40 02/04/21 11:40 Labs: Laboratory Results - last 24 hr 02/04/21 11:10: Blood Type O POSITIVE, Antibody Screen NEGATIVE 02/04/21 11:40: WBC 14.4 H, RBC 4.49 L, Hgb 12.2 L, Hct 39.0 L, MCV 86.9, MCH 27.2, MCHC 31.3 L, RDW Std Deviation 52.2 H, RDW Coeff of Jael 16.4 H, Plt Count 254, MPV 9.8, Immature Gran % (Auto) 0.700, Neut % (Auto) 92.1 H, Lymph % (Auto) 3.3 L, [place] % (Auto) 3.7, Eos % (Auto) 0.0, Baso % (Auto) 0.2, Absolute Neuts (auto) 13.3 H, Absolute Lymphs (auto) 0.48 L, Nucleated RBC % 0, Differential Comment COMMENT 02/04/21 11:40: Sodium 137, Potassium 4.7, Chloride 107, Carbon Dioxide 24.0, A nion Gap 6, BUN 26 H, Creatinine 1.54 H, Estim Creat Clear Calc 42.68, Est GFR (MDRD) Af Amer 56 L, Est GFR (MDRD) Non-Af 46 L, BUN/Creatinine Ratio 16.9, Glucose 192 H, Calcium 8.7 02/04/21 15:28: POC Glucose 200 H Micro: Microbiology 02/04/21 15:15 Nasal Secretion SARS-CoV-2 Antigen (Rapid) - Final 02/04/21 12:00 Nasal Secretion SARS-CoV-2 Antigen (Rapid) - Final Radiology Impression Brain CT 02/04/21 11:55 IMPRESSION: Chronic involutional changes of the brain. Electronically Signed: Rikki Hastings MD at 12:27 EDT , Service support , Hip/Pelvis X-Ray 02/04/21 11:55 IMPRESSION: Nondisplaced transverse fracture at the base of the right femoral neck. Marked degree of osteoarthritis of the right hip joint as described. Avascular necrosis should be ruled out. Electronically Signed: Rikki Hastings MD at 12:39 EDT , Service support ,
[2021-02-04] MEDS: Ipratropium/Albuterol Sulfate 3 ML AMPUL.NEB INHALATION (18:35)
--- NOTE | 2021-02-04 19:35 | NURSING ---
Spoke w/ Dr. Davis states to make pt NPO after 0000, cancel ECHO and hold heparin tonight and in the am.
[2021-02-04] MEDS: Metoprolol Tartrate 25 MG Tablet PO (23:03)
[2021-02-04] MEDS: Gabapentin 100 MG Capsule 200 MG PO (23:03)
[2021-02-04] MEDS: Atorvastatin Calcium 40 MG Tablet PO (23:04)
[2021-02-04] MEDS: Lisinopril 5 MG Tablet PO (23:04)
[2021-02-04 23:11] LABS: Bedside Glucose 199 mg/dL (70-110)
[2021-02-05] VITALS (19 sets, daily range): BP systolic 102–145; BP diastolic 50–84; PULSE 60–90; RESP 16–20; TEMP 36.5–37.7; O2SAT 2–98; BMI 25.7
[2021-02-05] MEDS: Ipratropium/Albuterol Sulfate 3 ML AMPUL.NEB INHALATION ×3 (01:49→19:05)
[2021-02-05] MEDS: 0.9% Normal Saline 1,000 ML 75 ML IV (04:42)
--- NOTE | 2021-02-05 05:11 | RAD_ITS ---
STUDY: X-RAY CHEST REASON FOR EXAM: Male, 85 years old. pre-op TECHNIQUE: Single AP portable view of the chest. COMPARISON: 12/09/2020. 12/12/2017 FINDINGS: Stable hyperinflation and emphysematous changes, stable left pleural plaque of the left mid and upper parenchyma, opacification of portion of the left cardiac contour and minimal blunting of the costophrenic angles. There is increased interstitial prominence There is no demonstrated pleural abnormality. Sternal cerclage wires are present from a prior sternotomy. Normal mediastinum and yosi. Normal visualized pulmonary arteries. There is atherosclerotic calcification of the aortic arch with tortuosity. There is demineralization of the osseous structures. Normal visualized ribs, clavicles, and shoulders. There is no demonstrated abnormality of the visualized soft tissue structures of the upper abdomen. RAD/Chest 1 View (Portable) IMPRESSION: Emphysema, postsurgical changes, pleural plaque formation, tethering along the left cardiac contour, osteopenia and degenerative changes are stable findings. Increased interstitial prominence since previous exams. An inflammatory process or early vascular congestion may be present. Electronically Signed: Rosita Mckeon MD at 6:30 EDT , Service support ,
[2021-02-05] MEDS: Metoprolol Tartrate 25 MG Tablet PO ×2 (05:33→21:38)
[2021-02-05 05:46] LABS: Bedside Glucose 128 mg/dL (70-110)
--- NOTE | 2021-02-05 06:50 | NURSING ---
report given to andrew YAP from .
--- NOTE | 2021-02-05 07:30 | FEM_PTH ---
PATIENT: SARAH FREEMAN LOC: MS3 U#:[id number] AGE/SX: 85/M ROOM: [facility] [place]02/04/[address]: Dr. Ewa Schulte DO : 1935 BED: 1 DIS: 02/06/2021 SPEC #: [id number] RECD: 02/05/21 10:00 STATUS: JUANCARLOS RELindsey #: [id number] DIANA: 02/05/21 07:[address]: Abdiel Davis DEPT: SURGICAL PATHOLOGY RECD BY: Usha Yi ENTERED: 02/05/21 10:36 SP TYPE: FEM HEAD OTHR DR: DO Dr. Ewa Snow DO Dr. Mark Tereletsky, [facility] Tissues: Femoral region, NOS Procedures: Decalcification bone/plaque Surgery Specimen Level IV Comments: @ Ordering doctor for DEC edited from to DR.JBORRU Cornelia ALEJANDRO at 02/05/21 1159 @ Ordering doctor for SUV edited from to DR.JBORRU Cornelia ALEJANDRO at 02/05/21 1159 @ Submitting doctor edited from to DR.JBORRU Cornelia ALEJANDRO at 02/05/21 1159 HEADER OPERATION: Right hip hemiarthroplasty PRE-OP DIAGNOSIS: Nondisplaced transverse fracture at the base of right femoral neck TISSUE SUBMITTED: Right femoral head MICROSCOPIC DIAGNOSIS Bone and soft tissue of right hip, total hip resection: Severe degenerative joint disease. AM:tylor 02/10/2021 MICROSCOPIC DESCRIPTION Slides are reviewed. GROSS DESCRIPTION Received is one container labeled with the patient's name and designated right femoral head. The specimen consists of a femoral head measuring 5.5 x 6 x 5 cm. The articular surface displays prominent osteophyte formation, eburnation and bone erosion. Resection margin is irregular and hemorrhagic. Also present in the specimen container are two pieces of bone measuring in aggregate 5 x 4 x 1 cm. Retirement Officer sections are submitted in three cassettes after decalcification as follows: 1 - detached pieces of bone, 2 & 3 - femoral head. / ADRIENNE:tylor 02/05/21 TC:5 CPT: 68793, 84195
--- NOTE | 2021-02-05 09:09 | RAD_ITS ---
STUDY: X-RAY - PELVIS AND RIGHT HIP REASON FOR EXAM: Male, 85 years old. Post Op -- AP both hips on single katlyn/lateral of op hip PACU TECHNIQUE: 2 views of the pelvis and hip. COMPARISON: None. FINDINGS: The patient is status post right total hip replacement. There is good alignment. Postoperative soft tissue changes. RAD/Hip Min 2 Views (Portable) IMPRESSION: The patient is status post right total hip replacement. There is good alignment. Postoperative soft tissue changes. Electronically Signed: Rikki Hastings MD at 9:40 EDT , Service support ,
--- NOTE | 2021-02-05 09:11 | PCM.PN.HOSP ---
Subjective Subjective Patient suffered an unwitnessed fall yesterday morning at 5 AM and x-rays of the hip show fracture. Patient was taken to the OR today for surgical repair. Patient has significant dementia at baseline. Discussion with the daughter yesterday led to the decision for surgical repair for pain control. Patient is currently sitting up in bed eating a clear liquid diet, appears comfortable. Has no complaints. Objective Data Objective Data Vital Signs: Vital Signs Temp Pulse Resp BP Pulse Ox 98.1 F 89 18 145/67 H 94 02/05/21 05:40 02/05/21 05:40 02/05/21 05:40 02/05/21 05:40 02/05/21 05:40 Oxygen Flow Rate (L/min) 3 Oxygen Delivery Method Nasal Cannula Weight: 93.44 kg Body Mass Index (BMI) 25.7 Intake & Output: Intake and Output for Last 24 Hours 02/03/21 02/04/21 02/05/21 23:59 23:59 23:59 Intake Total 100 / 100 998.75 / 998.75 Output Total 350 / 350 Balance 100 / 100 648.75 / 648.75 Lab / Micro Data Result Diagrams: 02/04/21 11:40 02/04/21 11:40 Labs: Laboratory Results - last 24 hr 02/04/21 11:10: Blood Type O POSITIVE, Antibody Screen NEGATIVE 02/04/21 11:40: WBC 14.4 H, RBC 4.49 L, Hgb 12.2 L, Hct 39.0 L, MCV 86.9, MCH 27.2, MCHC 31.3 L, RDW Std Deviation 52.2 H, RDW Coeff of Jael 16.4 H, Plt Count 254, MPV 9.8, Immature Gran % (Auto) 0.700, Neut % (Auto) 92.1 H, Lymph % (Auto) 3.3 L, [place] % (Auto) 3.7, Eos % (Auto) 0.0, Baso % (Auto) 0.2, Absolute Neuts (auto) 13.3 H, Absolute Lymphs (auto) 0.48 L, Nucleated RBC % 0, Differential Comment COMMENT 02/04/21 11:40: Sodium 137, Potassium 4.7, Chloride 107, Carbon Dioxide 24.0, Anion Gap 6, BUN 26 H, Creatinine 1.54 H, Estim Creat Clear Calc 42.68, Est GFR (MDRD) Af Amer 56 L, Est GFR (MDRD) Non-Af 46 L, BUN/Creatinine Ratio 16.9, Glucose 192 H, Calcium 8.7 02/04/21 15:28: POC Glucose 200 H 02/04/21 23:00: POC Glucose 199 H 02/05/21 05:30: POC Glucose 128 H Micro: Microbiology 02/04/21 15:15 Nasal Secretion SARS-CoV-2 Antigen (Rapid) - Final 02/04/21 12:00 Nasal Secretion SARS-CoV-2 Antigen (Rapid) - Final Radiography Diagnostic Testing: Radiology Impression Brain CT 02/04/21 11:55 IMPRESSION: Chronic involutional changes of the brain. Electronically Signed: Rikki Hastings MD at 12:27 EDT , Service support , Hip/Pelvis X-Ray 02/04/21 11:55 IMPRESSION: Nondisplaced transverse fracture at the base of the right femoral neck. Marked degree of osteoarthritis of the right hip joint as described. Avascular necrosis should be ruled out. Electronically Signed: Rikki Hastings MD at 12:39 EDT , Service support , Echocardiogram 02/04/21 15:12 Interpretation Summary Normal LV size. The estimated ejection fraction is 45 %. There is mild to moderate mitral annular calcification. Mild focal aortic valve calcification. Stage 1 diastolic dysfunction. Ordering Physician: Tony Caputo Referring Physician: [facility] Performed By: Adelina Calderon, JAREDCS, RVT Chest X-Ray 02/05/21 05:11 IMPRESSION: Emphysema, postsurgical changes, pleural plaque formation, tethering along the left cardiac contour, osteopenia and degenerative changes are stable findings. Increased interstitial prominence since previous exams. An inflammatory process or early vascular congestion may be present. Electronically Signed: Rosita Mckeon MD at 6:30 EDT , Service support , Physical Exam Const alert and no apparent distress Constitutional Narrative: Elderly white male sitting up in bed feeding himself a clear liquid diet, appears comfortable, talk socially but overall minimal interaction and exam is limited secondary to dementia HEENT head/scalp atraumatic and moist oral mucous membranes Head and Scalp: normocephalic Resp normal respiratory effort, no retractions, no use of accessory muscles and clear to auscultation bilaterally Resp Narrative: Diminished but clear Cardio regular rate, regular rhythm, S1 normal heart sound, S2 normal heart sound, no murmurs, no rub, no gallops, no clicks and no JVD GI normal to inspection, nondistended, normoactive bowel sounds, soft to palpation, non-tender, non-distended and hepatosplenomegaly Extremity no clubbing, cyanosis or edema Extremity Narrative: MARY hose bilateral lower extremities with polar ice on right hip Peripheral Pulses: Yes pulses 2+ throughout Neuro CN's II-XII intact bilaterally Neuro Narrative: Moves all extremities except postoperative surgical hip Sensorium / Orientation: awake and alert Psych Psych Narrative: Pleasantly confused Assessment & Plan Assessment/Plan (1) Femoral neck fracture: (2) Leukocytosis: (3) Stage III chronic kidney disease: (4) Coronary artery disease: (5) Hypertension: (6) Type 2 diabetes mellitus: (7) Hyperlipidemia: PLAN: Right nondisplaced femoral neck fracture -OR today with Dr. Davis for right hip hemiarthroplasty -Weightbearing per orthopedic surgery -DVT prophylaxis per orthopedic surgery -PT OT consultation -Pain medication -Bowel regimen Leukocytosis -No signs of infection -We will assess with a repeat tomorrow -Suspect reactive -If remains elevated will check UA Chronic normocytic anemia -Etiology unclear -Suspect related to chronic disease -Anemia is mild with a hemoglobin of 12.2 on the day of admission -Repeat CBC postoperatively tomorrow morning -Anticipate drop in hemoglobin with surgery and fluids CKD stage IIIb -Serum creatinine appears stable -Baseline serum creatinine appears to fluctuate some but looks to be between 1.5 and 1.9 -Repeat BMP in a.m. to monitor in the perioperative period -Avoid nephrotoxins as able CAD/HTN/HPL -Aspirin and Plavix on hold for now -Restart when okay with surgery -Continue atorvastatin 40 mg nightly -Continue lisinopril 5 mg nightly -Continue Imdur -Continue metoprolol 25 mg twice daily DM-2 -Hold glipizide -Continue Tradjenta -SSI -Accu-Cheks -Goal blood sugars 140-180 Diabetic neuropathy -Continue gabapentin as ordered GERD -Continue PPI Depression -Continue sertraline DVT prophylaxis -Recommendations per orthopedic surgery -Apixaban 2.5 mg twice daily ordered at this time CODE STATUS -DNR CC Charges/Coding Visit Charges Inpatient E&M: 05825 Subs Hosp L2
--- NOTE | 2021-02-05 09:13 | OP.PCM_ITS ---
Report of Operation Date of Procedure: 02/05/21 Description of Surgical Findings:: Preoperative diagnosis: Right hip femoral neck fracture displaced Postoperative diagnosis: Same Procedure: Right hip hemiarthroplasty Implants: Allyn Accolade II stem size 6 132 degree neck angle 0 neck length 61 mm outer diameter bipolar head Anesthesia: General l EBL: 75 cc Complications: None Condition: Stable to PACU Indication for procedure: This is a 85-year-old male patient with dementia status post ground-level fall fracture right femoral neck. plans for definitive hemiarthroplasty were discussed including risks benefits and alternatives of the procedure were reviewed with the patient and patient's daughter Caridad power of collections attorney including risk of bleeding infection nerve artery tissue damage need for further surgery continue pain postoperative hip precaution restrictions leg length discrepancy and dislocation. Procedure: Patient was met in the preoperative holding area once again the operative extremity was identified by both patient and physician and was marked. Patient was met by anesthesia and brought to the operating room where anesthesia was started . The patient was then positioned in the lateral decubitus position on a well-padded pegboard with an axillary roll. All bony prominences were checked and padded. The patient was prepped and draped in the usual sterile fashion. A timeout was called to ensure the proper patient procedure and extremity were being contemplated. Anatomic landmarks were palpated and marked for a standard posterior lateral approach. A timeout was called to ensure the proper patient procedure and extremity were being contemplated. A 10 blade scalpel was used to make a posterior incision through the skin and subcutaneous tissue. In retractors were used and electrocautery was used to maintain meticulous hemostasis and dissect full-thickness flaps until the gluteal fascia was reached. The gluteal fascia was incised in line with the gluteal fibers. The bursal tissue was then freed from the underside and a Charnley retractor was placed. The fatpad was elevated off of the external rotators with electrocautery and the external rotators were dissected off of the greater trochanter including the piriformis and were tagged with #1 Ethibond for later repair. The joint capsule opened with posterior trapdoor technique. A femoral neck cutting guide was used to kip the neck with a Bovie and an oscillating saw was used to complete the femoral neck cut. the fracture was visualized and with the use of a corkscrew and a skid the femoral head was removed and sized. We then trialed with the matching sizes . Hohmann was placed around the lesser trochanter. A femoral elevator was used. As well as a pointed wide Hohmann around the lesser trochanter and a Hohmann to help retract the gluteus medius. A box chisel was used to remove excess lateral neck followed by a canal finder and a lateralizing reamer. This was followed by sequential broaches. Attention was made of the version within the canal. Once the final broach was seated we then trialed and reduced the hip it was determined that a 132 degree neck angle with a 0 neck length was the appropriate size. We then checked stability with shuck testing as well as flexion and interminal rotation then proceeded with hip extension and checked leg lengths at the knees and heels. At this point trials were removed. The femoral stem was inserted. We re-trialed and then proceeded to impact the femoral head onto the Chapo taper. We then surgically reduce the hip check stability again and leg lengths and were satisfied. irricept rinse was allowed to sit for 1 minutes while everyone changed their gloves. Thorough irrigation was performed. Followed by closure of the external rotators with #2 FiberWire followed by closure of gluteal fascia with #1 Ethibond. 0 Vicryl fat stitches and 2-0 Vicryl subcutaneous stitches and april in the skin. Dressing was applied in the form of silverlon dressing and an abduction pillow was placed. Patient tolerated the procedure well there was no intraoperative complications all counts were correct and the patient was brought back to the PACU in stable condition
[2021-02-05] MEDS: Lactated Ringers 1,000 ML 100 ML IV ×2 (09:30→14:59)
--- NOTE | 2021-02-05 09:56 | PCM.PN.ORT ---
Subjective Subjective Postop in PACU patient awake no acute distress Objective Data Objective Data Vital Signs: Vital Signs Temp Pulse Resp BP Pulse Ox 98.3 F 90 20 H 131/82 H 97 02/05/21 09:15 02/05/21 09:15 02/05/21 09:15 02/05/21 09:15 02/05/21 09:15 Oxygen Flow Rate (L/min) 6 Oxygen Delivery Method Simple Mask Weight: 206 lb Body Mass Index (BMI) 25.7 Intake & Output: Intake and Output for Last 24 Hours 02/03/21 02/04/21 02/05/21 23:59 23:59 23:59 Intake Total 100 / 100 998.75 / 998.75 Output Total 350 / 350 Balance 100 / 100 648.75 / 648.75 Lab / Micro Data Result Diagrams: 02/04/21 11:40 02/04/21 11:40 Labs: Laboratory Results - last 24 hr 02/04/21 11:10: Blood Type O POSITIVE, Antibody Screen NEGATIVE 02/04/21 11:40: WBC 14.4 H, RBC 4.49 L, Hgb 12.2 L, Hct 39.0 L, MCV 86.9, MCH 27.2, MCHC 31.3 L, RDW Std Deviation 52.2 H, RDW Coeff of Jael 16.4 H, Plt Count 254, MPV 9.8, Immature Gran % (Auto) 0.700, Neut % (Auto) 92.1 H, Lymph % (Auto) 3.3 L, [place] % (Auto) 3.7, Eos % (Auto) 0.0, Baso % (Auto) 0.2, Absolute Neuts (auto) 13.3 H, Absolute Lymphs (auto) 0.48 L, Nucleated RBC % 0, Differential Comment COMMENT 02/04/21 11:40: Sodium 137, Potassium 4.7, Chloride 107, Carbon Dioxide 24.0, Anion Gap 6, BUN 26 H, Creatinine 1.54 H, Estim Creat Clear Calc 42.68, Est GFR (MDRD) Af Amer 56 L, Est GFR (MDRD) Non-Af 46 L, BUN/Creatinine Ratio 16.9, Glucose 192 H, Calcium 8.7 02/04/21 15:28: POC Glucose 200 H 02/04/21 23:00: POC Glucose 199 H 02/05/21 05:30: POC Glucose 128 H Micro: Microbiology 02/04/21 15:15 Nasal Secretion SARS-CoV-2 Antigen (Rapid) - Final 02/04/21 12:00 Nasal Secretion SARS-CoV-2 Antigen (Rapid) - Final Radiography Diagnostic Testing: Radiology Impression Brain CT 02/04/21 11:55 IMPRESSION: Chronic involutional changes of the brain. Electronically Signed: Rikki Hastings MD at 12:27 EDT , Service support , Hip/Pelvis X-Ray 02/04/21 11:55 IMPRESSION: Nondisplaced transverse fracture at the base of the right femoral neck. Marked degree of osteoarthritis of the right hip joint as described. Avascular necrosis should be ruled out. Electronically Signed: Rikki Hastings MD at 12:39 EDT , Service support , Echocardiogram 02/04/21 15:12 Interpretation Summary Normal LV size. The estimated ejection fraction is 45 %. There is mild to moderate mitral annular calcification. Mild focal aortic valve calcification. Stage 1 diastolic dysfunction. Ordering Physician: Tony Caputo Referring Physician: [facility] Performed By: Adelina Calderon, IMELDA, RVT Chest X-Ray 02/05/21 05:11 IMPRESSION: Emphysema, postsurgical changes, pleural plaque formation, tethering along the left cardiac contour, osteopenia and degenerative changes are stable findings. Increased interstitial prominence since previous exams. An inflammatory process or early vascular congestion may be present. Electronically Signed: Rosita Mckeon MD at 6:30 EDT , Service support , Hip X-Ray 02/05/21 09:09 IMPRESSION: The patient is status post right total hip replacement. There is good alignment. Postoperative soft tissue changes. Electronically Signed: Rikki Hastings MD at 9:40 EDT , Service support , Physical Exam Const no apparent distress Extremity Extremity Narrative: Dressing on clean dry intact compartments soft palpable pedal pulses unable to comply with motor exam Assessment & Plan Assessment/Plan (1) Femoral neck fracture: QUALIFIERS: Encounter type: subsequent encounter Fracture type: closed Laterality: right Fracture healing: with routine healing Qualified Code(s): S72.001D - Fracture of unspecified part of neck of right femur, subsequent encounter for closed fracture with routine healing PLAN: Postop day #0 right hip hemiarthroplasty for femoral neck fracture PT OT weightbearing as tolerated c hip precautions Dressing to be undisturbed for 72 hours postoperatively then removed prior to for shower then shower daily if not showering daily should have incisional area clean daily with Betadine and dressing change daily at this point 2 pillows between knees while in bed Eliquis 2.5 mg twice daily for 3 weeks Prefer to hold Plavix while on Eliquis if okay with medical team [place] out in 14-17 days
[2021-02-05] MEDS: Cefazolin 1 GM/50 ML BAG IV ×2 (09:59→17:10)
--- NOTE | 2021-02-05 10:12 | CASEMGMT ---
Addendum entered by Becka Linder 02/05/21 11:22: REMY received call from Charity at [facility] stating pt is skilled and is able to return when medically ready. REMY asked Charity about COVID test. If pt discharges back to [facility] tomorrow (Monday), pt will not need a new COVID test, but if pt discharges back to [facility] Monday pt will need a new COVID test. REMY updated Charity that pt will likely return to [facility] this weekend. Charity states understanding.REMY reviewed chart, pt with dementia and is currently off the floor. REMY placed a call to pt's daughter Caridad and introduced self and role at [facility]. Caridad confirms pt is from [facility] and will return at discharge. REMY faxed clinicals to Charity at [facility]. REMY placed Green sheet, Transport forms, and COVID tool on pt's chart. Plan: Return to [facility] when medically cleared *If pt discharges to [facility] Monday, pt will NOT need a new COVID test but if pt discharges Monday, pt WILL need a new COVID test. Original Note: Social Work Note Pt is listed as being from [facility]. REMY placed a call to Charity at [facility] and left message regarding pt. SW waiting for call back. Becka Linder LEI MAKER, CORRECTION OFFICER SUPERVISOR
[2021-02-05 10:30] LABS: Bedside Glucose 155 mg/dL (70-110)
[2021-02-05] MEDS: Senna/Docusate Sodium 1 Tablet 2 TABLET PO ×2 (11:15→21:38)
[2021-02-05] MEDS: LINAGLIPTIN 5 MG TABLET PO (11:15)
[2021-02-05] MEDS: Pantoprazole Sodium 40 MG Tablet PO (11:15)
[2021-02-05] MEDS: Isosorbide Mononitrate 30 MG Tablet PO (11:15)
[2021-02-05] MEDS: Cholecalciferol (VIT D3) 25 MCG TABLET (1,000 UNITS) 125 MCG PO (11:15)
[2021-02-05] MEDS: Gabapentin 100 MG Capsule PO (11:16)
[2021-02-05] MEDS: Sertraline 50 MG Tablet PO (11:16)
[2021-02-05] MEDS: Insulin Lispro 100 UNIT/ML INSULN.PEN SC ×3 (11:27→21:38)
[2021-02-05 12:01] LABS: Bedside Glucose 152 mg/dL (70-110)
[2021-02-05 12:32] LABS: Absolute Neutrophil Count 13.8 X10^3/uL (2.0-7.7); Basophil# 0.06 X10^3/uL; Basophil% 0.4 % (0-1); Eosinophil# 0.03 X10^3/uL; Eosinophils% 0.2 % (0-5); Lymphocyte % 6.2 % (19-41); Mean Corp Hgb Conc 30.5 g/dL (32-36); Mean Corpuscular Hgb 27.9 pg (27.0-32.0); Mean Corpuscular Volume 91.4 fL (80-94); Mean Platelet Vol. 10.5 fl (6.2-12.0); Monocyte# 1.12 X10^3/uL; Monocyte% 6.9 % (0-10); NRBC Flagged by Analyzer 0 % (0-5); Neutrophil % 85.5 % (47-70); Platelet Count 235 K/mm3 (150-450); RBC Distribution Width CV 16.8 % (11.6-14.6); RBC Distribution Width SD 56.4 fl (35.1-43.9); Red Blood Count 4.05 M/mm3 (4.6-6.2); White Blood Count 16.1 K/mm3 (4.4-11.0)
[2021-02-05 13:09] LABS: Anion Gap 6 (5-15); BUN 29 mg/dL (7-18); BUN/Creat Ratio 17.8 RATIO (10-20); Calcium,Total 8.2 mg/dL (8.5-10.1); Chloride 109 mmol/L (98-107); Creatinine, Serum 1.63 mg/dL (0.70-1.30); EST Glomerular Filtration Rate 43 mL/min (>60); Est Glom Filt Rate - Afr Amer 52 mL/min (>60); Estimated Creatinine Clearance 40.32 ml/min; Glucose 200 mg/dL (74-106); Potassium 4.4 mmol/L (3.5-5.1); Sodium Level 136 mmol/L (136-145)
[2021-02-05 14:16] LABS: Hemoglobin 11.3 g/dL (13.0-16.5)
--- NOTE | 2021-02-05 16:08 | CASEMGMT ---
Attempted to return tc to Karrie at [facility] at [phone], no answer and no voicemail. Unable to leave message.
--- NOTE | 2021-02-05 17:00 | CASEMGMT ---
Social Work Note SW received call from Car at [facility] ([phone] ext: [phone]) requesting update on pt. REMY provided update, that pt had surgery today. Car states understanding. Becka Linder CIGAR PACKING EXAMINER, TELEHEALTH NURSE
[2021-02-05 17:15] LABS: Bedside Glucose 189 mg/dL (70-110)
[2021-02-05] MEDS: Acetaminophen 500 MG Tablet PO (20:14)
[2021-02-05] MEDS: Gabapentin 100 MG Capsule 200 MG PO (21:38)
[2021-02-05] MEDS: Atorvastatin Calcium 40 MG Tablet PO (21:38)
[2021-02-05] MEDS: Lisinopril 5 MG Tablet PO (21:38)
[2021-02-05 22:50] LABS: Bedside Glucose 189 mg/dL (70-110)
[2021-02-06] VITALS (11 sets, daily range): BP systolic 98–141; BP diastolic 59–98; PULSE 76–91; RESP 18–20; TEMP 36.5–37.2; O2SAT 94–98; BMI 25.7
[2021-02-06] MEDS: Lactated Ringers 1,000 ML 100 ML IV (01:25)
[2021-02-06] MEDS: Cefazolin 1 GM/50 ML BAG IV (01:31)
[2021-02-06] MEDS: Ipratropium/Albuterol Sulfate 3 ML AMPUL.NEB INHALATION ×4 (02:07→19:16)
[2021-02-06] MEDS: Insulin Lispro 100 UNIT/ML INSULN.PEN SC ×3 (06:13→16:06)
[2021-02-06 06:20] LABS: Bedside Glucose 182 mg/dL (70-110)
[2021-02-06] MEDS: APIXABAN 2.5 MG TABLET PO (06:21)
[2021-02-06] MEDS: oxyCODONE 5 MG Tablet PO ×2 (08:08→16:04)
[2021-02-06] MEDS: Gabapentin 100 MG Capsule 200 MG PO (08:09)
[2021-02-06 08:30] LABS: Absolute Lymphocyte Count 1.26 X10^3/uL (0.83-4.51); Absolute Neutrophil Count 12.4 X10^3/uL (2.0-7.7); Basophil# 0.03 X10^3/uL; Basophil% 0.2 % (0-1); Eosinophil# 0.05 X10^3/uL; Eosinophils% 0.3 % (0-5); Hematocrit 32.2 % (40-54); Hemoglobin 9.9 g/dL (13.0-16.5); Lymphocyte # 1.26 X10^3/ul (0.83-4.51); Lymphocyte % 8.3 % (19-41); Mean Corp Hgb Conc 30.7 g/dL (32-36); Mean Corpuscular Hgb 27.3 pg (27.0-32.0); Mean Platelet Vol. 10.3 fl (6.2-12.0); Monocyte% 8.6 % (0-10); NRBC Flagged by Analyzer 0 % (0-5); Neutrophil # 12.44 X10^3/uL (2.7-7.7); Neutrophil % 82.1 % (47-70); Platelet Count 213 K/mm3 (150-450); RBC Distribution Width CV 16.5 % (11.6-14.6); RBC Distribution Width SD 53.8 fl (35.1-43.9); Red Blood Count 3.62 M/mm3 (4.6-6.2); White Blood Count 15.2 K/mm3 (4.4-11.0)
[2021-02-06 08:45] LABS: Anion Gap 9 (5-15); BUN 27 mg/dL (7-18); BUN/Creat Ratio 18.5 RATIO (10-20); Calcium,Total 8.2 mg/dL (8.5-10.1); Chloride 103 mmol/L (98-107); Creatinine, Serum 1.46 mg/dL (0.70-1.30); EST Glomerular Filtration Rate 49 mL/min (>60); Est Glom Filt Rate - Afr Amer 59 mL/min (>60); Estimated Creatinine Clearance 45.02 ml/min; Glucose 173 mg/dL (74-106); Potassium 4.3 mmol/L (3.5-5.1); Sodium Level 134 mmol/L (136-145)
[2021-02-06] MEDS: Pantoprazole Sodium 40 MG Tablet PO (10:37)
[2021-02-06] MEDS: Senna/Docusate Sodium 1 Tablet 2 TABLET PO (10:38)
[2021-02-06] MEDS: Isosorbide Mononitrate 30 MG Tablet PO (10:38)
[2021-02-06] MEDS: Sertraline 50 MG Tablet PO (10:39)
[2021-02-06] MEDS: Metoprolol Tartrate 25 MG Tablet PO (10:39)
[2021-02-06] MEDS: LINAGLIPTIN 5 MG TABLET PO (10:39)
[2021-02-06] MEDS: Cholecalciferol (VIT D3) 25 MCG TABLET (1,000 UNITS) 125 MCG PO (10:39)
[2021-02-06 11:04] LABS: Absolute Lymphocyte Count 0.89 X10^3/uL (0.83-4.51); Absolute Neutrophil Count 12.7 X10^3/uL (2.0-7.7); Basophil# 0.03 X10^3/uL; Basophil% 0.2 % (0-1); Eosinophil# 0.03 X10^3/uL; Eosinophils% 0.2 % (0-5); Hematocrit 30.6 % (40-54); Hemoglobin 9.5 g/dL (13.0-16.5); Lymphocyte # 0.89 X10^3/ul (0.83-4.51); Mean Corpuscular Hgb 27.8 pg (27.0-32.0); Mean Corpuscular Volume 89.5 fL (80-94); Mean Platelet Vol. 10.4 fl (6.2-12.0); Monocyte# 1.15 X10^3/uL; Monocyte% 7.7 % (0-10); NRBC Flagged by Analyzer 0 % (0-5); Neutrophil # 12.67 X10^3/uL (2.7-7.7); Neutrophil % 85.4 % (47-70); Platelet Count 196 K/mm3 (150-450); RBC Distribution Width CV 16.6 % (11.6-14.6); RBC Distribution Width SD 54.7 fl (35.1-43.9); Red Blood Count 3.42 M/mm3 (4.6-6.2); White Blood Count 14.9 K/mm3 (4.4-11.0)
[2021-02-06] MEDS: Gabapentin 100 MG Capsule PO (11:07)
[2021-02-06 11:15] LABS: Bedside Glucose 263 mg/dL (70-110)
--- NOTE | 2021-02-06 11:27 | PCM.PN.ORT ---
Subjective Subjective Postop in PACU patient awake no acute distress. Patient is alert with continued confusion. He does answer yes/no questions and states he has no current pains or problems. Objective Data Objective Data Vital Signs: Vital Signs Temp Pulse Resp BP Pulse Ox 98.0 F 91 18 141/98 H 98 02/06/21 09:22 02/06/21 10:39 02/06/21 09:23 02/06/21 10:39 02/06/21 09:22 Oxygen Flow Rate (L/min) 2 Oxygen Delivery Method Nasal Cannula Weight: 206 lb Body Mass Index (BMI) 25.7 Intake & Output: Intake and Output for Last 24 Hours 02/04/21 02/05/21 02/06/21 23:59 23:59 23:59 Intake Total 100 / 100 3877.08 / 3997.08 1753.33 / 1753.33 Output Total 350 / 350 Balance 100 / 100 3527.08 / 3647.08 1753.33 / 1753.33 Lab / Micro Data Result Diagrams: 02/06/21 10:52 02/06/21 08:06 Labs: Laboratory Results - last 24 hr 02/05/21 11:25: POC Glucose 152 H 02/05/21 11:57: WBC 16.1 H, RBC 4.05 L, Hgb 11.3 L, Hct 37.0 L, MCV 91.4 D, MCH 27.9, MCHC 30.5 L, RDW Std Deviation 56.4 H, RDW Coeff of Jael 16.8 H, Plt Count 235, MPV 10.5, Immature Gran % (Auto) 0.800, Neut % (Auto) 85.5 H, Lymph % (Auto) 6.2 L, [place] % (Auto) 6.9, Eos % (Auto) 0.2, Baso % (Auto) 0.4, Absolute Neuts (auto) 13.8 H, Absolute Lymphs (auto) 1.00, Nucleated RBC % 0 02/05/21 11:57: Sodium 136, Potassium 4.4, Chloride 109 H, Carbon Dioxide 21.0, Anion Gap 6, BUN 29 H, Creatinine 1.63 H, Estim Creat Clear Calc 40.32, Est GFR (MDRD) Af Amer 52 L, Est GFR (MDRD) Non-Af 43 L, BUN/Creatinine Ratio 17.8, Glucose 200 H, Calcium 8.2 L 02/05/21 17:08: POC Glucose 189 H 02/05/21 21:37: POC Glucose 189 H 02/06/21 06:12: POC Glucose 182 H 02/06/21 08:06: WBC 15.2 H, RBC 3.62 L, Hgb 9.9 L, Hct 32.2 L, MCV 89.0, MCH 27.3, MCHC 30.7 L, RDW Std Deviation 53.8 H, RDW Coeff of Jael 16.5 H, Plt Count 213, MPV 10.3, Immature Gran % (Auto) 0.500, Neut % (Auto) 82.1 H, Lymph % (Auto) 8.3 L, [place] % (Auto) 8.6, Eos % (Auto) 0.3, Baso % (Auto) 0.2, Absolute Neuts (auto) 12.4 H, Absolute Lymphs (auto) 1.26, Nucleated RBC % 0 02/06/21 08:06: Sodium 134 L, Potassium 4.3, Chloride 103, Carbon Dioxide 22.0, Anion Gap 9, BUN 27 H, Creatinine 1.46 H, Estim Creat Clear Calc 45.02, Est GFR (MDRD) Af Amer 59 L, Est GFR (MDRD) Non-Af 49 L, BUN/Creatinine Ratio 18.5, Glucose 173 H, Calcium 8.2 L 02/06/21 10:52: WBC 14.9 H, RBC 3.42 L, Hgb 9.5 L, Hct 30.6 L, MCV 89.5, MCH 27.8, MCHC 31.0 L, RDW Std Deviation 54.7 H, RDW Coeff of Jael 16.6 H, Plt Count 196, MPV 10.4, Immature Gran % (Auto) 0.500, Neut % (Auto) 85.4 H, Lymph % (Auto) 6.0 L, [place] % (Auto) 7.7, Eos % (Auto) 0.2, Baso % (Auto) 0.2, Absolute Neuts (auto) 12.7 H, Absolute Lymphs (auto) 0.89, Nucleated RBC % 0 02/06/21 11:05: POC Glucose 263 H Micro: Microbiology 02/04/21 15:15 Nasal Secretion SARS-CoV-2 Antigen (Rapid) - Final 02/04/21 12:00 Nasal Secretion SARS-CoV-2 Antigen (Rapid) - Final Physical Exam Const no apparent distress Extremity Extremity Narrative: Occlusive dressing still intact. There is some minor saturation on the lower third of the dressing. There is no surrounding erythema, warmth, or induration noted. Patient denies tenderness on palpation. Patient does have palpable pulses today. He does have intact motor function of the ankle/toes on command today. He states that he does feel light touch throughout the extremity. He has soft compartments without any signs of seroma or hematoma. Does not appear to have any calf tenderness or pain with Homans. Assessment & Plan Assessment/Plan (1) Status post-operative repair of closed fracture of right hip: PLAN: Patient seen today postop day 1 from right hip hemiarthroplasty. At this time there are no concerns with nursing. Patient is alert without any signs of distress in the room today. No signs of infection around the incision site and no signs of seroma/hematoma or other DVT. He was neuro vascularly intact today. Continue to leave the dressing intact for another 48 hours. Will remove at 72 hours postop and then cleanse daily with Betadine. Can continue with OT/PT being weightbearing as tolerated. Continue ice in the area and SCDs while in bed. Can continue with abduction pillow or 2 pillows between legs while in bed. Continue anticoagulation. Labs reviewed showing some slight decrease in white count as well as decrease in hemoglobin which will continue to be followed by hospitalist.
--- NOTE | 2021-02-06 14:19 | DS.PCM_ITS ---
Providers Date of Admission: 02/04/21 Primary Care Physician: [facility] Consultations 02/04/21 15:12 Consult: Orthopedics Routine Consulting Provider: Abdiel Davis Reason for Consult: right hip fracture EMERGENT Consult: No MD Notified: Yes Date Notified: 02/04/21 Time Notified: 15:01 Method of Notification: Verbal Reason For Visit: RIGHT HIP FRACTURE Diagnosis Discharge Diagnosis (1) Status post-operative repair of closed fracture of right hip: Status: Acute Code(s): Z98.890 - Other specified postprocedural states; Z87.81 - Personal history of (healed) traumatic fracture Medications at Discharge Home Medications atorvastatin 40 mg PO QHS 02/17/16 clopidogrel 75 mg PO DAILY 02/17/16 isosorbide mononitrate 30 mg PO DAILY 02/17/16 metoprolol tartrate 25 mg PO BID 02/17/16 acetaminophen 500 mg PO Q6H PRN PRN 12/12/17 glipizide 5 mg PO BID 12/12/17 lisinopril [Zestril] 5 mg PO QHS 12/12/17 alogliptin 12.5 mg PO DAILY 12/09/20 cholecalciferol (vitamin D3) [Vitamin D3] 125 mcg PO DAILY 12/09/20 gabapentin 100 mg PO LUNCH 12/09/20 gabapentin 200 mg PO BID 12/09/20 ipratropium-albuterol 3 ml INHALATION Q6H PRN 02/04/21 pantoprazole 40 mg PO DAILY 02/04/21 sertraline [Zoloft] 50 mg PO DAILY 02/04/21 apixaban [Eliquis] 2.5 mg PO BID #0 tab 02/06/21 oxycodone 5 mg PO Q4H PRN PRN 1 Days #6 tab 02/06/21 sennosides-docusate sodium [Stool Softener-Stimulant Laxat] 2 tab PO BID #0 tab 02/06/21 Hospital Course Operations total hip replacement (02/05/2021) Procedures 2-D Echocardiogram Summary of Care Provided Minutes Spent on Discharge: 45 Hospital Course: Mr. Michele is an 85-year-old white male with significant dementia who presented to the emergency department at [facility] on 02/04/2021 from an [facility] where he resides after suffering an unwitnessed fall on the morning of admission. He had x-rays done due to right hip pain and these x- rays done at the shelter showed right hip fracture. The patient was then transferred to the emergency department here for further evaluation and work-up. He had repeat x-rays in the ED that showed a nondisplaced femoral neck fracture on the right. He had a CT of his brain which showed chronic involutional c hanges. He had a mild leukocytosis, a stably elevated serum creatinine, and hyperglycemia on admission. The patient was noted to be DNR CC on admission but after discussion with his daughter they wish the fracture to be repair so the patient can ambulate and to assist with pain control. An echocardiogram was performed on the day of admission and showed a stable EF of 45% with no LV wall motion abnormalities, stage I diastolic dysfunction and mild to moderate mitral valve annular calcification. He was taken to the operating room on 02/05/2021 early in the morning and a right hip hemiarthroplasty was performed. The patient was seen by physical therapy and his muscle strength was limited on the right most likely due to pain in the postoperative period and he needed quite a bit of assistance with movement. He did have retropushing and static standing and was unwilling to shift weight anterior or take a small step. They did feel that his rehab potential was fair to good but will be limited by his dementia. On postop day 1 his hemoglobin dropped some but was stable on repeat. His white count has slightly improved and all of his other labs were stable upon comparison to previous day. We did feel it was imperative to get him back to his home environment as he was suffering from some delirium likely related to his dementia, recent surgery, and the fact that he was in an unfamiliar setting. I discussed the case with his daughter and she is concerned that he is becoming more impaired and after discussion felt that he may be more appropriate for the memory unit which is available at his current [facility]. I would highly recommend transition to the memory unit at this time given his memory impairment and recent falls. The daughter did report that he had 5 falls prior to this f racture at the shelter related to his inability to remember that he needed help prior to ambulating. He was discharged in stable condition on 02/06/2021. He is to follow-up with Dr. Davis in 2 weeks. He is weightbearing as tolerated on his right lower extremity with standard hip precautions status post right hip hemiarthroplasty. He is to take Eliquis 2.5 mg for 3 weeks and hold his Plavix while he is on Eliquis. He may then restart his Plavix at that time. His april need removed in 10 to 14 days. He is to keep the current dressing on for total of 72 hours after which it can be removed and he may shower and then have the incision cleaned with Betadine and redressed. His daughter is aware that his overall mortality is high given his age, memory impairment, and recent hip fracture. Discharge diagnoses: Right femoral neck fracture status post right hemiarthroplasty Acute anemia secondary to hemodilution and surgical blood loss -Hemoglobin stable at discharge Leukocytosis-likely reactive Chronic normocytic anemia CKD stage IIIb CAD Hypertension Hyperlipidemia DM-2 Diabetic neuropathy GERD HFrEF-EF 45%--> compensated Dementia Depression Physical Exam Const alert and no apparent distress Constitutional Narrative: Elderly white male sitting up in bed, nursing at bedside, appears comfortable, talk socially but overall minimal interaction and exam is limited secondary to dementia General Appearance: cooperative, comfortable, well kempt and well developed Orientation / Consciousness: confused and disoriented Exam Limitations: no limitations HEENT normocephalic, head/scalp atraumatic, hearing grossly normal bilaterally and moist oral mucous membranes Eyes PERRL, EOMs intact bilaterally and conjunctivae normal Neck no lymphadenopathy, supple, no JVD and no carotid bruits Resp normal respiratory effort, no retractions, no use of accessory muscles and clear to auscultation bilaterally Resp Narrative: Diminished but clear Auscultation: Negative for crackles, rales, rhonchi or wheezes Cardio regular rate, regular rhythm, S1 normal heart sound, S2 normal heart sound, no murmurs, no rub, no gallops, no clicks and no JVD GI normal to inspection, nondistended, normoactive bowel sounds, soft to palpation, non-tender, non-distended and hepatosplenomegaly Extremity no clubbing, cyanosis or edema Extremity Narrative: MARY hose bilateral lower extremities with polar ice on right hip Skin no rashes or lesions noted, skin turgor normal and no jaundice Neuro CN's II-XII intact bilaterally and no focal motor deficits Neuro Narrative: Moves all extremities except postoperative surgical hip, patient is confused Sensorium / Orientation: awake and alert Psych Psych Narrative: Pleasantly confused Weight / BMI Weight Weight: 93.44 kg Body Mass Index (BMI) 25.7 ABG / Lab / Microbiology Data Result Diagrams: 02/06/21 10:52 02/06/21 08:06 Laboratory: Laboratory Results - last 24 hr 02/05/21 17:08: POC Glucose 189 H 02/05/21 21:37: POC Glucose 189 H 02/06/21 06:12: POC Glucose 182 H 02/06/21 08:06: WBC 15.2 H, RBC 3.62 L, Hgb 9.9 L, Hct 32.2 L, MCV 89.0, MCH 27.3, MCHC 30.7 L, RDW Std Deviation 53.8 H, RDW Coeff of Jael 16.5 H, Plt Count 213, MPV 10.3, Immature Gran % (Auto) 0.500, Neut % (Auto) 82.1 H, Lymph % (Auto) 8.3 L, [place] % (Auto) 8.6, Eos % (Auto) 0.3, Baso % (Auto) 0.2, Absolute Neuts (auto) 12.4 H, Absolute Lymphs (auto) 1.26, Nucleated RBC % 0 02/06/21 08:06: Sodium 134 L, Potassium 4.3, Chloride 103, Carbon Dioxide 22.0, Anion Gap 9, BUN 27 H, Creatinine 1.46 H, Estim Creat Clear Calc 45.02, Est GFR (MDRD) Af Amer 59 L, Est GFR (MDRD) Non-Af 49 L, BUN/Creatinine Ratio 18.5, Glucose 173 H, Calcium 8.2 L 02/06/21 10:52: WBC 14.9 H, RBC 3.42 L, Hgb 9.5 L, Hct 30.6 L, MCV 89.5, MCH 27.8, MCHC 31.0 L, RDW Std Deviation 54.7 H, RDW Coeff of Jael 16.6 H, Plt Count 196, MPV 10.4, Immature Gran % (Auto) 0.500, Neut % (Auto) 85.4 H, Lymph % (Auto) 6.0 L, [place] % (Auto) 7.7, Eos % (Auto) 0.2, Baso % (Auto) 0.2, Absolute Neuts (auto) 12.7 H, Absolute Lymphs (auto) 0.89, Nucleated RBC % 0 02/06/21 11:05: POC Glucose 263 H Microbiology: Microbiology 02/04/21 15:15 Nasal Secretion SARS-CoV-2 Antigen (Rapid) - Final 02/04/21 12:00 Nasal Secretion SARS-CoV-2 Antigen (Rapid) - Final D/C Instructions Discharge Diet: Low fat / Low cholesterol Discharge Activity: May Not Shower (Until 02/10/2021) Meaningful Use Info Meaningful Use Diagnoses (Choose all that apply): None applicable Discharge Plan Admission Admit Date/Time: 02/04/21 15:05 Primary Reason for Your Visit: Right hip fracture status post right hemiarthroplasty Attending Provider: Ewa Schulte Primary Care Provider: [facility],[place] Consulting Providers: Abdiel Davis Discharge Orders/Prescriptions Prescriptions: New sennosides-docusate sodium [Stool Softener-Stimulant Laxat] 8.6-50 mg Tablet 2 tab PO BID Qty: 0 RF: 0 oxycodone 5 mg Tablet 5 mg PO Q4H PRN PRN (Reason: Pain Score 4-10) 1 Days Qty: 6 RF: 0 Eliquis 2.5 mg Tablet 2.5 mg PO BID Qty: 0 RF: 0 Continued atorvastatin 40 MG tablet 40 mg PO QHS RF: 0 isosorbide mononitrate 30 MG tablet extended release 24 hr 30 mg PO DAILY RF: 0 metoprolol tartrate 25 MG tablet 25 mg PO BID RF: 0 lisinopril [Zestril] 5 MG tablet 5 mg PO QHS RF: 0 glipizide 5 MG tablet 5 mg PO BID RF: 0 acetaminophen 500 MG tablet 500 mg PO Q6H PRN PRN (Reason: Pain) RF: 0 gabapentin 100 mg Capsule 200 mg PO BID RF: 0 gabapentin 100 mg Capsule 100 mg PO LUNCH RF: 0 cholecalciferol (vitamin D3) [Vitamin D3] 125 mcg (5,000 unit) Tablet 125 mcg PO DAILY RF: 0 alogliptin 12.5 mg Tablet 12.5 mg PO DAILY RF: 0 pantoprazole 40 mg Tablet,Delayed Release (Dr/Ec) 40 mg PO DAILY RF: 0 ipratropium-albuterol 0.5 mg-3 mg(2.5 mg base)/3 mL Solution For Nebulization 3 ml INHALATION Q6H PRN (Reason: Wheezing) RF: 0 sertraline [Zoloft] 50 mg Tablet 50 mg PO DAILY RF: 0 Held clopidogrel 75 MG tablet 75 mg PO DAILY RF: 0 Hold Instructions: Resume on 02/19/21. Referrals / Follow Up: Abdiel Davis DO [STAFF PHYSICIAN] - [facility]eks [facility] [Primary Care Provider] - Disposition Disposition (needs filled in before D/C Order can be placed): [facility] Charges/Coding Visit Charges Inpatient E&M: 12116 SNF Disch >30 Min
--- NOTE | 2021-02-06 14:27 | TREXTCAR_ITS ---
Diet 02/05/21 14:56 Diet: Regular - General Is pt able to select menu?: No Routine Orders/Code Status Suppository Frequency: Daily PRN O2 Frequency: PRN Keep PO Greater than or Equal to (%): 92 Routine Lab Work: CBC (Check on 02/08/2021) and BMP (Check on 02/08/2021) Code Status: DNRCC Wound(s) RIGHT HIP: Wound Type: Surgical Incision Dressing Change: Dressing should be undisturbed for another 48 hours and then patient may re Suggestions for Active Care Change Position every (hours): 2 Positions to Avoid: Patient with standard hip precautions for right lower extremity/2 pillows b Therapies Weight Bearing: Weight bearing as tolerated Extremity Affected:: Right Lower Physical Therapy: Eval and Treat Occupational Therapy: Eval and Treat Problem/Diagnosis (1) Status post-operative repair of closed fracture of right hip: Status: Acute Allergies/Procedures Done in Hospital Allergies venom-honey bee [bee venom (honey bee)] Allergy (Verified 02/04/21 11:05) Hives Procedures: 2-D Echocardiogram and - (Right total hip arthroplasty) Type of Care/Length of Stay Estimated LOS: More Than 30 Days Type of Care Needed: Intermediate Rehab Potential: Fair Prognosis: Poor Additional Orders/Day of Discharge Additional Orders: Palliative care consultation Please transition patient to memory unit Day of Discharge: 02/06/21 Dietary and Speech Recommendations Dietitian Recommendations/Changes: As medically able, rec diet as tolerated to Cardiac/Carbohydrate Controlled Discharge Plan Admission Admit Date/Time: 02/04/21 15:05 Primary Reason for Your Visit: Right hip fracture status post right hemiarthroplasty Attending Provider: Ewa Schulte Primary Care Provider: [facility],[place] Consulting Providers: Abdiel Davis Discharge Orders/Prescriptions Prescriptions: New sennosides-docusate sodium [Stool Softener-Stimulant Laxat] 8.6-50 mg Tablet 2 tab PO BID Qty: 0 RF: 0 oxycodone 5 mg Tablet 5 mg PO Q4H PRN PRN (Reason: Pain Score 4-10) 1 Days Qty: 6 RF: 0 Eliquis 2.5 mg Tablet 2.5 mg PO BID Qty: 0 RF: 0 Continued atorvastatin 40 MG tablet 40 mg PO QHS RF: 0 isosorbide mononitrate 30 MG tablet extended release 24 hr 30 mg PO DAILY RF: 0 clopidogrel 75 MG tablet 75 mg PO DAILY RF: 0 metoprolol tartrate 25 MG tablet 25 mg PO BID RF: 0 lisinopril [Zestril] 5 MG tablet 5 mg PO QHS RF: 0 glipizide 5 MG tablet 5 mg PO BID RF: 0 acetaminophen 500 MG tablet 500 mg PO Q6H PRN PRN (Reason: Pain) RF: 0 gabapentin 100 mg Capsule 200 mg PO BID RF: 0 gabapentin 100 mg Capsule 100 mg PO LUNCH RF: 0 cholecalciferol (vitamin D3) [Vitamin D3] 125 mcg (5,000 unit) Tablet 125 mcg PO DAILY RF: 0 alogliptin 12.5 mg Tablet 12.5 mg PO DAILY RF: 0 pantoprazole 40 mg Tablet,Delayed Release (Dr/Ec) 40 mg PO DAILY RF: 0 ipratropium-albuterol 0.5 mg-3 mg(2.5 mg base)/3 mL Solution For Nebulization 3 ml INHALATION Q6H PRN (Reason: Wheezing) RF: 0 sertraline [Zoloft] 50 mg Tablet 50 mg PO DAILY RF: 0 Referrals / Follow Up: Abdiel Davis DO [STAFF PHYSICIAN] - [facility] Weeks [facility] [Primary Care Provider] - Disposition Disposition (needs filled in before D/C Order can be placed): [facility]
[2021-02-06] MEDS: Acetaminophen 500 MG Tablet PO (16:04)
[2021-02-06 16:15] LABS: Bedside Glucose 173 mg/dL (70-110)
== END 2021-02-06 20:43 | disposition skilled nursing facility (03) | DRG 522 ==
LOC: ED 13:40 → MS3 14:22
PROVIDERS: Orthopaedic Surgery; Admitting Provider Internal Medicine; Emergency Provider Emergency Medicine; Visit Provider Internal Medicine
PROC: 0SRR01A Replacement of Right Hip Joint, Femoral Surface with Metal Synthetic Substitute, Uncemented, Open Approach (ICD-10-PCS; CPT 27125; principal; 2021-02-05 07:10)
DX: M80.851A Other osteoporosis with current pathological fracture, right femur, initial encounter for fracture (principal); I13.0 Hypertensive heart and chronic kidney disease with heart failure and stage 1 through stage 4 chronic kidney disease, or unspecified chronic kidney disease; I50.20 Unspecified systolic (congestive) heart failure; S72.001A Fracture of unspecified part of neck of right femur, initial encounter for closed fracture; K21.9 Gastro-esophageal reflux disease without esophagitis; J44.9 Chronic obstructive pulmonary disease, unspecified; E78.5 Hyperlipidemia, unspecified; F41.9 Anxiety disorder, unspecified; F32.9 Major depressive disorder, single episode, unspecified; I10 Essential (primary) hypertension; I25.10 Atherosclerotic heart disease of native coronary artery without angina pectoris; E11.40 Type 2 diabetes mellitus with diabetic neuropathy, unspecified; Z95.1 Presence of aortocoronary bypass graft; F17.210 Nicotine dependence, cigarettes, uncomplicated; G30.9 Alzheimer's disease, unspecified; F02.80 Dementia in other diseases classified elsewhere, unspecified severity, without behavioral disturbance, psychotic disturbance, mood disturbance, and anxiety; E11.22 Type 2 diabetes mellitus with diabetic chronic kidney disease; Z66 Do not resuscitate; N18.32 Chronic kidney disease, stage 3b; Z79.899 Other long term (current) drug therapy; Z79.02 Long term (current) use of antithrombotics/antiplatelets; Z79.84 Long term (current) use of oral hypoglycemic drugs; Z91.81 History of falling
CPT/HCPCS: 36415; 70450; 71045; 73502; 80048; 82962; 85025; 86850; 86900; 86901; 87426; 88305; 88307; 88311; 93005; 93306; 94640; 97162; 97166; 99251; 99285; 99406; C1776; J7030; J7120; A4216; G0463; J2405; J3490

== ENCOUNTER → 2021-02-19 10:46 | Outpatient (CLI) | payer MEDICARE, BC, SELFPAY ==
--- NOTE | 2021-02-19 10:53 | CT_ITS ---
STUDY: CT ABDOMEN AND PELVIS WITHOUT CONTRAST REASON FOR EXAM: Male, 85 years old. ABD DISTENTION/PAIN/EDEMA. Recent right hip replacement. RADIATION DOSAGE (If Supplied By Facility): CTDIvol = ( 30.11 ) mGy, DLP = ( 1564.67 ) mGycm TECHNIQUE: Transaxial images were obtained from the dome of the diaphragm to the symphysis pubis without oral contrast, and without intravenous contrast. Sagittal and coronal images were reconstructed. Individualized dose optimization techniques were used for this CT. COMPARISON: None. FINDINGS: Calcified right pleural plaques. Increased markings at the lung bases suggestive of scarring. Coronary artery calcification. Normal liver. Normal gallbladder and extrahepatic biliary system. Normal spleen. Normal pancreas. There is a small, circumscribed, smooth, low attenuation left adrenal mass, consistent with an adrenal adenoma. This measures 2 cm. Normal right adrenal gland. 6.1 cm x 4.8 cm cyst in the medial mid inferior pole of the right kidney. 5.1 cm by 5.4 cm cyst in the upper pole of the left kidney. Tiny nonobstructive left intrarenal calculi. Mild degree of bilateral hydronephrosis and hydroureter. Normal visualized stomach. Normal small intestine. Normal colon. The appendix is visualized and appears normal. There is diffuse atherosclerotic calcification of the abdominal aorta and the major visceral branches, without a demonstrated aneurysm. Normal inferior vena cava. Normal retroperitoneum. Markedly distended urinary bladder. Normal abdominal wall. Heterogeneous appearance of the L3 vertebrae without loss of height. Metastatic disease should be ruled out. There are diffuse degenerative changes of the visualized lumbar spine. Status post right total hip replacement. CT/Abdomen/Pelvis without Cont IMPRESSION: Marked degree of urinary bladder distention with bilateral hydronephrosis and hydroureter. Heterogeneous appearance of the L3 vertebrae with loss of height. Metastatic deposit should be ruled out. Calcified pleural plaques on the right side. Electronically Signed: Rikki Hastings MD at 12:19 EDT , Service support ,
== END ==
PROVIDERS: Visit Provider Registered Nurse
DX: R14.0 Abdominal distension (gaseous) (principal)
CPT/HCPCS: 74176